=== PATIENT | female | born 1945 | race Two or more races ===

== ENCOUNTER 2020-08-20 08:28 | Outpatient (REF) | payer MEDICARE, SELFPAY ==
[2020-08-20 09:55] LABS: Estimated Average Glucose 103 mg/dL; Hemoglobin A1c % 5.2 %
[2020-08-20 10:12] LABS: Alanine Aminotransferase 15 U/L (0-31); Alkaline Phosphatase 69 U/L (39-117); Anion Gap 12 (12-20); Aspartate Amino Transferase 34 U/L (5-31); Bilirubin Total 0.3 mg/dL (0.0-1.0); Blood Urea Nitrogen 12 mg/dL (9-16); Calcium 8.7 mg/dL (8.4-10.2); Carbon Dioxide 29 mmol/L (22-29); Chloride 104 mmol/L (96-108); Cholesterol 103 mg/dL; Estimated Glomerular Filt Rate > 60; Glucose Fasting 85 mg/dL (60-99); HDL Cholesterol 42 mg/dL; LDL Cholesterol Calculated 51 mg/dl; Potassium 3.8 mmol/l (3.3-5.1); Sodium 141 mmol/L (135-145); Total Protein 6.8 g/dL (6.5-8.0); Triglycerides 52 mg/dL
== END 2020-08-20 08:29 | disposition home or self-care (01) ==
LOC: HO.LAB 08:28
PROVIDERS: PCP Internal Medicine; Visit Provider Internal Medicine
DX: E78.00 Pure hypercholesterolemia, unspecified (principal)
CPT/HCPCS: 80053; 80061; 83036

== ENCOUNTER 2020-09-02 14:51 | Outpatient (REF) | payer MEDICARE, SELFPAY | END 2020-09-02 14:52 | disposition home or self-care (01) | LOC: HO.LAB 14:51 | PROVIDERS: Visit Provider Internal Medicine | DX: Z20.828 Contact with and (suspected) exposure to other viral communicable diseases (principal) | CPT/HCPCS: C9803; U0003 ==

== ENCOUNTER 2020-10-17 13:39 | Outpatient (REF) | payer MEDICARE, SELFPAY | END 2020-10-17 13:40 | disposition home or self-care (01) | LOC: HO.LAB 13:39 | PROVIDERS: Visit Provider Internal Medicine | DX: Z20.828 Contact with and (suspected) exposure to other viral communicable diseases (principal) | CPT/HCPCS: C9803; U0003 ==

== ENCOUNTER 2021-01-24 15:26 | Outpatient (REF) | payer MEDICARE, SELFPAY | END 2021-01-24 15:27 | disposition home or self-care (01) | LOC: HO.HOSX 15:26 | PROVIDERS: Visit Provider Orthopaedic Surgery | DX: Z13.89 Encounter for screening for other disorder (principal) ==

== ENCOUNTER 2021-01-30 09:35 | Outpatient (REF) | payer MEDICARE, SELFPAY ==
[2021-01-30 10:21] LABS: MANUAL DIFF FLAG NO
[2021-01-30 10:31] LABS: Basophils Percent Auto 0.5 % (0-2); Eosinophils Absolute Auto 0.1 X10*3/uL (0.0-0.4); Eosinophils Percent Auto 1.6 % (0-4); Hematocrit 37.8 % (37-47); Hemoglobin 12.4 g/dl (12.0-16.0); Imm Gran Abs Auto 0.01 X10*3/uL (0.00-0.03); Imm Gran Pct Auto 0.2 % (0.0-0.4); Lymphocytes Absolute Auto 1.4 X10*3/uL (1.2-4.9); Lymphocytes Percent Auto 32.3 % (20-40); Mean Corpuscular HGB Conc 32.8 g/dl (31.0-35.0); Mean Corpuscular Hemoglobin 30.5 pg (27.0-33.0); Mean Corpuscular Volume 93.1 fL (80-98); Mean Platelet Volume 10.4 fL (9.4-12.3); Monocytes Absolute Auto 0.3 X10*3/uL (0.1-1.2); Monocytes Percent Auto 6.1 % (2-11); Neutrophils Absolute Auto 2.5 X10*3/uL (2.0-8.3); Neutrophils Percent Auto 59.3 % (45-73); Platelet Count 291 X10*3/uL (160-400); Red Blood Count 4.06 X10*6/uL (4.20-5.50); Red Cell Distribution Width 13.1 % (11.0-16.0); White Blood Count 4.3 X10*3/uL (4.8-10.8)
[2021-01-30 10:46] LABS: Alanine Aminotransferase 18 U/L (0-31); Albumin Level 3.9 g/dL (3.5-5.0); Alkaline Phosphatase 66 U/L (39-117); Aspartate Amino Transferase 27 U/L (5-31); Bilirubin Total 0.5 mg/dL (0.0-1.0); Blood Urea Nitrogen 12 mg/dL (9-16); Calcium 9.1 mg/dL (8.4-10.2); Cholesterol 123 mg/dL; Estimated Glomerular Filt Rate > 60; Glucose Random 95 mg/dL (60-115); HDL Cholesterol 45 mg/dL; LDL Cholesterol Calculated 62 mg/dl; Total Protein 6.8 g/dL (6.5-8.0); Triglycerides 81 mg/dL
[2021-01-30 10:56] LABS: Anion Gap 11 (12-20); Carbon Dioxide 30 mmol/L (22-29); Chloride 105 mmol/L (96-108); Potassium 3.8 mmol/L (3.3-5.1); Sodium 142 mmol/L (135-145)
[2021-01-30 11:10] LABS: Free T4 (Free Thyroxine) 0.84 ng/dL (0.71-1.85); Thyroid Stimulating Hormone 0.88 uIU/mL (0.32-4.0); Vitamin D 25-OH Total 13.9 ng/mL (>30)
[2021-01-30 11:22] LABS: Folate 18.3 ng/mL (> or = 4.0); Vitamin B12 1196 pg/mL (200-900)
== END 2021-01-30 09:36 | disposition home or self-care (01) ==
LOC: HO.LAB 09:35
PROVIDERS: PCP Internal Medicine; Visit Provider Internal Medicine
DX: E78.00 Pure hypercholesterolemia, unspecified (principal)
CPT/HCPCS: 36415; 80053; 80061; 82306; 82607; 82746; 84439; 84443; 85025

== ENCOUNTER 2021-06-20 14:30 | Outpatient (REF) | payer MEDICARE, SELFPAY ==
--- NOTE | ~2021-06-20 | MM_ITS ---
EXAMINATION: MM SCREENING DIGITAL BREAST TOMOSYNTHESIS, BILATERAL CLINICAL INFORMATION: Screening. Asymptomatic. The lifetime risk of breast cancer based on the Tyrer-Cuzick Model is 3%. COMPARISON: Mammography: 11/24/2019, 11/06/2018, 10/25/2017 TECHNIQUE: Digital breast tomosynthesis is performed in both the craniocaudal and mediolateral oblique views along with computer-aided detection (CAD). Synthesized 2D images are generated from the tomosynthesis. FINDINGS: There are scattered areas of fibroglandular density (ACR BI-RADS breast composition Category b). There are no significant masses, abnormal calcifications, or other abnormalities. Parenchymal pattern is similar to prior studies. No developing density. No significant changes. MM/MM tomosynthesis screening BI IMPRESSION: No mammographic evidence of malignancy. ASSESSMENT: BI-RADS 1: Negative RECOMMENDATION: Routine annual mammography screening. This patient's information was entered into a reminder system with a target due date for their next mammogram.
== END 2021-06-20 14:31 | disposition home or self-care (01) ==
LOC: HO.MAMMO 14:30
PROVIDERS: Visit Provider Internal Medicine
DX: Z12.31 Encounter for screening mammogram for malignant neoplasm of breast (principal)
CPT/HCPCS: 77063; 77067

== ENCOUNTER 2021-06-26 16:00 | Outpatient (REF) | payer MEDICARE, SELFPAY ==
[2021-06-26 17:05] LABS: Hematocrit 37.8 % (37-47); Hemoglobin 12.4 g/dl (12.0-16.0); Mean Corpuscular HGB Conc 32.8 g/dl (31.0-35.0); Mean Corpuscular Hemoglobin 30.4 pg (27.0-33.0); Mean Corpuscular Volume 92.6 fL (80-98); Mean Platelet Volume 10.3 fL (9.4-12.3); Platelet Count 300 X10*3/uL (160-400); Red Blood Count 4.08 X10*6/uL (4.20-5.50); Red Cell Distribution Width 12.9 % (11.0-16.0)
[2021-06-26 17:30] LABS: Alanine Aminotransferase 14 U/L (0-31); Albumin Level 4.2 g/dL (3.5-5.0); Alkaline Phosphatase 74 U/L (39-117); Anion Gap 12 (12-20); Aspartate Amino Transferase 24 U/L (5-31); Bilirubin Direct 0.2 mg/dL (0.0-0.5); Bilirubin Total 0.5 mg/dL (0.0-1.0); Blood Urea Nitrogen 12 mg/dL (9-16); Calcium 10.1 mg/dL (8.4-10.2); Carbon Dioxide 32 mmol/L (22-29); Chloride 104 mmol/L (96-108); Estimated Glomerular Filt Rate > 60; Glucose Random 88 mg/dL (60-115); Potassium 3.9 mmol/L (3.3-5.1); Sodium 144 mmol/L (135-145); Total Protein 7.4 g/dL (6.5-8.0)
[2021-06-26 17:53] LABS: Thyroid Stimulating Hormone 1.54 uIU/mL (0.32-4.0)
== END 2021-06-26 16:01 | disposition home or self-care (01) ==
LOC: HO.LAB 16:00
PROVIDERS: PCP Internal Medicine; Visit Provider Internal Medicine
DX: I42.9 Cardiomyopathy, unspecified (principal)
CPT/HCPCS: 36415; 80048; 80076; 84443; 85027

== ENCOUNTER 2021-07-10 07:58 | Day surgery (SDC) | payer MEDICARE, SELFPAY ==
[2021-07-04 15:26] VITALS: BMI 33.4
--- NOTE | 2021-07-06 07:37 | MHC.SHP ---
Pre-Procedural Eval Section A Date of Service: 07/06/21 The patient is an INPATIENT: No Changes since office visit: No Cold of Flu in the past 2 weeks, No New Medical Problems, No Changes in Medication and No Patient answered all questions The History & Physical has been completed within 30 days and I have reviewed it.: Yes Section B Chief Complaint: cataract right eye Allergies: Allergies Allergy/AdvReac Type Severity Reaction Status Date / Time Penicillins Allergy Severe DIFFICULTY Verified 06/26/21 15:20 BREATHING atorvastatin [From Lipitor] Allergy Unknown Unknown Verified 06/26/21 15:20 FRUITS Allergy Intermediate ITCHY Uncoded 07/14/20 15:38 THROAT, HOARSE VOICE SOMETIMES SOB Plan Diagnosis/Plan: Unchanged I have reviewed the history and physical and performed a pertinent physical examination on my patient. No changes have occurred unless specified.
--- NOTE | 2021-07-07 08:34 | P.CONAN_ITS ---
Documented by User: Nuria Gaviria NP 07/07/21 08:35 HPI - Anesthesia Eval Consult details Narrative: 76yo F for Right Cataract Extraction IOL Insertion PCP cleared No previous cataract on record [facility] Active Problems Active Problems: All Active Problems (Updated 07/04/21 @ 15:21 by Balbina Burr, MELANY) Knee pain, right (Acute) Anserine bursitis (Acute) Peripheral vascular disease (Acute) Osteoarthritis of knee (Acute) Vitamin D deficiency (Acute) Breast cancer screening by mammogram (Acute) Preoperative clearance (Acute) Cataract (Acute) Hypertension (Acute) Hypercholesterolemia (Acute) GERD (gastroesophageal reflux disease) (Acute) Anxiety (Acute) Cardiomyopathy (Acute) Obesity (BMI 30-39.9) (Acute) Asthma (Acute) Coronary artery disease (Acute) Past Medical History Medical History Anxiety Asthma Bile salt-induced diarrhea Cardiomyopathy Coronary artery disease COVID-19 vaccine series completed GERD (gastroesophageal reflux disease) Hypercholesterolemia Hypertension Ischemic colitis Mitral regurgitation Obesity (BMI 30-39.9) Vaginal vault prolapse Family History Family History Father Cancer Mother Cancer Surgical History Surgical History History of cholecystectomy History of neck surgery History of thumb surgery History of tubal ligation Social History Social History Housing: Condominium Alcohol intake: never Patient Tobacco Use Status: Never used Tobacco Second Hand Smoke Exposure: No Use of substances other than those prescribed or required for medical reasons: No Are you DNR?: No Advance Directives: No Advance Directives Information Provided: Yes (daughter states her mother does not have a HCP) Advance Directives on File: No Recently lost weight without trying: No Eating poorly because of decreased appetite: No Nutrition Risks: No Nutritional Risk service: No Current occupational status: disabled Meds Allergies Allergy/AdvReac Type Severity Reaction Status Date / Time Penicillins Allergy Severe DIFFICULTY Verified 06/26/21 15:20 BREATHING atorvastatin [From Lipitor] Allergy Unknown Unknown Verified 06/26/21 15:20 FRUITS Allergy Intermediate ITCHY Uncoded 07/14/20 15:38 THROAT, HOARSE VOICE SOMETIMES SOB Exam Exam Date and Time: July 07, 2021 0834 Height,Weight and Vital Signs: Height 5 ft 1 in Weight 80.286 kg Assessment and Plan Assessment Anesthesia Assessment: Chart Reviewed Documented by User: Audra Henning MD 07/10/21 11:17 [facility] Active Problems Active Problems: All Active Problems (Updated 07/04/21 @ 15:21 by Balbina Burr RN) Knee pain, right (Acute) Anserine bursitis (Acute) Peripheral vascular disease (Acute) Osteoarthritis of knee (Acute) Vitamin D deficiency (Acute) Breast cancer screening by mammogram (Acute) Preoperative clearance (Acute) Cataract (Acute) Hypertension (Acute). Uncontrolled Systolic 224mmHg today. Dr Osman aware. Hypercholesterolemia (Acute) GERD (gastroesophageal reflux disease) (Acute) Anxiety (Acute) Cardiomyopathy (Acute) Obesity (BMI 30-39.9) (Acute) Asthma (Acute) Coronary artery disease (Acute) Past Medical History Medical History Anxiety Asthma Bile salt-induced diarrhea Cardiomyopathy Coronary artery disease COVID-19 vaccine series completed GERD (gastroesophageal reflux disease) Hypercholesterolemia Hypertension Ischemic colitis Mitral regurgitation Obesity (BMI 30-39.9) Vaginal vault prolapse Family History Family History Father Cancer Mother Cancer Family history of problems with anesthesia: No Surgical History Surgical History History of cholecystectomy History of neck surgery History of thumb surgery History of tubal ligation History of Problems with Anesthesia: Yes (PONV) Social History Social History Housing: Condominium Alcohol intake: never Patient Tobacco Use Status: Never used Tobacco Second Hand Smoke Exposure: No Use of substances other than those prescribed or required for medical reasons: No Are you DNR?: No Advance Directives: No Advance Directives Information Provided: Yes (daughter states her mother does not have a HCP) Advance Directives on File: No Recently lost weight without trying: No Eating poorly because of decreased appetite: No Nutrition Risks: No Nutritional Risk service: No Current occupational status: disabled Meds Allergies Allergy/AdvReac Type Severity Reaction Status Date / Time Penicillins Allergy Severe DIFFICULTY Verified 06/26/21 15:20 BREATHING atorvastatin [From Lipitor] Allergy Unknown Unknown Verified 06/26/21 15:20 FRUITS Allergy Intermediate ITCHY Uncoded 07/14/20 15:38 THROAT, HOARSE VOICE SOMETIMES SOB Exam Height,Weight and Vital Signs: Height 5 ft 1 in Weight 80.286 kg Vital Signs Temp Pulse Resp BP Pulse Ox 07/10/21 09:35 96.5 F L 68 18 224/77 H 98 Airway Mallampati Class: II TM Dist: >3cm Neck ROM: Full Loose/Missing/Broken Teeth: Yes (Some broken) Heart: RRR Lungs: CTAB Assessment and Plan Assessment Anesthesia Assessment: Anesthesia Plan Discussed Final Anesthetic Review Family History of Problems with Anesthesia: No History of Problems with Anesthesia: Yes (PONV) NPO: Yes ASA Class: III Final Preanesthetic Review: No Changes in Pt Med Stat, Meds/Allgs Chart Reviewed, Consent Obtained/Reviewed and Anes Risks/Benef Reviewed Patient Risk: Intermediate Procedure Risk: Low Assessment/Block/Sedation in SS: Assess/Block/Sedation-SS Anesthetic Plan Anesthetic Plan: MAC: and Other (IV anti-emetic) Disposition: Standard PACU
[2021-07-10 09:35] VITALS: BP 224/77; PULSE 68; RESP 18; TEMP 35.8; O2SAT 98
[2021-07-10] MEDS: Tetracaine HCl/PF 0.5% Oph Sol 4 ML DROPS 1 DROP EYE-RIGHT (09:46)
[2021-07-10] MEDS: Tropicamide 1 % Ophth Sol 3 ML BTL 1 DROP EYE-RIGHT ×3 (09:47→09:55)
[2021-07-10] MEDS: Phenylephrine HCL 2.5% Oph SoL 2 ML BOTTLE 1 DROP EYE-RIGHT ×2 (09:48→09:53)
[2021-07-10] MEDS: Lactated Ringers 500 ML 50 ML IV (10:07)
--- NOTE | 2021-07-10 10:47 | HO.PNOPHT ---
Ophthalmology Procedure Procedure Date of Service: 07/10/21 Ophthalmology Viscoelastic: Ian Randolpht Dual Pack Pro Ophthalmology Lenses: TECSHEILA [id number] (22) Procedure Notes: PREOPERATIVE DIAGNOSIS: Decreased visual acuity right eye secondary to cataract POSTOPERATIVE DIAGNOSIS: Same PROCEDURE: Right cataract extraction with intraocular lens insertion SURGEON: Thomas Osman M.D. ANESTHESIA: Topical/MAC ESTIMATED BLOOD LOSS: None COMPLICATIONS: None After obtaining informed consent, the patient was brought to the operating room suite and placed in the supine position. After adequate sedation per anesthesia, topical drops of Tetracaine were given to the right eye. The eye was then prepped and draped in the usual sterile fashion. The operating room microscope was then positioned over the operative eye and a lid speculum placed. A paracentesis was created. Viscoelastic was then instilled into the anterior chamber. A three plane incision was then created temporally, utilizing a 2.85 mm keratome. Capsulotomy forceps were then utilized to create a circular tear capsulotomy. Hydrodissection and hydrodelineation were carried out until adequate mobilization of the nucleus occurred. Phacoemulsification was then utilized to remove the dense central nucleus followed by removal of the cortical material utilizing the automated aspiration irrigation unit. Viscoelastic was instilled into the posterior capsular bag followed by placement of a posterior chamber intraocular lens without difficulty. The residual Viscoelastic was then removed utilizing the automated IA machine. The wound was checked and found to be watertight. The patient tolerated the procedure well and the lid speculum was removed. Intracameral injection of Vigamox 0.1 mL followed by a subtenon injection of Kenalog-40 0.2 mL were administered. The patient will be seen in the a.m.
[2021-07-10 11:09] VITALS: BP 168/66; PULSE 49; RESP 16; TEMP 36.1; O2SAT 96
== END 2021-07-10 11:26 ==
LOC: HO.SSS 07:58
PROVIDERS: PCP Internal Medicine; Visit Provider Ophthalmology
PROC: (CPT 66985; principal; 2021-07-10 10:50)
DX: H25.11 Age-related nuclear cataract, right eye (principal); H52.4 Presbyopia; H40.013 Open angle with borderline findings, low risk, bilateral; Z83.511 Family history of glaucoma; H52.209 Unspecified astigmatism, unspecified eye; I10 Essential (primary) hypertension; J45.909 Unspecified asthma, uncomplicated; Z79.899 Other long term (current) drug therapy; Z79.82 Long term (current) use of aspirin; Z88.0 Allergy status to penicillin
CPT/HCPCS: 66984; J2250; J3010; J3300; V2632

== ENCOUNTER 2021-07-24 08:03 | Day surgery (SDC) | payer MEDICARE, SELFPAY ==
[2021-07-04 15:30] VITALS: BMI 33.4
--- NOTE | 2021-07-19 12:59 | MHC.SHP ---
Pre-Procedural Eval Section A Date of Service: 07/19/21 The patient is an INPATIENT: No Changes since office visit: No Cold of Flu in the past 2 weeks, No New Medical Problems, No Changes in Medication and No Patient answered all questions The History & Physical has been completed within 30 days and I have reviewed it.: Yes Section B Chief Complaint: cataract left eye Allergies: Allergies Allergy/AdvReac Type Severity Reaction Status Date / Time Penicillins Allergy Severe DIFFICULTY Verified 06/26/21 15:20 BREATHING atorvastatin [From Lipitor] Allergy Unknown Unknown Verified 06/26/21 15:20 FRUITS Allergy Intermediate ITCHY Uncoded 07/14/20 15:38 THROAT, HOARSE VOICE SOMETIMES SOB Plan Diagnosis/Plan: Unchanged I have reviewed the history and physical and performed a pertinent physical examination on my patient. No changes have occurred unless specified.
--- NOTE | 2021-07-21 08:46 | P.CONAN_ITS ---
Documented by User: Nuria Gaviria NP 07/21/21 08:48 HPI - Anesthesia Eval Consult details Narrative: 76yo F for Left Cataract Extraction IOL Insertion PCP cleared R eye 07/10/21 with MAC: Fent 50, Midaz 2, Labetolol 10 PMFSH Active Problems Active Problems: All Active Problems (Updated 07/04/21 @ 15:21 by Balbina Burr RN) Knee pain, right (Acute) Anserine bursitis (Acute) Peripheral vascular disease (Acute) Osteoarthritis of knee (Acute) Vitamin D deficiency (Acute) Breast cancer screening by mammogram (Acute) Preoperative clearance (Acute) Cataract (Acute) Hypertension (Acute) Hypercholesterolemia (Acute) GERD (gastroesophageal reflux disease) (Acute) Anxiety (Acute) Cardiomyopathy (Acute) Obesity (BMI 30-39.9) (Acute) Asthma (Acute) Coronary artery disease (Acute) Past Medical History Medical History Anxiety Asthma Bile salt-induced diarrhea Cardiomyopathy Coronary artery disease COVID-19 vaccine series completed GERD (gastroesophageal reflux disease) Hypercholesterolemia Hypertension Ischemic colitis Mitral regurgitation Obesity (BMI 30-39.9) Vaginal vault prolapse Family History Family History Father Cancer Mother Cancer Family history of problems with anesthesia: No Surgical History Surgical History History of cholecystectomy History of neck surgery History of thumb surgery History of tubal ligation History of Problems with Anesthesia: Yes (PONV) Social History Social History Housing: Condominium Alcohol intake: never Patient Tobacco Use Status: Never used Tobacco Second Hand Smoke Exposure: No Use of substances other than those prescribed or required for medical reasons: No Have you been hit, kicked, punched, or otherwise hurt by someone within the past year? If so, by whom?: No Are you DNR?: No Advance Directives: No Advance Directives Information Provided: Yes (daughter states her mother does n ot have a HCP) Advance Directives on File: No Recently lost weight without trying: No Eating poorly because of decreased appetite: No Nutrition Risks: No Nutritional Risk service: No Current occupational status: disabled Meds Allergies Allergy/AdvReac Type Severity Reaction Status Date / Time Penicillins Allergy Severe DIFFICULTY Verified 06/26/21 15:20 BREATHING atorvastatin [From Lipitor] Allergy Unknown Unknown Verified 06/26/21 15:20 FRUITS Allergy Intermediate ITCHY Uncoded 07/14/20 15:38 THROAT, HOARSE VOICE SOMETIMES SOB Exam Exam Date and Time: July 21, 2021 0846 Height,Weight and Vital Signs: Height 5 ft 1 in Weight 80.286 kg Assessment and Plan Assessment Anesthesia Assessment: Chart Reviewed Final Anesthetic Review Family History of Problems with Anesthesia: No History of Problems with Anesthesia: Yes (PONV) Documented by User: Freddie Lockwood MD 07/24/21 08:38 PMFSH Past Medical History Medical History Anxiety Asthma Bile salt-induced diarrhea Cardiomyopathy Coronary artery disease COVID-19 vaccine series completed GERD (gastroesophageal reflux disease) Hypercholesterolemia Hypertension Ischemic colitis Mitral regurgitation Obesity (BMI 30-39.9) Vaginal vault prolapse Family History Family History Father Cancer Mother Cancer Surgical History Surgical History History of cholecystectomy History of neck surgery History of thumb surgery History of tubal ligation Social History Social History Housing: Condominium Alcohol intake: never Patient Tobacco Use Status: Never used Tobacco Second Hand Smoke Exposure: No Use of substances other than those prescribed or required for medical reasons: No Have you been hit, kicked, punched, or otherwise hurt by someone within the past year? If so, by whom?: No Are you DNR?: No Advance Directives: No Advance Directives Information Provided: Yes (daughter states her mother does not have a HCP) Advance Directives on File: No Recently lost weight without trying: No Eating poorly because of decreased appetite: No Nutrition Risks: No Nutritional Risk service: No Current occupational status: disabled Meds Allergies Allergy/AdvReac Type Severity Reaction Status Date / Time Penicillins Allergy Severe DIFFICULTY Verified 06/26/21 15:20 BREATHING atorvastatin [From Lipitor] Allergy Unknown Unknown Verified 06/26/21 15:20 FRUITS Allergy Intermediate ITCHY Uncoded 07/14/20 15:38 THROAT, HOARSE VOICE SOMETIMES SOB Exam Airway Mallampati Class: II TM Dist: >3cm Neck ROM: Full Partial: Upper and Lower Loose/Missing/Broken Teeth: Yes (only 2 teeth) Heart: [id number] Lungs: CTA b/l Assessment and Plan Assessment Anesthesia Assessment: Anesthesia Plan Discussed Final Anesthetic Review NPO: Yes ASA Class: III Final Preanesthetic Review: No Changes in Pt Med Stat, Meds/Allgs Chart Reviewed, Consent Obtained/Reviewed and Anes Risks/Benef Reviewed Patient Risk: Intermediate Procedure Risk: Low Assessment/Block/Sedation in SS: Assess/Block/Sedation-SS Anesthetic Plan Anesthetic Plan: MAC: and Agree w/ Assess. and Plan Disposition: Standard PACU
[2021-07-24 08:27] VITALS: BP 136/52; PULSE 48; RESP 16; TEMP 36.7; O2SAT 100
[2021-07-24] MEDS: Tetracaine HCl/PF 0.5% Oph Sol 4 ML DROPS 1 DROP EYE-LEFT (08:36)
[2021-07-24] MEDS: Lactated Ringers 500 ML 50 ML IV (08:37)
[2021-07-24] MEDS: Tropicamide 1 % Ophth Sol 3 ML BTL 1 DROP EYE-LEFT ×3 (08:38→08:49)
[2021-07-24] MEDS: Phenylephrine HCL 2.5% Oph SoL 2 ML BOTTLE 1 DROP EYE-LEFT ×3 (08:41→08:54)
--- NOTE | 2021-07-24 09:52 | HO.PNOPHT ---
Ophthalmology Procedure Procedure Date of Service: 07/24/21 Ophthalmology Viscoelastic: Healon Duet Dual Pack Pro Ophthalmology Lenses: TECSHEILA [id number] (22) Procedure Notes: PREOPERATIVE DIAGNOSIS: Decreased visual acuity left eye secondary to cataract POSTOPERATIVE DIAGNOSIS: Same PROCEDURE: Left cataract extraction with intraocular lens insertion SURGEON: Thomas Osman M.D. ANESTHESIA: Topical/MAC ESTIMATED BLOOD LOSS: None COMPLICATIONS: None After obtaining informed consent, the patient was brought to the operation room suite and placed in the supine position. After adequate sedation per anesthesia, topical drops of Tetracaine were given to the left eye. The eye was then prepped and draped in the usual sterile fashion. The operating room microscope was then positioned over the operative eye and a lid speculum placed. A paracentesis was created. Viscoelastic was then instilled into the anterior chamber. A three plane incision was then created temporally, utilizing a 2.85 mm keratome. Capsulotomy forceps were then utilized to create a circular tear capsulotomy. Hydrodissection and hydrodelineation were carried out until adequate mobilization of the nucleus occurred. Phacoemulsification was then utilized to remove the dense central nucleus followed by removal of the cortical material utilizing the automated aspiration irrigation unit. Viscoat elastic was instilled into the posterior capsular bag followed by placement of a posterior chamber intraocular lens without difficulty. The residual Viscoat elastic was then removed utilizing the automated IA machine. The wound was check and found to be watertight. The patient tolerated the procedure well and the lid speculum was removed. Intracameral injection of Vigamox 0.1 mL followed by a subtenon injection of Kenalog-40 0.2 mL were administered. The patient will be seen in the a.m.
[2021-07-24 10:17] VITALS: BP 152/62; PULSE 66; RESP 17; TEMP 36.1; O2SAT 97
[2021-07-24] MEDS: ondansetron HCL 4 MG/2 ML VIAL IVPUSH (10:25)
== END 2021-07-24 10:38 | disposition home or self-care (01) ==
PROVIDERS: PCP Internal Medicine; Visit Provider Ophthalmology
PROC: (CPT 66985; principal; 2021-07-24 10:00)
DX: H25.12 Age-related nuclear cataract, left eye (principal); I10 Essential (primary) hypertension; J45.909 Unspecified asthma, uncomplicated; Z88.0 Allergy status to penicillin
CPT/HCPCS: 66984; J2250; J2405; J3010; J3300; V2632

== ENCOUNTER → 2021-12-07 14:54 | Outpatient (BNVA) | payer MEDICARE, SELFPAY | PROVIDERS: PCP Internal Medicine; Visit Provider Surgery Vascular Surgery | DX: I83.11 Varicose veins of right lower extremity with inflammation (principal) | CPT/HCPCS: 99202 ==

== ENCOUNTER 2022-01-15 09:02 | Outpatient (REF) | payer MEDICARE, SELFPAY ==
[2022-01-15 09:56] LABS: MANUAL DIFF FLAG NO
[2022-01-15 10:25] LABS: Basophils Percent Auto 0.5 % (0-2); Eosinophils Absolute Auto 0.1 X10*3/uL (0.0-0.4); Eosinophils Percent Auto 0.9 % (0-4); Hematocrit 37.5 % (37.0-47.0); Hemoglobin 12.1 g/dl (12.0-16.0); Imm Gran Abs Auto 0.03 X10*3/uL (0.00-0.03); Imm Gran Pct Auto 0.5 % (0.0-0.4); Lymphocytes Absolute Auto 1.5 X10*3/uL (1.2-4.9); Lymphocytes Percent Auto 27.7 % (20-40); Mean Corpuscular HGB Conc 32.3 g/dl (31.0-35.0); Mean Corpuscular Hemoglobin 30.3 pg (27.0-33.0); Mean Corpuscular Volume 93.8 fL (80.0-98.0); Mean Platelet Volume 10.4 fL (9.4-12.3); Monocytes Absolute Auto 0.3 X10*3/uL (0.1-1.2); Monocytes Percent Auto 4.9 % (2-11); Neutrophils Absolute Auto 3.6 x10*3/uL (2.0-8.3); Neutrophils Percent Auto 65.5 % (45-73); Platelet Count 256 X10*3/uL (160-400); Red Cell Distribution Width 13.3 % (11.0-16.0); White Blood Count 5.6 X10*3/uL (4.8-10.8)
[2022-01-15 10:36] LABS: Estimated Average Glucose 114 mg/dL; Hemoglobin A1c % 5.6 %
[2022-01-15 10:57] LABS: Alanine Aminotransferase 17 U/L (0-31); Albumin Level 3.9 g/dL (3.5-5.0); Alkaline Phosphatase 63 U/L (39-117); Anion Gap 11 (12-20); Aspartate Amino Transferase 28 U/L (5-31); Bilirubin Total 0.7 mg/dL (0.0-1.0); Blood Urea Nitrogen 8 mg/dL (9-16); Calcium 9.2 mg/dL (8.4-10.2); Carbon Dioxide 30 mmol/L (22-29); Chloride 104 mmol/L (96-108); Cholesterol 133 mg/dL; Estimated Glomerular Filt Rate > 60; Glucose Random 97 mg/dL (60-115); HDL Cholesterol 48 mg/dL; LDL Cholesterol Calculated 69 mg/dl; Potassium 3.5 mmol/L (3.3-5.1); Sodium 141 mmol/L (135-145); Triglycerides 80 mg/dL
[2022-01-15 10:59] LABS: B Type Natriuretic Peptide 863 pg/mL (<100)
[2022-01-15 11:23] LABS: Free T4 (Free Thyroxine) 0.94 ng/dL (0.71-1.85); Thyroid Stimulating Hormone 0.85 uIU/mL (0.32-4.0); Vitamin D 25-OH Total 15.3 ng/mL (>30)
[2022-01-15 11:38] LABS: Folate 12.2 ng/mL (> or = 4.0); Vitamin B12 734 pg/mL (200-900)
== END 2022-01-15 09:03 | disposition home or self-care (01) ==
LOC: HO.LAB 09:02
PROVIDERS: PCP Internal Medicine; Visit Provider Internal Medicine
DX: I10 Essential (primary) hypertension (principal); E78.00 Pure hypercholesterolemia, unspecified; I25.10 Atherosclerotic heart disease of native coronary artery without angina pectoris
CPT/HCPCS: 36415; 80053; 80061; 82306; 82607; 82746; 83036; 83880; 84439; 84443; 85025

== ENCOUNTER 2022-09-24 15:44 | Outpatient (REF) | payer OTHER, SELFPAY ==
[2022-09-29 12:10] LABS: Renin 1.92 ng/mL/h (0.25-5.82)
[2022-10-03 14:33] LABS: Catecholamine Frac, Total 888 pg/mL
== END 2022-09-24 15:45 | disposition home or self-care (01) ==
LOC: HO.LAB 15:44
PROVIDERS: PCP Internal Medicine; Visit Provider Internal Medicine Hypertension Specialist
DX: I10 Essential (primary) hypertension (principal)
CPT/HCPCS: 36415; 82088; 82384; 84244

== ENCOUNTER 2022-09-27 09:36 | Outpatient (REF) | payer OTHER, SELFPAY ==
--- NOTE | ~2022-09-27 | MM_ITS ---
EXAMINATION: MM SCREENING DIGITAL BREAST TOMOSYNTHESIS, BILATERAL CLINICAL INFORMATION: Screening. Asymptomatic. The lifetime risk of breast cancer based on the Tyrer-Cuzick Model is 1.8%. COMPARISON: Mammography: June 20, 2021 and studies dating back to April 22, 2014 TECHNIQUE: Digital breast tomosynthesis is performed in both the craniocaudal and mediolateral oblique views along with computer-aided detection (CAD). Synthesized 2D images are generated from the tomosynthesis. FINDINGS: There are scattered areas of fibroglandular density (ACR BI-RADS breast composition Category b). There are no significant masses, abnormal calcifications, or other abnormalities. MM/MM tomosynthesis screening BI IMPRESSION: No significant changes from prior exam. ASSESSMENT: BI-RADS 1: Negative RECOMMENDATION: Routine annual mammography screening. This patient's information was entered into a reminder system with a target due date for their next mammogram.
--- NOTE | ~2022-09-27 | MM_ITS ---
EXAMINATION: BONE DENSITOMETRY CLINICAL INDICATION: Age-related osteoporosis without current pathological fracture. COMPARISON: Previous BD dated 12/04/2016 and baseline BD dated 06/10/2008. TECHNIQUE: Using a [employer] DXA System (software version: 13.1) manufactured by [employer], dual-energy x-ray absorptiometry was performed of the lumbar spine and left hip. The images are of good technical quality. Summary results are attached. FINDINGS: AP SPINE L1-L2 (excluding L3 and L4): The data of L1-L4 has been changed to exclude the L3 and L4 vertebral bodies, because degenerative changes at these levels may cause overestimation of lumbar spine density. Current: BMD 1.364 g/cm2, Z-score 2.7, T-score 1.7, normal, 1.9% increase from previous, 4.9% increase from baseline (<5% change is not significant). Prior: BMD 1.338 g/cm2. Baseline: BMD 1.300 g/cm2. LEFT FEMUR, NECK: Current: BMD 0.927 g/cm2, Z-score 0.7, T-score -0.8, normal. Prior: BMD 1.021 g/cm2. Baseline: BMD 1.058 g/cm2. LEFT FEMUR, TOTAL: Current: BMD 1.139 g/cm2, Z-score 2.3, T-score 1.0, normal, 0.8% decrease from previous, 4.3% decrease from baseline (<5% change is not significant). Prior: BMD 1.148 g/cm2. Baseline: BMD 1.190 g/cm2. IDENTIFIED RISK FACTORS: Menopause, recurrent falls, history of fracture (adult). HISTORY OF FRACTURE: Wrist. MEDICATIONS: Vitamin D. MM/XR DEXA axial skeleton IMPRESSION: 1. DIAGNOSIS: Normal bone density based on the lowest T-score value of -0.8 in the femoral neck applying World Health Organization criteria. 2. 10-YEAR FRACTURE RISK PREDICTION, FRAX: According to the guidelines, FRAX calculation should only be performed on patients in the osteopenia bone density category. Therefore, FRAX was not performed on this patient. 3. Treatment Recommendations: NOF guidelines recommend consideration for treatment in postmenopausal women and men age 50 and older presenting with the following: -A hip or vertebral (clinical or morphometric) fracture. -T-score less than or equal to -2.5 at the femoral neck or spine after appropriate evaluation to exclude secondary causes. -Low bone mass at the hip or spine and a 10-year fracture probability by FRAX of greater than or equal to 3% for hip fracture or greater than or equal to 20% for major osteoporotic fracture based on the [place] adapted WHO algorithm. 4. Other Recommendations: All treatment decisions require clinical judgment and consideration of individual patient factors, including patient preferences, comorbidities, previous drug use, risk factors not captured in the FRAX model (e.g. frailty, falls, vitamin D deficiency, increased bone turnover, interval significant decline in bone density) and possible under or overestimation of fracture risk by FRAX. FUTURE SCAN RECOMMENDATION: People with diagnosed cases of osteoporosis or at high risk for fracture should have regular bone mineral density tests. For patients eligible for Medicare, routine testing is allowed once every 2 years. The testing frequency can be increased to one year for patients who have rapidly progressing disease, those who are receiving or discontinuing medical therapy to restore bone mass, or have additional risk factors.
== END 2022-09-27 09:37 | disposition home or self-care (01) ==
LOC: HO.MAMMO 09:36
PROVIDERS: PCP Internal Medicine; Visit Provider Internal Medicine
DX: Z12.31 Encounter for screening mammogram for malignant neoplasm of breast (principal); M81.0 Age-related osteoporosis without current pathological fracture
CPT/HCPCS: 77063; 77067; 77080

== ENCOUNTER → 2022-10-11 09:27 | Outpatient (REF) | payer OTHER, SELFPAY ==
--- NOTE | 2022-10-11 09:29 | CA_ITS ---
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 The calculated ejection fraction is 67% by biplane method. - There is mild aortic valve regurgitation. Findings Procedure Information Contrast agent, definity, is being given per protocol without apparent complications. Left Ventricle Normal left ventricular cavity size. There is normal left ventricular wall thickness. The left ventricular systolic function is normal. The calculated ejection fraction is 67% by biplane method. There is no evidence of regional wall motion abnormalities. Diastolic function is normal for age. Right Ventricle Normal right ventricular cavity size and systolic function. Atria Both atria are normal in size. Aortic Valve There is a normal trileaflet aortic valve. There is no aortic valve stenosis. There is mild aortic valve regurgitation. Mitral Valve The mitral valve appears normal. There is trace mitral valve regurgitation. There is no mitral valve stenosis. Pulmonic Valve The pulmonic valve is likely normal. Tricuspid Valve Normal tricuspid valve structure. There is trace tricuspid valve regurgitation. Tricuspid regurgitation envelope is inadequate for calculation of right ventricular systolic pressure. Great Vessels The asc aorta is normal in size. Venous The inferior vena cava is normal in size and collapses greater than 50% with inspiration. Pericardium/Pleural There is no evidence of pericardial effusion. Prior Study Comparison Changes noted compared to prior study dated: 05/29/2016. Wall motion abnormalities not seen. Measurements 2D Linear Measurements IVSd: 1.04 0.6-0.9/0.6-1.0 cm LVIDd: 4.26 3.9-5.3/4.2-5.9 cm LVIDd Index: 2.32 2.4-3.2/2.2-3.1 cm/m2 LVIDs: 2.87 2.0-3.6 cm LVPWd: 0.97 0.7-1.1 cm LA Diam: 3.60 2.7-3.8/3.0-4.0 cm LAIDs Index: 1.96 1.5-2.3 cm/m2 LV Mass: 175.83 67-162/88-224 g LV Mass Index: 95.56 43-95/49-115 g/m2 LVOT Diam: 1.90 3.0+(-)1.3 cm 2D Systolic Function EF 4C: 69.30 >55% EF 2C: 61.10 >55% EF BiP: 67.40 >55% Mitral Valve MV Pk E: 0.95 MV PK A: 0.88 MV Decel Time: 257.00 E/A: 1.10 E'Lateral: 10.20 E'Medial: 4.79 E/E' Med: 19.90 E/E' Lat: 9.30 PHT: 75.00 MVA PHT: 2.93 Decel Stafford: 3.70 Aortic Valve AoV Pk Russell: 1.83 AoV Mn Russell: 1.15 AoV VTI: 0.45 AoV Pk Grad: 13.00 Aov Mn Grad: 6.00 MUSA Cont.VTI: 2.15 AI Pk Russell: 4.52 AI Stafford: 2.17 LVOT LVOT Pk Russell: 1.26 LVOT Mn Russell: 0.85 LVOT VTI: 0.34 LVOT Pk Grad: 6.00 LVOT Mn Grad: 3.00 LVOT Diam: 1.90 LVOT Area: 2.84 Diastolic Function MV Pk E: 0.95 MV Pk A: 0.88 E/A: 1.10 E'Medial: 4.79 E/E' Med: 19.90 E' Laterial: 10.20 E/E' Lat: 9.30 Right Ventricle TAPSE (mm): 23.00 TVS' Russell: 11.20 Tricuspid Valve RA Press: 3.00 Great Vessels Aorta Sinus of Valsalva: 3.03 2.0-3.[address] Ridge: 2.38 1.7-3.4 cm Ao Asc: 3.30 2.1-3.4 cm Updated in Other Vendor System with Status of Final Wai Boone MD electronically signed on 10/13/2022 12:32:33 PM with status of Final
== END ==
LOC: HO.CARD 09:27
PROVIDERS: Visit Provider Internal Medicine
DX: I51.81 Takotsubo syndrome (principal)
CPT/HCPCS: 93306; Q9957

== ENCOUNTER 2022-12-31 10:04 | Outpatient (REF) | payer OTHER, SELFPAY ==
--- NOTE | ~2022-12-31 | US_ITS ---
EXAMINATION: US RETROPERITONEAL LIMITED (RENAL ONLY) RETROPERITONEAL DOPPLER CLINICAL INFORMATION: Essential hypertension. COMPARISON: None. TECHNIQUE: Routine grayscale imaging of kidneys was performed. In addition retroperitoneal Doppler was performed with attention to kidneys and aorta. FINDINGS: RIGHT KIDNEY: 9.9 x 4.6 x 6.0 cm (SAG x AP x TRV). The kidney is normal in size, contour, and echogenicity. Renal cortical thickness is normal. No calculi or focal parenchymal lesions. No hydronephrosis. LEFT KIDNEY: 10.6 x 5.4 x 4.7 cm (SAG x AP x TRV). The kidney is normal in size, contour, and echogenicity. Renal cortical thickness is normal. No calculi or focal parenchymal lesions. No hydronephrosis. DOPPLER IMAGING: Right Kidney: The proximal renal artery velocity measures 254 cm/s, midsegment measures 193 cm/s, distal segment measures 211 cm/s. Renal aortic ratio measures 2.99. Average resistive index 0.86. Left Kidney: The proximal renal artery velocity measures 163 cm/s, midsegment measures 1 58 cm/s and distal segment measures 109 cm/s. Renal aortic ratio measures 1.9. Average resistive index measures 0.82. The mid abdominal aorta peak systolic velocity measures 84.8 cm/s. US/US renal doppler IMPRESSION: Normal renal ultrasound. Normal peak systolic velocities and renal aortic ratio bilaterally. Resistive index is mildly elevated bilaterally likely from secondary and tertiary branch atherosclerosis.
--- NOTE | ~2022-12-31 | US_ITS ---
EXAMINATION: US RETROPERITONEAL LIMITED (RENAL ONLY) RETROPERITONEAL DOPPLER CLINICAL INFORMATION: Essential hypertension. COMPARISON: None. TECHNIQUE: Routine grayscale imaging of kidneys was performed. In addition retroperitoneal Doppler was performed with attention to kidneys and aorta. FINDINGS: RIGHT KIDNEY: 9.9 x 4.6 x 6.0 cm (SAG x AP x TRV). The kidney is normal in size, contour, and echogenicity. Renal cortical thickness is normal. No calculi or focal parenchymal lesions. No hydronephrosis. LEFT KIDNEY: 10.6 x 5.4 x 4.7 cm (SAG x AP x TRV). The kidney is normal in size, contour, and echogenicity. Renal cortical thickness is normal. No calculi or focal parenchymal lesions. No hydronephrosis. DOPPLER IMAGING: Right Kidney: The proximal renal artery velocity measures 254 cm/s, midsegment measures 193 cm/s, distal segment measures 211 cm/s. Renal aortic ratio measures 2.99. Average resistive index 0.86. Left Kidney: The proximal renal artery velocity measures 163 cm/s, midsegment measures 1 58 cm/s and distal segment measures 109 cm/s. Renal aortic ratio measures 1.9. Average resistive index measures 0.82. The mid abdominal aorta peak systolic velocity measures 84.8 cm/s. US/US renal BI IMPRESSION: Normal renal ultrasound. Normal peak systolic velocities and renal aortic ratio bilaterally. Resistive index is mildly elevated bilaterally likely from secondary and tertiary branch atherosclerosis.
== END 2022-12-31 10:05 | disposition home or self-care (01) ==
LOC: HO.HMGCX 10:04
PROVIDERS: PCP Internal Medicine; Visit Provider Internal Medicine Hypertension Specialist
DX: I10 Essential (primary) hypertension (principal)
CPT/HCPCS: 76775; 93975

== ENCOUNTER 2023-02-27 21:28 | Emergency (ER) | payer OTHER, SELFPAY ==
--- NOTE | 2023-02-27 21:28 | ECG_ITS ---
Test Reason : CHEST PAIN Blood Pressure : / mmHG Vent. Rate : 063 BPM Atrial Rate : 063 BPM P-R Int : 144 ms QRS Dur : 090 ms QT Int : 454 ms P-R-T Axes : 000 -37 081 degrees QTc Int : 464 ms Normal sinus rhythm Left axis deviation Left ventricular hypertrophy with repolarization abnormality ( R in aVL , You product ) Abnormal ECG When compared with ECG of 29-DEC-2019 18:38, Borderline criteria for Lateral infarct are no longer Present Referred By: Generic ED Physician Electronically Signed By:MONIKA FAUST MD
[2023-02-27 21:36] VITALS: BP 180/78; PULSE 50; O2SAT 97
[2023-02-27 21:48] VITALS: BP 210/81; PULSE 57; RESP 22; TEMP 36.9; O2SAT 98; BMI 35.7
[2023-02-27 21:52] VITALS: BP 210/81; PULSE 54; PULSE 57; RESP 20; TEMP 36.9; O2SAT 98
[2023-02-27 22:04] LABS: MANUAL DIFF FLAG NO
[2023-02-27 22:05] LABS: Basophils Percent Auto 0.6 % (0-2); Eosinophils Absolute Auto 0.1 X10*3/uL (0.0-0.4); Eosinophils Percent Auto 0.7 % (0-4); Hematocrit 37.6 % (37.0-47.0); Hemoglobin 12.8 g/dl (12.0-16.0); Imm Gran Abs Auto 0.02 X10*3/uL (0.00-0.03); Imm Gran Pct Auto 0.3 % (0.0-0.4); Lymphocytes Absolute Auto 2.5 X10*3/uL (1.2-4.9); Mean Corpuscular Hemoglobin 30.6 pg (27.0-33.0); Mean Platelet Volume 9.7 fL (9.4-12.3); Monocytes Absolute Auto 0.5 X10*3/uL (0.1-1.2); Monocytes Percent Auto 6.7 % (2-11); Neutrophils Absolute Auto 3.9 x10*3/uL (2.0-8.3); Neutrophils Percent Auto 55.7 % (45-73); Platelet Count 315 X10*3/uL (160-400); Red Blood Count 4.18 X10*6/uL (4.20-5.50)
--- NOTE | 2023-02-27 22:21 | PC.NURSE ---
Pt presenting to ER with ches pain beginning t 2029. Pt also reported [place] in [place] supermarket around 11 AM this morning. Pt was dizzy and passed out, friend stated this is not the first time this has happened. EMS noted high BP, administered 324 of aspirin and 1 of nitro with improvements in BP. BP came back up on arrival at ER. Pt also complaining of some pain in her leg and shoulder from the fall. Pt is A&Ox4, GCS 15, with cool, dry skin. Pt is romansh speaking only. Denies SOB, NVD, or radiation of the chast pain.
[2023-02-27 22:24] LABS: Anion Gap 15 (12-20); Blood Urea Nitrogen 18 mg/dL (9-16); Calcium 9.8 mg/dL (8.4-10.2); Carbon Dioxide 30 mmol/L (22-29); Chloride 101 mmol/L (96-108); Creatinine Clr Calc Pharmacy 57.7; Estimated Glomerular Filt Rate > 60; Glucose Random 148 mg/dL (60-115); Potassium 2.8 mmol/L (3.3-5.1); Sodium 143 mmol/L (135-145)
[2023-02-27 22:31] LABS: Troponin-I High Sensitivity 10.2 ng/L (<3.5-17.0)
[2023-02-28] VITALS: BP 197/111; PULSE 48; RESP 15; O2SAT 98
[2023-02-28] MEDS: Potassium Chloride Packet 20 MEQ PACKET 40 MEQ PO (00:36)
[2023-02-28] MEDS: Potassium Chloride/H20 10 MEQ/100 ML PIGGYBACK 100 MEQ IV (00:36)
[2023-02-28 00:44] LABS: Magnesium 1.7 mg/dL (1.6-2.6)
--- NOTE | 2023-02-28 00:58 | PC.NURSE ---
Pt complaining of IV site burning. It was explainined that potassium can burn but pain became unbearable. IV was stopped and MD was made aware. MD suggested to slow IV down and/or dilute with saline.
--- NOTE | 2023-02-28 01:04 | PC.NURSE ---
Noted some abdominal distension and firmness in the upper right quadrant. aware.
[2023-02-28 01:09] LABS: Troponin-I High Sensitivity 10.7 ng/L (<3.5-17.0)
--- NOTE | 2023-02-28 01:21 | ED_ITS ---
HPI - Chest Pain General Chief Complaint: Chest Pain Stated Complaint: CP with hypertension Time Seen by Provider: 02/27/23 21:47 Source: patient and family Mode of arrival: EMS Limitations: no limitations History of Present Illness HPI narrative: Patient 77 years old with history of coronary artery disease with ca rdiomyopathy, hypertension asthma GERD hypercholesterolemia and general anxiety came here for mid chest pain started 2 hours prior to arrival pressure feeling was given nitroglycerin by EMS and improved in pain. Denies any shortness of breath no cough apparently patient earlier today had a dizzy spell and fell which has happened many times in the past no fever no chills no cough Related Data Home Medications Medication Instructions Recorded Confirmed lisinopril 40 mg tablet 40 mg PO DAILY 01/21/23 01/21/23 Previous Rx's Medication Instructions Recorded alprazolam 0.25 mg tablet 0.125 mg PO TID PRN anxiety #20 09/12/20 tabs meloxicam 7.5 mg tablet 7.5 mg PO DAILY #30 tabs 02/05/21 aspirin 81 mg tablet,delayed 81 mg PO DAILY #90 tabs 07/17/21 release (Adult Low Dose Aspirin) compr.stocking,thigh,reg,large #2 ea 11/22/21 omeprazole 20 mg capsule,delayed 20 mg PO DAILY #90 caps 07/10/22 release cholecalciferol (vitamin D3) 50 50 mcg PO DAILY 90 days #90 caps 09/03/22 mcg (2,000 unit) capsule rosuvastatin 40 mg tablet 40 mg PO DAILY #90 tabs 09/03/22 amlodipine 10 mg tablet 10 mg PO DAILY #90 tabs 09/11/22 bisoprolol fumarate 10 mg tablet 20 mg PO DAILY 90 days #180 tabs 09/11/22 spironolactone 25 1 tab PO DAILY #30 tabs 12/07/22 mg-hydrochlorothiazide 25 mg tablet (Aldactazide) AIR PURIFIER #1 ea 01/21/23 potassium chloride 10 mEq 10 meq PO DAILY #20 tabs 02/28/23 tablet,extended release(part/cryst) Allergies Allergy/AdvReac Type Severity Reaction Status Date / Time Penicillins Allergy Severe DIFFICULTY Verified 01/21/23 09:25 BREATHING atorvastatin [From Lipitor] Allergy Unknown Unknown Verified 01/21/23 09:25 FRUITS Allergy Intermediate ITCHY Uncoded 01/21/23 09:25 THROAT, HOARSE VOICE SOMETIMES SOB Review of Systems Review of Systems: Yes all other systems are reviewed and are negative [facility] Past Medical History Medical History Age-related osteoporosis without current pathological fracture Anxiety Asthma Bile salt-induced diarrhea Cardiomyopathy Coronary artery disease COVID-19 vaccine series completed GERD (gastroesophageal reflux disease) Hypercholesterolemia Hypertension Ischemic colitis Mitral regurgitation Obesity (BMI 30-39.9) Uncontrolled hypertension Vaginal vault prolapse Surgical History History of cholecystectomy History of neck surgery History of thumb surgery History of tubal ligation Family History Family History Father Cancer Mother Cancer Social History [facility] Alcohol intake: never Patient Tobacco Use Status: Never used Tobacco Smoked in Last 30 Days: No e-Cigarette/Vaping Use: Never Used Second Hand Smoke Exposure: No Use of substances other than those prescribed or required for medical reasons: No Advance Directives: No Advance Directives Information Provided: No service: No Current occupational status: disabled Cognitive needs: No Hearing needs: No Vision needs: Yes Physical Exam Vital Signs: Vital Signs: Last Vital Signs Temp 98.5 F 02/27/23 21:52 Pulse 48 L 02/28/23 00:00 Resp 15 02/28/23 00:00 BP 197/111 H 02/28/23 00:00 Pulse Ox 98 02/28/23 00:00 O2 Del Method Room Air 02/28/23 00:00 BMI result Body Mass Index 35.7 Appearance: Alert. Oriented X3. No acute distress. Eyes: No pallor ENT: Pharynx normal. Oral Mucosa moist Neck: Normal inspection. Neck supple. CVS: Normal heart rate and rhythm. Pulses normal. Respiratory: No respiratory distress. Equal air entry bilateral, no wheezing/rales/rhonchi Abdomen: Soft and nontender. Bowel sounds are present, no mass palpable, no CVA tenderness Skin: Skin warm and dry. Normal skin color. Normal skin turgor. Extremities: No lower extremity edema. No calf tenderness Neuro: Oriented X 3. No motor deficit. No sensory deficit.No cerebellar signs , cranial nerves II-XII intact Medications Administered Generic Name Dose Route Start Last Admin Trade Name Freq PRN Reason Stop Dose Admin Potassium Chloride 10 meq in 100 mls @ 100 mls/hr 02/28/23 00:30 02/28/23 01:47 Potassium Chloride/H20 IV 02/28/23 02:29 Not Given Q1H EMMIE Discontinued Medications Generic Name Dose Route Start Last Admin Trade Name Freq PRN Reason Stop Dose Admin Potassium Chloride 40 meq 02/28/23 00:20 02/28/23 00:36 Potassium Chloride Packet 20 Meq Packet PO 02/28/23 00:21 40 meq ONCE ONE Administration Medical Decision Making Medical Decision Making [facility] Narrative: Patient with chest pain with no acute ischemic changes 2 sets of cardiac enzymes negative. Incidentally noticed to have low potassium 2.8 patient is on diuretics moved contributing to hyperkalemia patient's baseline potassium is 3.5 will give p.o. potassium and IV potassium and recheck potassium level, no chest pain after arrival in the ER Differential Diagnosis Differential Diagnoses: The differential diagnosis associated with the pre sentation includes ACS/anxiety/non-STEMI/STEMI Lab Data [facility] Lab Attestation statement: I reviewed the patient's lab results. 02/27/23 21:59 02/27/23 21:59 Labs: Lab Results 02/27/23 02/27/23 02/27/23 Range/Units 21:59 21:59 21:59 WBC 7.0 (4.8-10.8) X10*3/uL RBC 4.18 L (4.20-5.50) X10*6/uL Hgb 12.8 (12.0-16.0) g/dl Hct 37.6 (37.0-47.0) % MCV 90.0 (80.0-98.0) fL MCH 30.6 (27.0-33.0) pg MCHC 34.0 (31.0-35.0) g/dl RDW 13.0 (11.0-16.0) % Plt Count 315 (160-400) X10*3/uL MPV 9.7 (9.4-12.3) fL Immature Gran % (Auto) 0.3 (0.0-0.4) % Neut % (Auto) 55.7 (45-73) % Lymph % (Auto) 36.0 (20-40) % Price % (Auto) 6.7 (2-11) % Eos % (Auto) 0.7 (0-4) % Baso % (Auto) 0.6 (0-2) % Lymph # (Auto) 2.5 (1.2-4.9) X10*3/uL Price # (Auto) 0.5 (0.1-1.2) X10*3/uL Eos # (Auto) 0.1 (0.0-0.4) X10*3/uL Baso # (Auto) 0.0 (0.0-0.2) X10*3/uL Abs Immat Gran (auto) 0.02 (0.00-0.03) X10*3/uL Absolute Neuts (auto) 3.9 (2.0-8.3) x10*3/uL Absolute Nucleated RBC 0.000 (0.0-0.012) X10*3/uL Nucleated RBC % (auto) 0.0 (0.0-0.2) /100WBC Sodium 143 (135-145) mmol/L Potassium 2.8 L (3.3-5.1) mmol/L Chloride 101 (96-108) mmol/L Carbon Dioxide 30 H (22-29) mmol/L Anion Gap 15 (12-20) BUN 18 H (9-16) mg/dL Creatinine 0.87 (0.5-1.4) mg/dL Estim Creat Clear Calc 57.7 Estimated GFR > 60 Random Glucose 148 H (60-115) mg/dL Calcium 9.8 D (8.4-10.2) mg/dL Magnesium 1.7 (1.6-2.6) mg/dL Troponin I High Sens 10.2 (<3.5-17.0) ng/L 02/28/23 Range/Units 00:40 WBC (4.8-10.8) X10*3/uL RBC (4.20-5.50) X10*6/uL Hgb (12.0-16.0) g/dl Hct (37.0-47.0) % MCV (80.0-98.0) fL MCH (27.0-33.0) pg MCHC (31.0-35.0) g/dl RDW (11.0-16.0) % Plt Count (160-400) X10*3/uL MPV (9.4-12.3) fL Immature Gran % (Auto) (0.0-0.4) % Neut % (Auto) (45-73) % Lymph % (Auto) (20-40) % Price % (Auto) (2-11) % Eos % (Auto) (0-4) % Baso % (Auto) (0-2) % Lymph # (Auto) (1.2-4.9) X10*3/uL Price # (Auto) (0.1-1.2) X10*3/uL Eos # (Auto) (0.0-0.4) X10*3/uL Baso # (Auto) (0.0-0.2) X10*3/uL Abs Immat Gran (auto) (0.00-0.03) X10*3/uL Absolute Neuts (auto) (2.0-8.3) x10*3/uL Absolute Nucleated RBC (0.0-0.012) X10*3/uL Nucleated RBC % (auto) (0.0-0.2) /100WBC Sodium (135-145) mmol/L Potassium (3.3-5.1) mmol/L Chloride (96-108) mmol/L Carbon Dioxide (22-29) mmol/L Anion Gap (12-20) BUN (9-16) mg/dL Creatinine (0.5-1.4) mg/dL Estim Creat Clear Calc Estimated GFR Random Glucose (60-115) mg/dL Calcium (8.4-10.2) mg/dL Magnesium (1.6-2.6) mg/dL Troponin I High Sens 10.7 (<3.5-17.0) ng/L Independent Interpretation I performed an independent interpretation of an: EKG Interpretation: normal sinus rhythm heart rate 63, left axis deviation LVH no acute ST changes no acute ischemia Discharge Plan Discharge Clinical Impression: Chest pain, Acute hypokalemia Patient Disposition: Still a Patient Instructions: Chest Pain (ED), Hypokalemia (ED) Additional Instructions: Continue medications and follow with PCP for further evaluation Potassium tablet daily for low potassium Report to ER if worsening of the chest pain Prescriptions: New potassium chloride 10 mEq tablet,ER particles/crystals 10 meq PO DAILY Qty: 20 0RF No Action alprazolam 0.25 mg tablet 0.125 mg PO TID PRN (Reason: anxiety) Qty: 20 0RF meloxicam 7.5 mg tablet 7.5 mg PO DAILY Qty: 30 0RF aspirin [Adult Low Dose Aspirin] 81 mg tablet,delayed release (DR/EC) 81 mg PO DAILY Qty: 90 3RF omeprazole 20 mg capsule,delayed release(DR/EC) 20 mg PO DAILY Qty: 90 2RF amlodipine 10 mg tablet 10 mg PO DAILY Qty: 90 2RF bisoprolol fumarate 10 mg tablet 20 mg PO DAILY 90 Days Qty: 180 2RF (DME) compr.stocking,thigh,reg,large Misc See Rx Instructions .Route Qty: 2 0RF Rx Instructions: As directed 20-30 mm HG cholecalciferol (vitamin D3) 50 mcg (2,000 unit) capsule 50 mcg PO DAILY 90 Days Qty: 90 3RF rosuvastatin 40 mg tablet 40 mg PO DAILY Qty: 90 2RF spironolacton-hydrochlorothiaz [Aldactazide] 25-25 mg tablet 1 tab PO DAILY Qty: 30 0RF Rx Instructions: Nephrology lisinopril 40 mg tablet 40 mg PO DAILY (DME) AIR PURIFIER See Rx Instructions .Route .MEDSUPPLY Qty: 1 0RF Rx Instructions: As directed
--- NOTE | 2023-02-28 02:33 | PC.NURSE ---
MECHANICAL DESIGNER called and stated she will pick pt up upon discharge. [phone] Ada - MECHANICAL DESIGNER
[2023-02-28 03:02] LABS: Anion Gap 12 (12-20); Blood Urea Nitrogen 15 mg/dL (9-16); Calcium 9.5 mg/dL (8.4-10.2); Carbon Dioxide 29 mmol/L (22-29); Chloride 105 mmol/L (96-108); Creatinine Clr Calc Pharmacy 65.2; Estimated Glomerular Filt Rate > 60; Glucose Random 107 mg/dL (60-115); Potassium 3.9 mmol/L (3.3-5.1); Sodium 142 mmol/L (135-145)
== END 2023-02-28 03:22 | disposition home or self-care (01) ==
PROVIDERS: Emergency Provider Internal Medicine
DX: R07.9 Chest pain, unspecified (principal); E87.6 Hypokalemia; R42 Dizziness and giddiness; I10 Essential (primary) hypertension; E78.00 Pure hypercholesterolemia, unspecified; Z79.82 Long term (current) use of aspirin; Z79.899 Other long term (current) drug therapy; Z79.02 Long term (current) use of antithrombotics/antiplatelets
CPT/HCPCS: 36415; 80048; 83735; 84484; 85025; 93005; 96365; 99285

== ENCOUNTER 2023-03-18 09:55 | Outpatient (REF) | payer OTHER, SELFPAY ==
[2023-03-18 10:14] LABS: MANUAL DIFF FLAG NO
[2023-03-18 10:42] LABS: Basophils Percent Auto 0.5 % (0-2); Eosinophils Absolute Auto 0.1 X10*3/uL (0.0-0.4); Eosinophils Percent Auto 1.2 % (0-4); Hematocrit 37.7 % (37.0-47.0); Hemoglobin 12.4 g/dl (12.0-16.0); Imm Gran Abs Auto 0.02 X10*3/uL (0.00-0.03); Imm Gran Pct Auto 0.4 % (0.0-0.4); Lymphocytes Absolute Auto 1.7 X10*3/uL (1.2-4.9); Lymphocytes Percent Auto 29.6 % (20-40); Mean Corpuscular HGB Conc 32.9 g/dl (31.0-35.0); Mean Corpuscular Hemoglobin 30.3 pg (27.0-33.0); Mean Corpuscular Volume 92.2 fL (80.0-98.0); Mean Platelet Volume 9.7 fL (9.4-12.3); Monocytes Absolute Auto 0.4 X10*3/uL (0.1-1.2); Monocytes Percent Auto 6.6 % (2-11); Neutrophils Absolute Auto 3.5 x10*3/uL (2.0-8.3); Neutrophils Percent Auto 61.7 % (45-73); Platelet Count 287 X10*3/uL (160-400); Red Blood Count 4.09 X10*6/uL (4.20-5.50); Red Cell Distribution Width 12.7 % (11.0-16.0); White Blood Count 5.6 X10*3/uL (4.8-10.8)
[2023-03-18 11:05] LABS: B Type Natriuretic Peptide 342 pg/mL (<100)
[2023-03-18 11:45] LABS: Alanine Aminotransferase 12 U/L (0-31); Albumin Level 3.8 g/dL (3.5-5.0); Alkaline Phosphatase 81 U/L (39-117); Anion Gap 10 (12-20); Aspartate Amino Transferase 26 U/L (5-31); Bilirubin Total 0.4 mg/dL (0.0-1.0); Blood Urea Nitrogen 10 mg/dL (9-16); Calcium 9.5 mg/dL (8.4-10.2); Carbon Dioxide 31 mmol/L (22-29); Chloride 105 mmol/L (96-108); Cholesterol 162 mg/dL; Estimated Glomerular Filt Rate > 60; Glucose Random 93 mg/dL (60-115); HDL Cholesterol 42 mg/dL; LDL Cholesterol Calculated 99 mg/dl; Potassium 4.4 mmol/L (3.3-5.1); Sodium 142 mmol/L (135-145); Total Protein 6.8 g/dL (6.5-8.0); Triglycerides 106 mg/dL
[2023-03-18 12:15] LABS: Folate 9.6 ng/mL (> or = 4.0); Free T4 (Free Thyroxine) 0.91 ng/dL (0.71-1.85); Thyroid Stimulating Hormone 1.08 uIU/mL (0.32-4.0); Vitamin B12 782 pg/mL (200-900); Vitamin D 25-OH Total 14.4 ng/mL (>30)
== END 2023-03-18 09:56 | disposition home or self-care (01) ==
LOC: HO.LAB 09:55
PROVIDERS: PCP Internal Medicine; Visit Provider Internal Medicine
DX: I51.81 Takotsubo syndrome (principal); E78.00 Pure hypercholesterolemia, unspecified; E55.9 Vitamin D deficiency, unspecified
CPT/HCPCS: 36415; 80053; 80061; 82306; 82607; 82746; 83880; 84439; 84443; 85025

== ENCOUNTER 2023-09-24 14:48 | Outpatient (AMB) | payer OTHER, SELFPAY ==
[2023-09-24 14:51] VITALS: BP 190/90; PULSE 77; O2SAT 98; BMI 35.7
--- NOTE | 2023-09-24 14:51 | A.OFFPC_ITS ---
Vital Signs 09/24/23 14:51 09/24/23 15:19 Height 5 ft 1 in Weight 189 lb 0.2 oz BMI 35.7 BP 190/90 H 182/82 H Blood Pressure Location Lt brachial Lt brachial Position Sitting Sitting Pulse 77 Pulse Source Pulse Oximeter Pulse Oximetry (%) 98 Oxygen Delivery Method Room Air Intake Visit Reasons: PE Intake Note: Patient is here today for a physical. Retail General Manager Required: No Accompanied by: Daughter Allergies Penicillins Allergy (Severe, Verified 09/24/23 15:01) DIFFICULTY BREATHING atorvastatin [From Lipitor] Allergy (Unknown, Verified 09/24/23 15:01) Unknown FRUITS Allergy (Intermediate, Uncoded 09/24/23 15:01) ITCHY THROAT, HOARSE VOICE SOMETIMES SOB Medication List - Last Reconciled 09/24/23 by LEANDRO Sanchez [AIR PURIFIER As directed] albuterol sulfate 90 mcg/actuation (Ventolin HFA) 2 puffs inhalation Q6H PRN alprazolam 0.125 mg (1/2 x 0.25 mg) PO TID PRN aspirin (Adult Low Dose Aspirin) 81 mg PO DAILY bisoprolol fumarate 20 mg (2 x 10 mg) PO DAILY 90 days cholecalciferol (vitamin D3) 50 mcg PO DAILY 90 days compr.stocking,thigh,reg,large As directed 20-30 mm HG lisinopril 40 mg PO DAILY omeprazole 20 mg PO DAILY potassium chloride ER 10 mEq PO DAILY rosuvastatin 40 mg PO DAILY sertraline 25 mg PO DAILY spironolacton-hydrochlorothiaz 25-25 mg (Aldactazide) 1 tab PO DAILY Tobacco use date assessed: 09/24/23 Fall risk assessment: No Falls in past year Last assessed Fall Risk: 09/24/23 Dental Screening Dental Screen Date: 09/24/23 Did you have a dental visit in the last 12 months?: No Did you have a dental problem in the last 6 months where you did not have access to dental care?: No HPI PE HPI Details Patient is a 78-year-old female who presents today for physical exam. Patient of Dr. Eden, last visit 02/2023. Medical history significant for CAD, asthma, obesity, cardiomyopathy, GERD, hypercholesterolemia, anxiety, resistant hypertension-was seen by Nephrology in the past-needs new referral, hypokalemia. Patient reports that at the last office visit she was started on nifedipine for blood pressure although she stopped taking medication due to side effect of burning tongue. She only has been taking bisoprolol. She also stopped taking lisinopril and spironolactone-hydrochlorothiazide as she was told to stop these medications when on nifedipine per patient. She reports systolic blood pressures ranging between 160 and 135. Patient has an upcoming mammogram next month. Bone density screen normal 09/2022. Patient reports normal colonoscopy in 2016 at [facility]. Patient reports eye exam today. She reports left shoulder pain for the past couple months after moving furniture, denies falling, took Tylenol with some improvement. No shortness of breath or chest pain. Patient is a [place]-speaking and her CONSUMER AFFAIRS MANAGER Ada was helping with interpretation. [facility] Medical History Hypokalemia Age-related osteoporosis without current pathological fracture Uncontrolled hypertension COVID-19 vaccine series completed Mitral regurgitation Hypertension Hypercholesterolemia Ischemic colitis Bile salt-induced diarrhea GERD (gastroesophageal reflux disease) Vaginal vault prolapse Anxiety Cardiomyopathy Obesity (BMI 30-39.9) Asthma Coronary artery disease Surgical History History of neck surgery History of thumb surgery History of tubal ligation History of cholecystectomy Family History Father Cancer Mother Cancer Social History Housing: Condominium Alcohol intake: never Patient Tobacco Use Status: Never used Tobacco e-Cigarette/Vaping Use: Never Used Second Hand Smoke Exposure: No service: No Current occupational status: disabled Cognitive needs: No Hearing needs: No Vision needs: Yes Questionnaire Thrive Questionnaire Date Thrive assessed: 12/07/22 AUDIT C Alcohol Use Questionnaire (AUDIT-C) 1. How often do you have a drink containing alcohol?: Never 2. How many drinks containing alcohol do you have on a typical day when you are drinking?: 1 or 2 (0) 3. How often do you have six or more drinks on one occasion?: Never Total Score: 0 Score Reviewed/Action Taken: No JERALD-7 AMB Questionnaire JERALD-7 Date JERALD - 7 assessed: 09/24/23 Feeling nervous, anxious, or on edge: 0 = Not at all Not being able to stop or control worryin = Not at all Worrying too much about different things: 0 = Not at all Trouble relaxin = Not at all Being so restless that it is hard to sit still: 0 = Not at all Becoming easily annoyed or irritable: 0 = Not at all Feeling afraid as if something awful might happen: 0 = Not at all Total JERALD-7 score (0-4 normal; 5-9 mild; 10-14 moderate; 15-21 severe): 0 Source: Developed by Drs. Caleb Xiao, Donna Torres, Antony Tovar and colleagues, with an educational pao from [employer]. JERALD-7 Assessment Billing JERALD-7 Assessment Tool: JERALD-7 Assessment [id number] Review of Systems Const Denies body aches, Denies chills, Denies fever(s) and Denies headache(s) Eyes Denies change in vision ENT Denies dizziness, Denies otalgia, Denies headache(s), Denies nasal discharge, Denies sinus pain and Denies sore throat Card Denies chest pain, Denies edema, Denies lightheadedness and Denies dyspnea Resp Denies cough, Denies dyspnea and Denies wheezing GI Denies constipation, Denies diarrhea, Denies nausea and Denies vomiting Denies dysuria Musc Denies myalgias and Reports arthralgias Skin/Breast Denies rash Neuro Denies dizziness and Denies headache(s) Aller/Immun Denies wheezing Physical exam (Primary Care) Vital Signs: Last Vital Signs Pulse 77 09/24/23 14:51 BP 182/82 H 09/24/23 15:19 Pulse Ox 98 09/24/23 14:51 Oxygen Delivery Method Room Air 09/24/23 14:51 BMI result Body Mass Index 35.7 Tobacco/Smoking Status: Tobacco use Status Tobacco use date assessed 09/24/23 09/24/23 14:52 Patient Tobacco Use Status Never used Tobacco 09/24/23 14:52 e-Cigarette/Vaping Use Never Used 09/24/23 14:52 Thrive Assessment: Date of Thrive Assessment Date Thrive assessed 12/07/22 09/24/23 14:52 Const General: cooperative and no acute distress Orientation/consciousness: patient oriented x3 HENMT Head: Yes normocephalic and Yes atraumatic Ears: TM's normal bilaterally Face and sinus: Yes sinuses nontender Mouth: oropharynx normal and moist mucous membranes Throat: Yes posterior oropharynx normal Eyes General: appearance normal, both eyes and all related structures Neck Neck: Yes normal visual inspection, Yes full ROM and Yes no lymphadenopathy Thyroid: Thyroid normal Resp Effort & Inspection: normal respiratory effort and able to speak in complete sentences Auscultation: clear to auscultation bilaterally, no crackles, no rales, no rhonchi and no wheezes Cardio Rate: regular rate Rhythm: regular rhythm Heart sounds: S1 normal heart sound present, S2 normal heart sound present and no murmurs GI Palpation (GI): Soft to palpation, not firm, nontender, no guarding, not rigid and no hepatosplenomegaly Auscultation: normal bowel sounds General: No CVA tenderness Back/Spine/Pelvis Back: No CVA tenderness Skin General skin exam: no rashes or lesions noted Neuro General: patient oriented x3 Gait exam (Neuro): Normal gait present Extrem General: Yes full ROM and No edema Left upper extremity: shoulder/upper arm Details: inspection abnormal, tenderness (Anterior shoulder) and abnormal ROM (Mild pain with range of motion); no swelling, no ecchymosis, no crepitus and no unsual warmth Office Procedures Flu Questionnaire Does the patient have a severe egg allergy?: No Does the patient have severe life threatening allergies?: No Does the patient have a fever or illness today?: No Has the patient ever had Guillain-[place] Syndrome?: No Has the patient ever had any past reaction to a flu shot?: No Immunizations flu vacc [id number] 6mos up(PF) 60 mcg(15 mcgx4)/0.5 mL IM syringe Performing Provider: LEANDRO Sanchez [place] [facility] [place] [place] [facility] Administered by: RACHEL Lozano on 09/24/23 15:29 Dose Route Admin Location Dispensed Lot Number Expiration Date NDC Supervisor [employer] Oper[employer] 0.5 mL IM Left Deltoid 0.5 mL [id number] 04/26/24 [id number] [employer] VIS Given Date VIS Provided VIS Publication Date 09/24/23 Single Vaccine 21 Eligibility Eligibility Date Funding Source Not VFC Eligible 09/24/23 Private Assessment and Plan Assessment & Plan (1) Left shoulder pain: Code(s): M25.512 - Pain in left shoulder Plan: Suspect musculoskeletal in origin Patient is to continue [id number] Tylenol 650 mg every 6 hours as needed Provided with lidocaine patch Patient would like to hold off on PT referral at this time (2) Resistant hypertension: Code(s): I10 - Essential (primary) hypertension Plan: Goal BP equal or less than 140/90 Blood pressure is high in the office, blood pressure is elevated at home as well Will refer back to Nephrology Patient stopped taking nifedipine due to side effect - see HPI for details Patient is to continue bisoprolol, will restart lisinopril and spironolactone- hydrochlorothiazide Continue to monitor blood pressures daily at home Notify office if blood pressure is still high at home in about 1-2 weeks Signs and symptoms reviewed when to notify provider or go to the emergency department Low-sodium diet (3) Generalized anxiety disorder: Code(s): F41.1 - Generalized anxiety disorder Plan: Stable with sertraline and Xanax p.r.n. (4) Hypercholesterolemia: Code(s): E78.00 - Pure hypercholesterolemia, unspecified Plan: Continue rosuvastatin Low-cholesterol diet (5) Obesity (BMI 30-39.9): Code(s): E66.9 - Obesity, unspecified Plan: Healthy food choices and exercise as tolerated (6) Asthma: Code(s): J45.909 - Unspecified asthma, uncomplicated Qualifiers: Asthma severity: mild Asthma persistence: intermittent Asthma complication type: uncomplicated Qualified Code(s): J45.20 - Mild intermittent asthma, uncomplicated Plan: Stable Continue albuterol inhaler p.r.n. (7) Adult general medical exam: Code(s): Z00.00 - Encounter for general adult medical examination without abnormal findings Plan Follow-up in 3 months or sooner as needed Orders: Orders Influenza [id number] Immunization Today Z23 - Encounter for immunization Comprehensive [place]. Panel Fast Today I10 - Essential (primary) hypertension Lipid Panel Today E78.00 - Pure hypercholesterolemia, unspecified Referrals Nephrology Referral I10 - Essential (primary) hypertension Medications: New lisinopril 40 mg PO DAILY 90 tabs 0RF I10 - Essential (primary) hypertension lidocaine 4% (Aspercreme (lidocaine)) 1 patch topical DAILY PRN 30 ea 0RF pain M25.512 - Pain in left shoulder Changed From spironolacton-hydrochlorothiaz 25-25 mg (Aldactazide) Nephrology 1 tab PO DAILY 30 tabs 0RF E78.00 - Pure hypercholesterolemia, unspecified To spironolacton-hydrochlorothiaz 25-25 mg Nephrology 1 tab PO DAILY 90 tabs 0RF E78.00 - Pure hypercholesterolemia, unspecified Coding Level of Care Code Est Pt Prev Care >65y(24328) Diagnoses Left shoulder pain M25.512 Resistant hypertension I10 Generalized anxiety disorder F41.1 Hypercholesterolemia E78.00 Obesity (BMI 30-39.9) E66.9 Mild intermittent asthma without complication J45.20 Asthma severity: mild Asthma persistence: intermittent Asthma complication type: uncomplicated Adult general medical exam Z00.00 Additional Codes JERALD-7 Assessment Billing - JERALD-7 Assessment Tool: JERALD-7 Assessment [id number] ([id number])
[2023-09-24 15:19] VITALS: BP 182/82
== END 2023-09-24 15:34 | disposition home or self-care (01) ==
PROVIDERS: PCP Internal Medicine; Visit Provider Nurse Practitioner Family
DX: Z00.00 Encounter for general adult medical examination without abnormal findings (principal); M25.512 Pain in left shoulder; I10 Essential (primary) hypertension; Z23 Encounter for immunization; F41.1 Generalized anxiety disorder; E78.00 Pure hypercholesterolemia, unspecified; E66.9 Obesity, unspecified; J45.20 Mild intermittent asthma, uncomplicated
CPT/HCPCS: 90471; 90686; 99397

== ENCOUNTER 2023-10-01 14:34 | Outpatient (REF) | payer OTHER, SELFPAY ==
[2023-10-01 15:53] LABS: Alanine Aminotransferase 11 U/L (0-31); Alkaline Phosphatase 94 U/L (39-117); Anion Gap 15 (12-20); Aspartate Amino Transferase 23 U/L (5-31); Bilirubin Total 0.3 mg/dL (0.0-1.0); Blood Urea Nitrogen 8 mg/dL (9-16); Calcium 9.6 mg/dL (8.4-10.2); Carbon Dioxide 26 mmol/L (22-29); Chloride 105 mmol/L (96-108); Cholesterol 191 mg/dL (<200); Estimated Glomerular Filt Rate > 60; Glucose Fasting 94 mg/dL (60-99); HDL Cholesterol 42 mg/dL (>40); LDL Cholesterol Calculated 123 mg/dL (<100); Potassium 3.5 mmol/L (3.3-5.1); Sodium 142 mmol/L (135-145); Total Protein 7.5 g/dL (6.5-8.0); Triglycerides 134 mg/dL (<150)
[2023-10-01 15:54] LABS: Creatinine Urine 199.52 mg/dL; Total Protein Urine Random 30 mg/dL (<12)
[2023-10-08 14:19] LABS: Renin 0.16 ng/mL/h (0.25-5.82)
== END 2023-10-01 14:35 | disposition home or self-care (01) ==
LOC: HO.LAB 14:34
PROVIDERS: PCP Internal Medicine; Visit Provider Internal Medicine Hypertension Specialist
DX: E87.6 Hypokalemia (principal); E78.00 Pure hypercholesterolemia, unspecified; I10 Essential (primary) hypertension
CPT/HCPCS: 36415; 80053; 80061; 82088; 82570; 84156; 84244; 99202

== ENCOUNTER 2023-10-01 14:34 | Outpatient (AMB) | payer OTHER, SELFPAY ==
[2023-10-01 14:35] VITALS: BP 150/92; PULSE 76; O2SAT 98; BMI 36.3
--- NOTE | 2023-10-01 14:35 | HO.NEPHOV ---
HPI HPI Comments History of Present Illness Details 78-year-old woman with a history of resistant hypertension with hypokalemia. Previously she was seen a year ago. Subsequently lost to follow-up. Currently she is accompanied by her APPAREL SALES LEADER. Her blood pressure has been elevated and she has had episodes of hypokalemia. Currently she is on lisinopril along with potassium supplementation and Aldactazide. Today she denies any new complaints no nausea vomiting no polyuria polydipsia no edema. [facility] Medical History Hypokalemia Age-related osteoporosis without current pathological fracture Uncontrolled hypertension COVID-19 vaccine series completed Mitral regurgitation Hypertension Hypercholesterolemia Ischemic colitis Bile salt-induced diarrhea GERD (gastroesophageal reflux disease) Vaginal vault prolapse Anxiety Cardiomyopathy Obesity (BMI 30-39.9) Asthma Coronary artery disease Surgical History History of neck surgery History of thumb surgery History of tubal ligation History of cholecystectomy Family History Father Cancer Mother Cancer Social History Housing: Condominium Alcohol intake: never Patient Tobacco Use Status: Never used Tobacco e-Cigarette/Vaping Use: Never Used Second Hand Smoke Exposure: No service: No Current occupational status: disabled Cognitive needs: No Hearing needs: No Vision needs: Yes Vital Signs 10/01/23 14:35 Height 5 ft 1 in Weight 192 lb 4 oz BMI 36.3 BP 150/92 H Blood Pressure Location Lt brachial Position Sitting Pulse 76 Pulse Source Pulse Oximeter Pulse Oximetry (%) 98 Oxygen Delivery Method Room Air Physical Exam Vital Signs: Last Vital Signs Pulse 76 10/01/23 14:35 BP 150/92 H 10/01/23 14:35 Pulse Ox 98 10/01/23 14:35 Oxygen Delivery Method Room Air 10/01/23 14:35 BMI result Body Mass Index 36.3 Const General: comfortable; No acute distress Orientation/consciousness: patient oriented x3 Eyes General: appearance normal, both eyes and all related structures Visual Noriega: normal visual noriega by confrontation Neck Neck: Yes supple and Yes no JVD Resp Effort & Inspection: normal respiratory effort and respiratory effort not decreased Auscultation: rhonchi Cardio Palpation: no palpable S3 and no palpable S4 Heart sounds: no rubs GI Inspection: Yes normal to inspection Palpation (GI): Soft to palpation Percussion: Yes normal to percussion Auscultation: normal bowel sounds General: Yes no CVA tenderness Back/Spine/Pelvis Back: no CVA tenderness Skin General skin exam: no petechiae and no purpura Neuro General: patient oriented x3 and no focal motor deficits Extrem General: No clubbing and No edema Assessment & Plan Assessment & Plan (1) Resistant hypertension: Code(s): I10 - Essential (primary) hypertension (2) Hypokalemia: Code(s): E87.6 - Hypokalemia Plan Elderly woman with resistant hypertension and hypokalemia. In the past she did have mild alkalosis. With the combination of alkalosis and hypokalemia , hyperaldosteronism needs to be ruled out. Unable to rule out a component of white coat effect. (Initial blood pressure was 150/80 however when I checked it blood pressure was 200/90 mmHg.) Workup as outlined below Obtain 24 hours ABPM Check serum aldosterone and plasma renin activity. Low salt diet Keep current meds May need to add a CCB if ABPM reveals sub optimal BP control Orders: Orders Blood Urea Nitrogen Today E87.6 - Hypokalemia, I10 - Essential (primary) hypertension Calcium Today E87.6 - Hypokalemia, I10 - Essential (primary) hypertension Creatinine Urine Today E87.6 - Hypokalemia, I10 - Essential (primary) hypertension Electrolytes Today E87.6 - Hypokalemia, I10 - Essential (primary) hypertension Creatinine Today E87.6 - Hypokalemia, I10 - Essential (primary) hypertension Total Protein Urine Random Today E87.6 - Hypokalemia, I10 - Essential (primary) hypertension Aldosterone Today E87.6 - Hypokalemia, I10 - Essential (primary) hypertension Renin Today E87.6 - Hypokalemia, I10 - Essential (primary) hypertension Coding Level of Care Code New Pt Level 4 (65812) Diagnoses Resistant hypertension I10 Hypokalemia E87.6 Results Reviewed Nephrology Results: Hgb 12.4 g/dl (12.0-16.0) 03/18/23 WBC 5.6 X10*3/uL (4.8-10.8) 03/18/23 Plt Count 287 X10*3/uL (160-400) 03/18/23 Sodium 142 mmol/L (135-145) 03/18/23 Potassium 4.4 mmol/L (3.3-5.1) 03/18/23 Chloride 105 mmol/L (96-108) 03/18/23 Carbon Dioxide 31 mmol/L (22-29) H 03/18/23 BUN 10 mg/dL (9-16) 03/18/23 Creatinine 0.79 mg/dL (0.5-1.4) 03/18/23 Calcium 9.5 mg/dL (8.4-10.2) 03/18/23 Renal US 12/31/22
== END 2023-10-01 14:53 | disposition home or self-care (01) ==
PROVIDERS: PCP Internal Medicine; Visit Provider Internal Medicine Hypertension Specialist
DX: I10 Essential (primary) hypertension (principal); E87.6 Hypokalemia
CPT/HCPCS: 99204

== ENCOUNTER 2023-10-03 09:44 | Outpatient (REF) | payer OTHER, SELFPAY ==
--- NOTE | ~2023-10-03 | MM_ITS ---
EXAMINATION: MM SCREENING DIGITAL BREAST TOMOSYNTHESIS, BILATERAL CLINICAL INFORMATION: Screening. Asymptomatic. COMPARISON: Mammography: 09/27/2022, 06/20/2021, 11/24/2019, 11/06/2018, 10/25/2017 TECHNIQUE: Digital breast tomosynthesis is performed in both the craniocaudal and mediolateral oblique views along with computer-aided detection (CAD). Synthesized 2D images are generated from the tomosynthesis. Additional right CC was provided with nipple in profile. FINDINGS: There are scattered areas of fibroglandular density (ACR BI-RADS breast composition Category b). There are a few scattered benign type calcifications in both breasts. There are no suspicious masses, suspicious grouped calcifications, or areas of architectural distortion in either breast. The parenchymal pattern is stable from prior exams. MM/MM tomosynthesis screening BI IMPRESSION: No mammographic evidence of malignancy. ASSESSMENT: BI-RADS BI-RADS 2 - Benign Findings RECOMMENDATION: Routine annual mammography screening. 1 year F/U This examination should not preclude the clinical evaluation of a suspicious palpable abnormality. This patient's information was entered into a reminder system with a target due date for their next mammogram.
== END 2023-10-03 09:45 | disposition home or self-care (01) ==
LOC: HO.MAMMO 09:44
PROVIDERS: Visit Provider Internal Medicine
DX: Z12.31 Encounter for screening mammogram for malignant neoplasm of breast (principal)
CPT/HCPCS: 77063; 77067

== ENCOUNTER → 2023-10-03 09:45 | Outpatient (BNV) | payer OTHER, SELFPAY | PROVIDERS: Visit Provider Radiology Diagnostic Radiology | DX: Z12.31 Encounter for screening mammogram for malignant neoplasm of breast (principal) | CPT/HCPCS: 77063; 77067 ==

== ENCOUNTER 2023-10-29 12:20 | Outpatient (AMB) | payer OTHER, SELFPAY ==
[2023-10-29 12:20] VITALS: BP 182/90; PULSE 61; O2SAT 92; BMI 35.0
--- NOTE | 2023-10-29 12:20 | HO.NEPHOV ---
HPI HPI Comments History of Present Illness Details 78-year-old woman with a history of resistant hypertension with hypokalemia. Previously she was seen a year ago. Subsequently lost to follow-up. Currently she is accompanied by her LINING CLEANER. Her blood pressure has been elevated and she has had episodes of hypokalemia. Currently she is on lisinopril along with potassium supplementation and Aldactazide. Today she denies any new complaints no nausea vomiting no polyuria polydipsia no edema. [facility] Medical History Hypokalemia Age-related osteoporosis without current pathological fracture Uncontrolled hypertension COVID-19 vaccine series completed Mitral regurgitation Hypertension Hypercholesterolemia Ischemic colitis Bile salt-induced diarrhea GERD (gastroesophageal reflux disease) Vaginal vault prolapse Anxiety Cardiomyopathy Obesity (BMI 30-39.9) Asthma Coronary artery disease Surgical History History of neck surgery History of thumb surgery History of tubal ligation History of cholecystectomy Family History Father Cancer Mother Cancer Social History Housing: Condominium Alcohol intake: never Patient Tobacco Use Status: Never used Tobacco e-Cigarette/Vaping Use: Never Used Second Hand Smoke Exposure: No service: No Current occupational status: disabled Cognitive needs: No Hearing needs: No Vision needs: Yes Vital Signs 10/29/23 12:20 Height 5 ft 1 in Weight 185 lb BMI 35.0 BP 182/90 H Blood Pressure Location Lt brachial Position Sitting Pulse 61 Pulse Source Pulse Oximeter Pulse Oximetry (%) 92 Oxygen Delivery Method Room Air Physical Exam Vital Signs: Last Vital Signs Pulse 61 10/29/23 12:20 BP 182/90 H 10/29/23 12:20 Pulse Ox 92 10/29/23 12:20 Oxygen Delivery Method Room Air 10/29/23 12:20 BMI result Body Mass Index 35.0 Const General: comfortable Nutritional Appearance: well nourished Orientation/consciousness: patient oriented x3 HEENT Head: No normal to inspection Mouth: moist mucous membranes Neck Neck: Yes supple and Yes no JVD Resp Auscultation: clear to auscultation bilaterally, no rales and rub present Cardio Jugular venous distension: no JVD Palpation: no palpable S3 and no palpable S4 Heart sounds: no rubs GI Palpation (GI): Soft to palpation and nontender Percussion: No Fluid wave present General: Yes no CVA tenderness Back/Spine/Pelvis Back: no CVA tenderness Skin General skin exam: no rashes or lesions noted Neuro General: patient oriented x3 Extrem General: Yes no pedal edema and No clubbing Assessment & Plan Assessment & Plan (1) Resistant hypertension: Code(s): I10 - Essential (primary) hypertension (2) Hypokalemia: Code(s): E87.6 - Hypokalemia Plan Elderly woman with resistant hypertension and hypokalemia. No significant alkalosis With the combination of alkalosis and hypokalemia , hyperaldosteronism is a possibility. However aldosterone level is low at 2 and PA/PRA ratio is 12.5 Unable to rule out a component of white coat effect. (Initial blood pressure was 150/80 however when I checked it blood pressure was 200/90 mmHg.) Obtain 24 hours ABPM Low salt diet Keep current meds Made changes as follows. Discontinue lisinopril and Aldactazide. Start Lotrel 5/20 one a day. Start spironolactone 25 mg b.i.d.. Recheck serum electrolytes in 3 weeks Orders: Orders Electrolytes 3 Weeks E87.6 - Hypokalemia, I10 - Essential (primary) hypertension Calcium 3 Weeks E87.6 - Hypokalemia, I10 - Essential (primary) hypertension Blood Urea Nitrogen 3 Weeks E87.6 - Hypokalemia, I10 - Essential (primary) hypertension Creatinine 3 Weeks E87.6 - Hypokalemia, I10 - Essential (primary) hypertension Medications: New spironolactone 25 mg PO BID 60 tabs 2RF amlodipine-benazepril 5-20 mg (Lotrel) 1 cap PO DAILY 30 caps 1RF Discontinued spironolacton-hydrochlorothiaz 25-25 mg Nephrology Discontinued Reason: Doctor's Order 1 tab PO DAILY 90 tabs 0RF E78.00 - Pure hypercholesterolemia, unspecified lisinopril Discontinued Reason: Doctor's Order 40 mg PO DAILY 90 tabs 0RF I10 - Essential (primary) hypertension Coding Level of Care Code Est Pt Level 4 (35980) Diagnoses Resistant hypertension I10 Hypokalemia E87.6 Results Reviewed Results Reviewed: 10/01/2023. Serum aldosterone to Plasma renin 0.16 Nephrology Results: Hgb 12.4 g/dl (12.0-16.0) 03/18/23 WBC 5.6 X10*3/uL (4.8-10.8) 03/18/23 Plt Count 287 X10*3/uL (160-400) 03/18/23 Sodium 142 mmol/L (135-145) 10/01/23 Potassium 3.5 mmol/L (3.3-5.1) 10/01/23 Chloride 105 mmol/L (96-108) 10/01/23 Carbon Dioxide 26 mmol/L (22-29) 10/01/23 BUN 8 mg/dL (9-16) L 10/01/23 Creatinine 0.75 mg/dL (0.5-1.4) 10/01/23 Calcium 9.6 mg/dL (8.4-10.2) 10/01/23 Urine Creatinine 199.52 mg/dL 10/01/23 Renal US 12/31/22
== END 2023-10-29 12:41 | disposition home or self-care (01) ==
PROVIDERS: PCP Internal Medicine; Visit Provider Internal Medicine Hypertension Specialist
DX: I10 Essential (primary) hypertension (principal); E87.6 Hypokalemia
CPT/HCPCS: 99214

== ENCOUNTER → 2023-10-29 12:20 | Outpatient (BNVA) | payer OTHER, SELFPAY | PROVIDERS: PCP Internal Medicine; Visit Provider Internal Medicine Hypertension Specialist | DX: I10 Essential (primary) hypertension (principal); E87.6 Hypokalemia | CPT/HCPCS: 99212 ==

== ENCOUNTER 2023-12-23 08:59 | Outpatient (REF) | payer OTHER, SELFPAY ==
[2023-12-23 10:47] LABS: Anion Gap 11 (12-20); Blood Urea Nitrogen 13 mg/dL (9-16); Calcium 9.2 mg/dL (8.4-10.2); Carbon Dioxide 29 mmol/L (22-29); Chloride 106 mmol/L (96-108); Estimated Glomerular Filt Rate > 60; Potassium 3.3 mmol/L (3.3-5.1); Sodium 143 mmol/L (135-145)
== END 2023-12-23 09:00 | disposition home or self-care (01) ==
LOC: HO.LAB 08:59
PROVIDERS: PCP Internal Medicine; Visit Provider Internal Medicine Hypertension Specialist
DX: E87.6 Hypokalemia (principal); I10 Essential (primary) hypertension
CPT/HCPCS: 36415; 80051; 82310; 82565; 84520

== ENCOUNTER 2023-12-30 11:33 | Outpatient (AMB) | payer OTHER, SELFPAY ==
[2023-12-30 11:42] VITALS: BP 164/74; PULSE 83; O2SAT 98; BMI 35.0
--- NOTE | 2023-12-30 11:42 | HO.NEPHOV_ITS ---
HPI HPI Comments History of Present Illness Details 78-year-old woman with a history of resi stant hypertension with hypokalemia. Previously she was seen a year ago. Subsequently lost to follow- up. Currently she is accompanied by her GOLF BALL MOLDER. Her blood pressure has been elevated and she has had episodes of hypokalemia. Currently she is on lisinopril along with potassium supplementation and Aldactazide. Today she denies any new complaints no nausea vomiting no polyuria polydipsia no edema. [facility] Medical History Hypokalemia Age-related osteoporosis without current pathological fracture Uncontrolled hypertension COVID-19 vaccine series completed Mitral regurgitation Hypertension Hypercholesterolemia Ischemic colitis Bile salt-induced diarrhea GERD (gastroesophageal reflux disease) Vaginal vault prolapse Anxiety Cardiomyopathy Obesity (BMI 30-39.9) Asthma Coronary artery disease Surgical History History of neck surgery History of thumb surgery History of tubal ligation History of cholecystectomy Family History Father Cancer Mother Cancer Social History Housing: Condominium Alcohol intake: never Patient Tobacco Use Status: Never used Tobacco e-Cigarette/Vaping Use: Never Used Second Hand Smoke Exposure: No service: No Current occupational status: disabled Cognitive needs: No Hearing needs: No Vision needs: Yes Vital Signs 12/30/23 11:42 Height 5 ft 1 in Weight 185 lb BMI 35.0 BP 164/74 H Blood Pressure Location Rt brachial Position Sitting Pulse 83 Pulse Source Pulse Oximeter Pulse Oximetry (%) 98 Oxygen Delivery Method Room Air Physical Exam Vital Signs: Last Vital Signs Pulse 83 12/30/23 11:42 BP 164/74 H 12/30/23 11:42 Pulse Ox 98 12/30/23 11:42 Oxygen Delivery Method Room Air 12/30/23 11:42 BMI result Body Mass Index 35.0 Assessment & Plan Assessment & Plan (1) Hypokalemia: Code(s): E87.6 - Hypokalemia (2) Resistant hypertension: Code(s): I10 - Essential (primary) hypertension Plan Elderly woman with resistant hypertension and hypokalemia. No significant alkalosis With the combination of alkalosis and hypokalemia , hyperaldosteronism is a possibility. However aldosterone level is low at 2 and PA/PRA ratio is 12.5 Unable to rule out a component of white coat effect. (Initial blood pressure was 150/80 however when I checked it blood pressure was 200/90 mmHg.) Obtain 24 hours ABPM Low salt diet Keep current meds Made changes as follows. Keep Lotrel 03/16 one a day. INCREASE spironolactone 50 mg b.i.d.. Recheck serum electrolytes in 2-3 weeks Orders: Orders Basic Metabolic Panel 2 Weeks E87.6 - Hypokalemia, I10 - Essential (primary) hypertension Medications: Changed From spironolactone 25 mg PO BID 60 tabs 2RF To spironolactone 50 mg PO BID 30 tabs 2RF Coding Level of Care Code Est Pt Level 4 (34894) Diagnoses Hypokalemia E87.6 Resistant hypertension I10 Results Reviewed Nephrology Results: Hgb 12.4 g/dl (12.0-16.0) 03/18/23 WBC 5.6 X10*3/uL (4.8-10.8) 03/18/23 Plt Count 287 X10*3/uL (160-400) 03/18/23 Sodium 143 mmol/L (135-145) 12/23/23 Potassium 3.3 mmol/L (3.3-5.1) 12/23/23 Chloride 106 mmol/L (96-108) 12/23/23 Carbon Dioxide 29 mmol/L (22-29) 12/23/23 BUN 13 mg/dL (9-16) 12/23/23 Creatinine 0.70 mg/dL (0.5-1.4) 12/23/23 Calcium 9.2 mg/dL (8.4-10.2) 12/23/23 Urine Creatinine 199.52 mg/dL 10/01/23
== END 2023-12-30 12:01 | disposition home or self-care (01) ==
PROVIDERS: PCP Internal Medicine; Visit Provider Internal Medicine Hypertension Specialist
DX: E87.6 Hypokalemia (principal); I10 Essential (primary) hypertension
CPT/HCPCS: 99214

== ENCOUNTER → 2023-12-30 11:33 | Outpatient (BNVA) | payer OTHER, SELFPAY | PROVIDERS: PCP Internal Medicine; Visit Provider Internal Medicine Hypertension Specialist | DX: E87.6 Hypokalemia (principal); I10 Essential (primary) hypertension | CPT/HCPCS: 99212 ==

== ENCOUNTER 2023-12-31 14:08 | Outpatient (AMB) | payer OTHER, SELFPAY ==
[2023-12-31 14:10] VITALS: BP 178/84; PULSE 89; O2SAT 99; BMI 35.1
--- NOTE | 2023-12-31 14:10 | MHC.PC.OV ---
Vital Signs 12/31/23 14:10 Height 5 ft 1 in Weight 186 lb 0.4 oz BMI 35.1 BP 178/84 H Blood Pressure Location Lt brachial Position Sitting Pulse 89 Pulse Source Pulse Oximeter Pulse Oximetry (%) 99 Oxygen Delivery Method Room Air Intake Visit Reasons: 3 month f/u Intake Note: Patient is here to follow up on 3 months Vp Of Marketing Required: Yes Vp Of Marketing Language: Portuguese Allergies Penicillins Allergy (Severe, Verified 12/31/23 14:38) DIFFICULTY BREATHING atorvastatin [From Lipitor] Allergy (Unknown, Verified 12/31/23 14:38) Unknown FRUITS Allergy (Intermediate, Uncoded 12/31/23 14:38) ITCHY THROAT, HOARSE VOICE SOMETIMES SOB Medication List - Last Reconciled 12/31/23 by Radha Eden MD [AIR PURIFIER As directed] albuterol sulfate 90 mcg/actuation (Ventolin HFA) 2 puffs inhalation Q6H PRN alprazolam 0.125 mg (1/2 x 0.25 mg) PO TID PRN amlodipine-benazepril 5-20 mg 1 cap PO DAILY aspirin (Adult Low Dose Aspirin) 81 mg PO DAILY bisoprolol fumarate 20 mg (2 x 10 mg) PO DAILY 90 days cholecalciferol (vitamin D3) 50 mcg PO DAILY 90 days compr.stocking,thigh,reg,large As directed 20-30 mm HG lidocaine 4% (Aspercreme (lidocaine)) 1 patch topical DAILY PRN omeprazole 20 mg PO DAILY potassium chloride ER 10 mEq PO DAILY rosuvastatin 40 mg PO DAILY sertraline 25 mg PO DAILY spironolactone 50 mg PO BID Tobacco use date assessed: 12/31/23 Fall risk assessment: No Falls in past year Last assessed Fall Risk: 12/31/23 Dental Screening Dental Screen Date: 12/31/23 HPI 3 month f/u HPI Details 78-year-old obese female with resistant hypertension generalized anxiety disorder hypercholesterolemia cardiomyopathy GERD coronary artery disease asthma coming in for follow-up. Last seen in February 2023 patient's colonoscopy is December 2017 mammograms up-to-date bone density is up-to-date. With resistant hypertension and hypokalemia patient has been sent to Nephrology currently on lisinopril with potassium supplementation and Aldactazide patient was advised to get ambulatory blood pressure monitor. Patient placed on Lotrel 03/16 and increase spironolactone to 50 mg twice a day Kunal [id number] PAtient is not aware of her med- she does have in her list bisoprolol. PAtient states problem with med but forgot to bring that med. wants to check on the tongue and ears- [facility] Medical History (Updated 12/31/23 @ 15:19 by Radha Eden MD) Peripheral vascular disease Hypokalemia Age-related osteoporosis without current pathological fracture Uncontrolled hypertension COVID-19 vaccine series completed Mitral regurgitation Hypertension Hypercholesterolemia Ischemic colitis Bile salt-induced diarrhea GERD (gastroesophageal reflux disease) Vaginal vault prolapse Anxiety Cardiomyopathy Obesity (BMI 30-39.9) Asthma Coronary artery disease Surgical History History of neck surgery History of thumb surgery History of tubal ligation History of cholecystectomy Family History Father Cancer Mother Cancer Social History Housing: Condominium Alcohol intake: never Patient Tobacco Use Status: Never used Tobacco e-Cigarette/Vaping Use: Never Used Second Hand Smoke Exposure: No service: No Current occupational status: disabled Cognitive needs: No Hearing needs: No Vision needs: Yes Questionnaire Thrive Questionnaire Date Thrive assessed: 12/31/23 AUDIT C Alcohol Use Questionnaire (AUDIT-C) 1. How often do you have a drink containing alcohol?: Never 2. How many drinks containing alcohol do you have on a typical day when you are drinking?: 1 or 2 (0) 3. How often do you have six or more drinks on one occasion?: Never Total Score: 0 Score Reviewed/Action Taken: No JERALD-7 AMB Questionnaire JERALD-7 Date JERALD - 7 assessed: 12/31/23 Source: Developed by Drs. Caleb Xiao, Donna Torres, Antony Tovar and colleagues, with an educational pao from [employer]. Physical exam (Primary Care) Vital Signs: Last Vital Signs Pulse 89 12/31/23 14:10 BP 178/84 H 12/31/23 14:10 Pulse Ox 99 12/31/23 14:10 Oxygen Delivery Method Room Air 12/31/23 14:10 BMI result Body Mass Index 35.1 Tobacco/Smoking Status: Tobacco use Status Tobacco use date assessed 12/31/23 12/31/23 14:11 Patient Tobacco Use Status Never used Tobacco 12/31/23 14:11 e-Cigarette/Vaping Use Never Used 12/31/23 14:11 Thrive Assessment: Date of Thrive Assessment Date Thrive assessed 12/31/23 12/31/23 14:11 Const General: alert; No acute distress Eyes Conjunctivae: conjunctivae normal Resp Auscultation: clear to auscultation bilaterally Cardio Rate: regular rate Rhythm: regular rhythm GI Inspection: Yes normal to inspection Extrem General: Yes normal to inspection and No edema Assessment and Plan Assessment & Plan (1) Resistant hypertension: Code(s): I10 - Essential (primary) hypertension Plan: Patient has been referred to Nephrology and placed on Lotrel 03/16 with Aldactone. Planned on ambulatory blood pressure monitor (2) Peripheral vascular disease: Code(s): I73.9 - Peripheral vascular disease, unspecified Plan: When sitting down elevate the legs, exercise, and support stockings (3) Coronary artery disease: Comment: NSTMI October 2011 stress cardiomyopathy son May 2014 Dr. Joyce, April 2016 echo May 2019 EF 50-55% moderate aortic regurg, 2021The left ventricular systolic function is normal. The calculated ejection fraction is 67% by biplane method. - There is mild aortic valve regurgitation. Code(s): I25.10 - Atherosclerotic heart disease of [place] coronary artery without angina pectoris Qualifiers: Associated angina: without angina Coronary Disease-Associated Artery/Lesion type: [place] artery [place] vs. transplanted heart: [place] heart Qualified Code(s): I25.10 - Atherosclerotic heart disease of [place] coronary artery without angina pectoris Plan: Control the cholesterol, weight, blood pressure continue with aspirin 81 mg once a day. concern on increase on cholesterol - advised to repeat blood work (4) Asthma: Code(s): J45.909 - Unspecified asthma, uncomplicated Qualifiers: Asthma complication type: uncomplicated Asthma persistence: intermittent Asthma severity: mild Qualified Code(s): J45.20 - Mild intermittent asthma, uncomplicated Plan: Continue with the inhaler as needed (5) Obesity (BMI 30-39.9): Code(s): E66.9 - Obesity, unspecified Plan: Diet and exercise (6) GERD (gastroesophageal reflux disease): Code(s): K21.9 - Gastro-esophageal reflux disease without esophagitis Qualifiers: Esophagitis presence: without esophagitis Qualified Code(s): K21.9 - Gastro-esophageal reflux disease without esophagitis Plan: Avoid the foods that causes that usually spicy foods, tomato products, juices, coffee, soda and foods that your sensitive to. After eating do not lie down, allow 3-4 hours before in lie down. And keep the head of bed above 30 degrees to avoid the acid from going up. (7) Hypercholesterolemia: Code(s): E78.00 - Pure hypercholesterolemia, unspecified Plan: Avoid fried foods, chicken skin, eggs, butter margarine, pastries and meat. Be it pork or beef they have a lot of cholesterol LDL goal of less than 70 and triglyceride of less than 150. Rosuvastatin 40 mg once a day September 2023 blood work 123 (8) Generalized anxiety disorder: Comment: declined referral (12/2023) Code(s): F41.1 - Generalized anxiety disorder Plan: Continue with present medication (9) Hearing loss: Code(s): H91.90 - Unspecified hearing loss, unspecified ear Orders: Orders Vitamin D 25-OH Total 3 Months I25.10 - Atherosclerotic heart disease of [place] coronary artery without angina pectoris Complete Blood Count Auto Diff 3 Months I25.10 - Atherosclerotic heart disease of [place] coronary artery without angina pectoris Comprehensive Met. Panel 3 Months I25.10 - Atherosclerotic heart disease of [place] coronary artery without angina pectoris Free T4 (Free Thyroxine) 3 Months I25.10 - Atherosclerotic heart disease of [place] coronary artery without angina pectoris Lipid Panel 3 Months E78.00 - Pure hypercholesterolemia, unspecified, I25.10 - Atherosclerotic heart disease of [place] coronary artery without angina pectoris Thyroid Stimulating Hormone 3 Months I25.10 - Atherosclerotic heart disease of [place] coronary artery without angina pectoris Vitamin B12 and Folate 3 Months I25.10 - Atherosclerotic heart disease of [place] coronary artery without angina pectoris Referrals Speech and Hearing Referral H91.90 - Unspecified hearing loss, unspecified ear Coding Level of Care Code Est Pt Level 4 (78846) Diagnoses Resistant hypertension I10 Peripheral vascular disease I73.9 Coronary artery disease involving [place] coronary artery of [place] heart without angina pectoris I25.10 Associated angina: without angina Coronary Disease-Associated Artery/Lesion type: [place] artery [place] vs. transplanted heart: [place] heart Mild intermittent asthma without complication J45.20 Asthma complication type: uncomplicated Asthma persistence: intermittent Asthma severity: mild Obesity (BMI 30-39.9) E66.9 Gastroesophageal reflux disease without esophagitis K21.9 Esophagitis presence: without esophagitis Hypercholesterolemia E78.00 Generalized anxiety disorder F41.1 Hearing loss H91.90
== END 2023-12-31 15:27 | disposition home or self-care (01) ==
PROVIDERS: PCP Internal Medicine; Visit Provider Internal Medicine
DX: I10 Essential (primary) hypertension (principal); I73.9 Peripheral vascular disease, unspecified; I25.10 Atherosclerotic heart disease of native coronary artery without angina pectoris; J45.20 Mild intermittent asthma, uncomplicated; E66.9 Obesity, unspecified; K21.9 Gastro-esophageal reflux disease without esophagitis; E78.00 Pure hypercholesterolemia, unspecified; F41.1 Generalized anxiety disorder; H91.90 Unspecified hearing loss, unspecified ear
CPT/HCPCS: 99214

== ENCOUNTER → 2024-01-01 10:57 | Outpatient (BNVA) | payer OTHER, SELFPAY | PROVIDERS: PCP Internal Medicine; Visit Provider Internal Medicine Hypertension Specialist ==

== ENCOUNTER → 2024-01-02 11:06 | Outpatient (BNVA) | payer OTHER, SELFPAY | PROVIDERS: PCP Internal Medicine; Visit Provider Internal Medicine Hypertension Specialist ==

== ENCOUNTER 2024-01-07 09:50 | Outpatient (REF) | payer OTHER, SELFPAY ==
[2024-01-07 10:56] LABS: Anion Gap 13 (12-20); Blood Urea Nitrogen 15 mg/dL (9-16); Calcium 9.6 mg/dL (8.4-10.2); Carbon Dioxide 30 mmol/L (22-29); Chloride 104 mmol/L (96-108); Estimated Glomerular Filt Rate > 60; Glucose Random 114 mg/dL (60-115); Potassium 3.6 mmol/L (3.3-5.1); Sodium 143 mmol/L (135-145)
== END 2024-01-07 09:51 | disposition home or self-care (01) ==
LOC: HO.LAB 09:50
PROVIDERS: PCP Internal Medicine; Visit Provider Internal Medicine Hypertension Specialist
DX: E87.6 Hypokalemia (principal); I10 Essential (primary) hypertension
CPT/HCPCS: 36415; 80048

== ENCOUNTER 2024-01-20 11:18 | Outpatient (AMB) | payer OTHER, SELFPAY ==
[2024-01-20 11:21] VITALS: BP 162/82; PULSE 77; O2SAT 98; BMI 35.0
--- NOTE | 2024-01-20 11:21 | HO.NEPHOV ---
HPI HPI Comments History of Present Illness Details 78-year-old woman with a history of resistant hypertension with hypokalemia. Previously she was seen a year ago. Subsequently lost to follow-up. Currently she is accompanied by her BRIM WELT SEWING MACHINE OPERATOR. Her blood pressure has been elevated and she has had episodes of hypokalemia. Currently she is on lisinopril along with potassium supplementation and Aldactazide. Today she denies any new complaints no nausea vomiting no polyuria polydipsia no edema. COUNT INCLUDES [facility] Medical History (Updated 12/31/23 @ 15:19 by Radha Eden MD) Peripheral vascular disease Hypokalemia Age-related osteoporosis without current pathological fracture Uncontrolled hypertension COVID-19 vaccine series completed Mitral regurgitation Hypertension Hypercholesterolemia Ischemic colitis Bile salt-induced diarrhea GERD (gastroesophageal reflux disease) Vaginal vault prolapse Anxiety Cardiomyopathy Obesity (BMI 30-39.9) Asthma Coronary artery disease Surgical History History of neck surgery History of thumb surgery History of tubal ligation History of cholecystectomy Family History Father Cancer Mother Cancer Social History Housing: Condominium Alcohol intake: never Patient Tobacco Use Status: Never used Tobacco e-Cigarette/Vaping Use: Never Used Second Hand Smoke Exposure: No service: No Current occupational status: disabled Cognitive needs: No Hearing needs: No Vision needs: Yes Vital Signs 01/20/24 11:21 Height 5 ft 1 in Weight 185 lb BMI 35.0 BP 162/82 H Blood Pressure Location Lt brachial Position Sitting Pulse 77 Pulse Source Pulse Oximeter Pulse Oximetry (%) 98 Oxygen Delivery Method Room Air Physical Exam Vital Signs: Last Vital Signs Pulse 77 01/20/24 11:21 BP 162/82 H 01/20/24 11:21 Pulse Ox 98 01/20/24 11:21 Oxygen Delivery Method Room Air 01/20/24 11:21 BMI result Body Mass Index 35.0 Assessment & Plan Assessment & Plan (1) Hypokalemia: Code(s): E87.6 - Hypokalemia (2) Resistant hypertension: Code(s): I10 - Essential (primary) hypertension Plan Elderly woman with resistant hypertension and hypokalemia. No significant alkalosis With the combination of alkalosis and hypokalemia , hyperaldosteronism is a possibility. However aldosterone level is low at 2 and PA/PRA ratio is 12.5 Unable to rule out a component of white coat effect. (Initial blood pressure was 150/80 however when I checked it blood pressure was 200/90 mmHg.) 24 hours ABPM shows reasonably controlled HTN with 24 hr average SBP of 133 WITH superimposed white coat effect. - SBP 165 in office Low salt diet Keep current meds Keep Lotrel 20 one a day. spironolactone 50 mg b.i.d.. Orders: Orders Basic Metabolic Panel 4 Months E87.6 - Hypokalemia Medications: Refilled cholecalciferol (vitamin D3) 50 mcg PO DAILY 90 caps 3RF 90 days I10 - Essential (primary) hypertension Coding Level of Care Code Est Pt Level 3 (80568) Diagnoses Hypokalemia E87.6 Resistant hypertension I10 Results Reviewed Nephrology Results: Sodium 143 mmol/L (135-145) 01/07/24 Potassium 3.6 mmol/L (3.3-5.1) 01/07/24 Chloride 104 mmol/L (96-108) 01/07/24 Carbon Dioxide 30 mmol/L (22-29) H 01/07/24 BUN 15 mg/dL (9-16) 01/07/24 Creatinine 0.78 mg/dL (0.5-1.4) 01/07/24 Calcium 9.6 mg/dL (8.4-10.2) 01/07/24
== END 2024-01-20 11:37 | disposition home or self-care (01) ==
PROVIDERS: PCP Internal Medicine; Visit Provider Internal Medicine Hypertension Specialist
DX: E87.6 Hypokalemia (principal); I10 Essential (primary) hypertension
CPT/HCPCS: 99213

== ENCOUNTER → 2024-01-20 11:18 | Outpatient (BNVA) | payer OTHER, SELFPAY | PROVIDERS: PCP Internal Medicine; Visit Provider Internal Medicine Hypertension Specialist | DX: I10 Essential (primary) hypertension (principal); E87.6 Hypokalemia | CPT/HCPCS: 99212 ==

== ENCOUNTER 2024-04-08 12:43 | Outpatient (AMB) | payer OTHER, SELFPAY ==
[2024-04-08 13:09] VITALS: BP 152/80; PULSE 78; O2SAT 97; BMI 35.0
--- NOTE | 2024-04-08 13:09 | A.OFFPC_ITS ---
Vital Signs 04/08/24 13:09 Height 5 ft 1 in Weight 185 lb BMI 35.0 BP 152/80 H Blood Pressure Location Lt brachial Position Sitting Pulse 78 Pulse Source Pulse Oximeter Pulse Oximetry (%) 97 Oxygen Delivery Method Room Air Intake Visit Reasons: Hypertension Allergies Penicillins Allergy (Severe, Verified 04/08/24 13:10) DIFFICULTY BREATHING atorvastatin [From Lipitor] Allergy (Unknown, Verified 04/08/24 13:10) Unknown FRUITS Allergy (Intermediate, Uncoded 04/08/24 13:10) ITCHY THROAT, HOARSE VOICE SOMETIMES SOB Tobacco use date assessed: 12/31/23 Fall risk assessment: No Falls in past year Last assessed Fall Risk: 04/08/24 Dental Screening Dental Screen Date: 12/31/23 HPI Hypertension HPI Details 79-year-old obese female with hypertensi on coronary artery disease asthma GERD hypercholesterolemia generalized anxiety disorder peripheral vascular disease last seen in 01/15/2024. Patient's last colonoscopy December 2017 mammogram is up-to-date. Patient follows up with Nephrology had an ambulatory blood pressure monitor average of 167/116, nighttime average 138/100= Antonino Mccall [id number] interprete [facility] Medical History (Updated 12/31/23 @ 15:19 by Radha Eden MD) Peripheral vascular disease Hypokalemia Age-related osteoporosis without current pathological fracture Uncontrolled hypertension COVID-19 vaccine series completed Mitral regurgitation Hypertension Hypercholesterolemia Ischemic colitis Bile salt-induced diarrhea GERD (gastroesophageal reflux disease) Vaginal vault prolapse Anxiety Cardiomyopathy Obesity (BMI 30-39.9) Asthma Coronary artery disease Surgical History History of neck surgery History of thumb surgery History of tubal ligation History of cholecystectomy Family History Father Cancer Mother Cancer Social History Housing: Condominium Alcohol intake: never Patient Tobacco Use Status: Never used Tobacco e-Cigarette/Vaping Use: Never Used Second Hand Smoke Exposure: No service: No Current occupational status: disabled Cognitive needs: No Hearing needs: No Vision needs: Yes Questionnaire PHQ-9 Over the last 2 weeks, how often have you been bothered by any of the following problems? 1. Little interest or pleasure in doing things: not at all 2. Feeling down, depressed, or hopeless: not at all 3. Trouble falling or staying asleep, or sleeping too much: not at all 4. Feeling tired or having little energy: not at all 5. Poor appetite or overeating: not at all 6. Feeling bad about yourself - or that you are a failure or have let yourself or your family down: not at all 7. Trouble concentrating on things, such as reading the newspaper or watching television: not at all 8. Moving or speaking so slowly that other people could have noticed. Or the opposite - being so fidgety or restless that you have been moving around a lot more than usual: not at all 9. Thoughts that you would be better off or of hurting yourself in some way: not at all Total score: 0 Depression Screening Interpretation: Negative Depression Screening Done: Yes Source: Developed by Drs. Caleb Xiao, Donna Torres, Antony Tovar and colleagues, with an educational pao from [employer]. Thrive Questionnaire Date Thrive assessed: 12/31/23 AUDIT C Alcohol Use Questionnaire (AUDIT-C) 1. How often do you have a drink containing alcohol?: Never 2. How many drinks containing alcohol do you have on a typical day when you are drinking?: 1 or 2 (0) 3. How often do you have six or more drinks on one occasion?: Never Total Score: 0 Score Reviewed/Action Taken: No JERALD-7 AMB Questionnaire JERALD-7 Date JERALD - 7 assessed: 12/31/23 Source: Developed by Drs. Caleb Xiao, Donna Torres, Antony Tovar and colleagues, with an educational pao from [employer]. Physical exam (Primary Care) Vital Signs: Last Vital Signs Pulse 78 04/08/24 13:09 BP 152/80 H 04/08/24 13:09 Pulse Ox 97 04/08/24 13:09 Oxygen Delivery Method Room Air 04/08/24 13:09 BMI result Body Mass Index 35.0 Tobacco/Smoking Status: Tobacco use Status Tobacco use date assessed 12/31/23 04/08/24 13:16 Patient Tobacco Use Status Never used Tobacco 04/08/24 13:16 e-Cigarette/Vaping Use Never Used 04/08/24 13:16 PHQ-9: PHQ-9 Score PHQ-9: Total score 0 04/08/24 13:22 Depression Screening Interpretation: Negative Thrive Assessment: Date of Thrive Assessment Date Thrive assessed 12/31/23 04/08/24 13:16 Assessment and Plan Assessment & Plan (1) Resistant hypertension: Code(s): I10 - Essential (primary) hypertension Plan: Patient follows up with Nephrology and has had ambulatory blood pressure monitor presently on Lotrel and spironolactone 50 mg twice a day (2) Generalized anxiety disorder: Comment: declined referral (12/2023) Code(s): F41.1 - Generalized anxiety disorder Plan: Continue with present medication (3) Obesity (BMI 30-39.9): Code(s): E66.9 - Obesity, unspecified Plan: Diet and exercise (4) Coronary artery disease: Comment: NSTMI October 2011 stress cardiomyopathy son May 2014 Dr. Joyce, April 2016 echo May 2019 EF 50-55% moderate aortic regurg, 2021The left ventricular systolic function is normal. The calculated ejection fraction is 67% by biplane method. - There is mild aortic valve regurgitation. Code(s): I25.10 - Atherosclerotic heart disease of [place] coronary artery without angina pectoris Qualifiers: Coronary Disease-Associated Artery/Lesion type: [place] artery [place] vs. transplanted heart: [place] heart Associated angina: without angina Qualified Code(s): I25.10 - Atherosclerotic heart disease of [place] coronary artery without angina pectoris Plan: Control the cholesterol, weight, blood pressure, continue with rosuvastatin 40 mg once a day and continue with aspirin (5) Hypercholesterolemia: Code(s): E78.00 - Pure hypercholesterolemia, unspecified Plan: Avoid fried foods, chicken skin, eggs, butter margarine, pastries and meat. Be it pork or beef they have a lot of cholesterol LDL goal of less than 100 and triglyceride of less than 150. On rosuvastatin 40 mg once a day Medications: Refilled aspirin (Adult Low Dose Aspirin) 81 mg PO DAILY 90 tabs 3RF Coding Level of Care Code Est Pt Level 4 (53469) Complex EM visit Add On G2211 Diagnoses Resistant hypertension I10 Generalized anxiety disorder F41.1 Obesity (BMI 30-39.9) E66.9 Coronary artery disease involving [place] coronary artery of [place] heart without angina pectoris I25.10 Coronary Disease-Associated Artery/Lesion type: [place] artery [place] vs. transplanted heart: [place] heart Associated angina: without angina Hypercholesterolemia E78.00
== END 2024-04-08 14:19 | disposition home or self-care (01) ==
PROVIDERS: PCP Internal Medicine; Visit Provider Internal Medicine
DX: I10 Essential (primary) hypertension (principal); F41.1 Generalized anxiety disorder; Z68.35 Body mass index [BMI] 35.0-35.9, adult; E66.9 Obesity, unspecified; I25.10 Atherosclerotic heart disease of native coronary artery without angina pectoris; E78.00 Pure hypercholesterolemia, unspecified
CPT/HCPCS: 99214; G2211

== ENCOUNTER 2024-05-18 08:27 | Outpatient (REF) | payer OTHER, SELFPAY ==
[2024-05-18 08:43] LABS: MANUAL DIFF FLAG NO
[2024-05-18 09:19] LABS: Basophils Percent Auto 0.6 % (0-2); Eosinophils Percent Auto 0.8 % (0-4); Hematocrit 37.9 % (37.0-47.0); Hemoglobin 12.5 g/dl (12.0-16.0); Imm Gran Abs Auto 0.01 X10*3/uL (0.00-0.03); Imm Gran Pct Auto 0.2 % (0.0-0.4); Lymphocytes Absolute Auto 1.6 X10*3/uL (1.2-4.9); Lymphocytes Percent Auto 33.3 % (20-40); Mean Corpuscular Hemoglobin 31.4 pg (27.0-33.0); Mean Corpuscular Volume 95.2 fL (80.0-98.0); Mean Platelet Volume 10.5 fL (9.4-12.3); Monocytes Absolute Auto 0.3 X10*3/uL (0.1-1.2); Monocytes Percent Auto 6.1 % (2-11); Neutrophils Absolute Auto 2.9 x10*3/uL (2.0-8.3); Platelet Count 274 X10*3/uL (160-400); Red Blood Count 3.98 X10*6/uL (4.20-5.50); Red Cell Distribution Width 13.1 % (11.0-16.0); White Blood Count 4.9 X10*3/uL (4.8-10.8)
[2024-05-18 10:06] LABS: Alanine Aminotransferase 11 U/L (0-31); Albumin Level 4.2 g/dL (3.5-5.0); Alkaline Phosphatase 71 U/L (39-117); Anion Gap 13 (12-20); Aspartate Amino Transferase 23 U/L (5-31); Bilirubin Total 0.5 mg/dL (0.0-1.0); Blood Urea Nitrogen 12 mg/dL (9-16); Calcium 9.7 mg/dL (8.4-10.2); Carbon Dioxide 28 mmol/L (22-29); Chloride 105 mmol/L (96-108); Cholesterol 166 mg/dL (<200); Estimated Glomerular Filt Rate > 60; Glucose Random 96 mg/dL (60-115); HDL Cholesterol 41 mg/dL (>40); LDL Cholesterol Calculated 104 mg/dL (<100); Potassium 3.9 mmol/L (3.3-5.1); Sodium 142 mmol/L (135-145); Thyroid Stimulating Hormone 1.26 uIU/mL (0.32-4.0); Total Protein 7.3 g/dL (6.5-8.0); Triglycerides 106 mg/dL (<150)
[2024-05-18 10:16] LABS: Free T4 (Free Thyroxine) 0.85 ng/dL (0.71-1.85); Vitamin D 25-OH Total 19.9 ng/mL (>30)
[2024-05-18 13:10] LABS: Vitamin B12 626 pg/mL (200-900)
[2024-05-18 13:27] LABS: Folate 7.9 ng/mL (> or = 4.0)
== END 2024-05-18 08:28 | disposition home or self-care (01) ==
LOC: HO.LAB 08:27
PROVIDERS: Internal Medicine Hypertension Specialist; PCP Internal Medicine; Visit Provider Internal Medicine
DX: I25.10 Atherosclerotic heart disease of native coronary artery without angina pectoris (principal); E78.00 Pure hypercholesterolemia, unspecified
CPT/HCPCS: 36415; 80053; 80061; 82306; 82607; 82746; 84439; 84443; 85025

== ENCOUNTER 2024-05-19 11:02 | Outpatient (AMB) | payer OTHER, SELFPAY ==
--- NOTE | 2024-05-19 11:10 | HO.NEPHOV_ITS ---
Vital Signs 05/19/24 11:11 Height 5 ft 1 in Weight 188 lb BMI 35.5 BP 166/68 H Blood Pressure Location Lt brachial Position Sitting Pulse 49 L Pulse Source Pulse Oximeter Pulse Oximetry (%) 97 Oxygen Delivery Method Room Air Intake Visit Reasons: Hypokalemia/ April/ Conf Intake Note: LIQUEFACTION AND REGASIFICATION HELPER will translate for patient, Patient refusal form scanned into chart. Oil And Gas Exploration Technician Required: No Accompanied by: LIQUEFACTION AND REGASIFICATION HELPER Allergies Penicillins Allergy (Severe, Verified 05/19/24 11:13) DIFFICULTY BREATHING atorvastatin [From Lipitor] Allergy (Unknown, Verified 05/19/24 11:13) Unknown FRUITS Allergy (Intermediate, Uncoded 04/08/24 13:10) ITCHY THROAT, HOARSE VOICE SOMETIMES SOB HPI Comments Details: 78-year-old woman with a history of resistant hypertension with hypokalemia. Previously she was seen a year ago. Subsequently lost to follow-up. Currently she is accompanied by her LIQUEFACTION AND REGASIFICATION HELPER. Her blood pressure has been elevated and she has had episodes of hypokalemia. Currently she is on lisinopril along with potassium supplementation and Aldactazide. Today she denies any new complaints no nausea vomiting no polyuria polydipsia no edema. 05/19/2024. Home blood pressure readings are excellent. Accompanied by caregiver. No specific complaints today. She walks about 20-30 minutes every day [facility] Medical History (Updated 12/31/23 @ 15:19 by Radha Eden MD) Peripheral vascular disease Hypokalemia Age-related osteoporosis without current pathological fracture Uncontrolled hypertension COVID-19 vaccine series completed Mitral regurgitation Hypertension Hypercholesterolemia Ischemic colitis Bile salt-induced diarrhea GERD (gastroesophageal reflux disease) Vaginal vault prolapse Anxiety Cardiomyopathy Obesity (BMI 30-39.9) Asthma Coronary artery disease Surgical History History of neck surgery History of thumb surgery History of tubal ligation History of cholecystectomy Family History Father Cancer Mother Cancer Social History Housing: Condominium Alcohol intake: never Patient Tobacco Use Status: Never used Tobacco e-Cigarette/Vaping Use: Never Used Second Hand Smoke Exposure: No service: No Current occupational status: disabled Cognitive needs: No Hearing needs: No Vision needs: Yes Physical Exam Vital Signs: Last Vital Signs Pulse 49 L 05/19/24 11:11 BP 166/68 H 05/19/24 11:11 Pulse Ox 97 05/19/24 11:11 Oxygen Delivery Method Room Air 05/19/24 11:11 BMI result Body Mass Index 35.5 Const General: comfortable; No acute distress Orientation/consciousness: patient oriented x3 Eyes General: appearance normal, both eyes and all related structures Visual Noriega: normal visual noriega by confrontation Neck Neck: Yes supple and Yes no JVD Resp Effort & Inspection: normal respiratory effort and respiratory effort not decreased Auscultation: rhonchi Cardio Palpation: no palpable S3 and no palpable S4 Heart sounds: no rubs GI Inspection: Yes normal to inspection Palpation (GI): Soft to palpation Percussion: Yes normal to percussion Auscultation: normal bowel sounds General: Yes no CVA tenderness Back/Spine/Pelvis Back: no CVA tenderness Skin General skin exam: no petechiae and no purpura Neuro General: patient oriented x3 and no focal motor deficits Extrem General: No clubbing and No edema Results Reviewed Nephrology Results: Hgb 12.5 g/dl (12.0-16.0) 05/18/24 WBC 4.9 X10*3/uL (4.8-10.8) 05/18/24 Plt Count 274 X10*3/uL (160-400) 05/18/24 Sodium 142 mmol/L (135-145) 05/18/24 Potassium 3.9 mmol/L (3.3-5.1) 05/18/24 Chloride 105 mmol/L (96-108) 05/18/24 Carbon Dioxide 28 mmol/L (22-29) 05/18/24 BUN 12 mg/dL (9-16) 05/18/24 Creatinine 0.80 mg/dL (0.5-1.4) 05/18/24 Calcium 9.7 mg/dL (8.4-10.2) 05/18/24 Assessment & Plan Assessment & Plan (1) Hypokalemia: Code(s): E87.6 - Hypokalemia Category: Medical (2) Resistant hypertension: Code(s): I10 - Essential (primary) hypertension Category: Medical Plan Elderly woman with resistant hypertension and hypokalemia. No significant alkalosis With the combination of alkalosis and hypokalemia , hyperaldosteronism is a possibility. However aldosterone level is low at 2 and PA/PRA ratio is 12.5 Unable to rule out a component of white coat effect. (Initial blood pressure was 150/80 however when I checked it blood pressure was 200/90 mmHg.) 24 hours ABPM shows reasonably controlled HTN with 24 hr average SBP of 133 WITH superimposed white coat effect. - SBP 165 in office Low salt diet Keep current meds Keep Lotrel 20 one a day. spironolactone 50 mg b.i.d.. Orders: Orders Basic Metabolic Panel 4 Months E87.6 - Hypokalemia, I10 - Essential (primary) hypertension Coding Level of Care Code Est Pt Level 4 (15978) Diagnoses Hypokalemia E87.6 Resistant hypertension I10
[2024-05-19 11:11] VITALS: BP 166/68; PULSE 49; O2SAT 97; BMI 35.5
== END 2024-05-19 11:35 | disposition home or self-care (01) ==
PROVIDERS: PCP Internal Medicine; Visit Provider Internal Medicine Hypertension Specialist
DX: E87.6 Hypokalemia (principal); I10 Essential (primary) hypertension
CPT/HCPCS: 99214

== ENCOUNTER → 2024-05-19 11:02 | Outpatient (BNVA) | payer OTHER, SELFPAY | PROVIDERS: PCP Internal Medicine; Visit Provider Internal Medicine Hypertension Specialist | DX: E87.6 Hypokalemia (principal); I10 Essential (primary) hypertension | CPT/HCPCS: 99212 ==

== ENCOUNTER 2024-07-06 15:23 | Outpatient (AMB) | payer OTHER, SELFPAY ==
--- NOTE | 2024-07-06 16:03 | MHC.OFFWIV ---
Intake Vital Signs 07/06/24 16:04 07/06/24 16:26 Height 5 ft 1 in Weight 187 lb BMI 35.3 BP 240/90 H 240/100 H Blood Pressure Location Lt brachial Lt brachial Position Sitting Sitting Pulse 76 Pulse Source Pulse Oximeter Pulse Oximetry (%) 98 Oxygen Delivery Method Room Air Intake Visit Reasons: EP dizzy, stomach, BP elevated Intake Note: patient here for dizziness and stomach pain. Patient Tobacco Use Status: Never used Tobacco Allergies Penicillins Allergy (Severe, Verified 07/06/24 16:06) DIFFICULTY BREATHING atorvastatin [From Lipitor] Allergy (Unknown, Verified 07/06/24 16:06) Unknown FRUITS Allergy (Intermediate, Uncoded 07/06/24 16:06) ITCHY THROAT, HOARSE VOICE SOMETIMES SOB Do you need a note to return to daycare/school/sports/work: No HPI HPI Comments History of Present Illness Details Patient is a 79-year-old female with a history of PVD, CAD, cardiomyopathy, resistant hypertension, asthma and anxiety who presents with 1 day of hypertension. She is here with her HAM SAWYER who is interpreting for her. Patient states that she checks her blood pressure at home with a machine. They state that she is not very good about taking her blood pressure medications and when she does not feel good, she checks her blood pressure. They state that she woke up this morning not feeling well and then finally got up to take her blood pressure and it was extremely elevated. She also was dizzy, lightheaded, nauseous and had abdominal pain in her lower abdomen that radiated to her low back. At 15:00, she took 40 mg of amlodipine and 25 mg of spironolactone, her normal daily medications. She was not feeling any better so she asked her HAM SAWYER to bring her to the walk-in. She denies any upper back pain, left arm pain, neck pain, jaw pain or chest pain or shortness of breath. [facility] Medical History (Updated 07/06/24 @ 16:40 by Jeanette Romero PA-C) Peripheral vascular disease Hypokalemia Age-related osteoporosis without current pathological fracture Uncontrolled hypertension COVID-19 vaccine series completed Mitral regurgitation Hypertension Hypercholesterolemia Ischemic colitis Bile salt-induced diarrhea GERD (gastroesophageal reflux disease) Vaginal vault prolapse Anxiety Cardiomyopathy Obesity (BMI 30-39.9) Asthma Coronary artery disease Surgical History History of neck surgery History of thumb surgery History of tubal ligation History of cholecystectomy Family History Father Cancer Mother Cancer Social History Housing: Condominium Alcohol intake: never Patient Tobacco Use Status: Never used Tobacco e-Cigarette/Vaping Use: Never Used Second Hand Smoke Exposure: No service: No Current occupational status: disabled Cognitive needs: No Hearing needs: No Vision needs: Yes Review of Systems Const All systems reviewed & are unremarkable except as noted in HPI and below Physical Exam Vital Signs: Last Vital Signs Pulse 76 07/06/24 16:04 BP 240/90 H 07/06/24 16:04 Pulse Ox 98 07/06/24 16:04 Oxygen Delivery Method Room Air 07/06/24 16:04 BMI result Body Mass Index 35.3 Const General: cooperative, healthy appearing, comfortable, no acute distress and well developed Orientation/consciousness: patient oriented x3 Limitations: no limitations HEENT Head: Yes normal to inspection Ears: hearing grossly normal bilaterally General nose exam: Normal external nose present Face and sinus: Yes normal facial exam Eyes General: appearance normal, both eyes and all related structures Neck Neck: Yes normal visual inspection and Yes full ROM Resp Effort & Inspection: normal respiratory effort and able to speak in complete sentences Auscultation: clear to auscultation bilaterally Cardio Rate: bradycardic Rhythm: regular rhythm Heart sounds: normal S1 and S2 Skin General skin exam: no rashes or lesions noted Neuro General: patient oriented x3 Extrem General: Yes normal to inspection Office Procedures EKG Details: Sinus bradycardia at 52 beats per minute, no ST or T-wave changes [id number], Complete Assessment & Plan Assessment & Plan (1) Hypertensive emergency: Code(s): I16.1 - Hypertensive emergency Plan: Repeat BP 240/100. Called ALS crew to transport patient to [facility] emergency department. Called [facility] emergency department with expect. Plan see above Coding Level of Care Code Est Pt Level 5 (94624) Diagnoses Hypertensive emergency I16.1 CPT Codes EKG - CPT: 81933-[id number], Complete ([id number])
[2024-07-06 16:04] VITALS: BP 240/90; PULSE 76; O2SAT 98; BMI 35.3
[2024-07-06 16:26] VITALS: BP 240/100
== END 2024-07-06 16:50 | disposition home or self-care (01) ==
PROVIDERS: PCP Internal Medicine; Visit Provider Physician Assistant
DX: I16.1 Hypertensive emergency (principal)
CPT/HCPCS: 93000; 99215

== ENCOUNTER 2024-07-06 16:55 | Emergency (ER) | payer OTHER, SELFPAY ==
[2024-07-06] VITALS (10 sets, daily range): BP systolic 155–237; BP diastolic 68–121; PULSE 51–70; RESP 16–20; TEMP 36.3–37.1; O2SAT 97–99; BMI 37.8
--- NOTE | 2024-07-06 17:02 | ED_ITS ---
HPI - General Adult General Chief complaint: General Medical Stated complaint: HTN, SINUS CADENCE PER EMS Time Seen by Provider: 07/06/24 17:02 Source: patient and EMS Mode of arrival: EMS Limitations: language barrier ([place]idadian-speaking certified court interpreter utilized) History of Present Illness HPI narrative: Patient is a 79-year-old female presenting to the emergency department coming from primary care doctor's office. She reports that she awoke this morning not feeling well, she was experiencing lower abdominal pain described as ?air? that radiated to her lower back diffusely. She passed gas and had 2 bowel movements which ultimately resolved her abdominal pain. She does state that when she awoke she was feeling dizzy described as unsteady when she got out of bed and nauseous. She had breakfast and overall this improved, but she does admit to having slight dizziness/unsteady sensation when she walks but reports it is very mild. She checked her blood pressure and it was extremely elevated which prompted her concern. She took her home medications including amlodipine- benazepril 5-20 mg and spironolactone 50 mg. Her PRODUCT SUPPORT ENGINEER who is at bedside states that she does not always take her medications, by her inventory audit clerk account she only takes it when she realizes that her blood pressure is high but she does not check it on a routine basis, patient states that she takes her medication often but not always, does not provide any clear rationale as to why she opts to not take it on certain days. Currently she denies headache, neck pain, jaw pain, chest pain, shortness of breath, upper back pain. Related Data Home Medications ?Medication ?Instructions ?Recorded ?Confirmed Hand held step stool 06/16/24 Previous Rx's ?Medication ?Instructions ?Recorded alprazolam 0.25 mg tablet 0.125 mg (1/2 x 0.25 mg) PO TID 09/12/20 PRN anxiety #20 tabs compr.stocking,thigh,reg,large #2 ea 11/22/21 AIR PURIFIER #1 ea 01/21/23 lidocaine 4 % topical patch 1 patch topical DAILY PRN pain #30 09/24/23 (Aspercreme (lidocaine)) ea albuterol sulfate 90 mcg/actuation 2 puff inhalation Q6H PRN 10/14/23 aerosol inhaler (Ventolin HFA) shortness of breath or wheezing #8.5 grams rosuvastatin 40 mg tablet 40 mg PO DAILY #90 tabs 10/14/23 spironolactone 50 mg tablet 50 mg PO BID #180 tabs 01/08/24 cholecalciferol (vitamin D3) 50 50 mcg PO DAILY 90 days #90 caps 01/20/24 mcg (2,000 unit) capsule aspirin 81 mg tablet,delayed 81 mg PO DAILY #90 tabs 04/08/24 release (Adult Low Dose Aspirin) amlodipine 5 mg-benazepril 20 mg 1 cap PO DAILY #90 caps 05/05/24 capsule bisoprolol fumarate 10 mg tablet 20 mg (2 x 10 mg) PO DAILY 90 days 05/05/24 #180 tabs step stool with handle #1 ea 06/16/24 omeprazole 20 mg capsule,delayed 20 mg PO DAILY #90 caps 06/26/24 release potassium chloride 10 mEq 10 meq PO DAILY #90 tabs 06/30/24 tablet,extended release(part/cryst) (Klor-Con M) sertraline 25 mg tablet 25 mg PO DAILY #90 tabs 06/30/24 Allergies Allergy/AdvReac Type Severity Reaction Status Date / Time Penicillins Allergy Severe DIFFICULTY Verified 07/06/24 17:20 BREATHING atorvastatin [From Lipitor] Allergy Unknown Unknown Verified 07/06/24 17:20 FRUITS Allergy Intermediate ITCHY Uncoded 07/06/24 16:06 THROAT, HOARSE VOICE SOMETIMES SOB Review of Systems 2 Review of Systems: Yes all other systems are reviewed and are negative PMFSH Past Medical History Attestation statement: The following information was validated with the patient. Source: old records reviewed Medical History Peripheral vascular disease Hypokalemia Age-related osteoporosis without current pathological fracture Uncontrolled hypertension COVID-19 vaccine series completed Mitral regurgitation Hypertension Hypercholesterolemia Ischemic colitis Bile salt-induced diarrhea GERD (gastroesophageal reflux disease) Vaginal vault prolapse Anxiety Cardiomyopathy Obesity (BMI 30-39.9) Asthma Coronary artery disease Surgical History History of neck surgery History of thumb surgery History of tubal ligation History of cholecystectomy Family History Family History Father Cancer Mother Cancer Social History Social History Housing: Condominium Alcohol intake: never Patient Tobacco Use Status: Never used Tobacco Smoked in Last 30 Days: No e-Cigarette/Vaping Use: Never Used Second Hand Smoke Exposure: No Use of substances other than those prescribed or required for medical reasons: No Advance Directives: No Advance Directives Information Provided: Yes Do you have a plan to hurt others: No Plan service: No Current occupational status: disabled Cognitive needs: No Hearing needs: No Vision needs: Yes Physical Exam ED Vital Signs: Vital Signs - 24 hr 07/06/24 23:05 Temperature 98.0 F Pulse Rate 59 Respiratory Rate 18 Blood Pressure 166/68 H Pulse Oximetry 98 Oxygen Delivery Method Room Air BMI result Body Mass Index 37.8 Appearance: Alert.?Oriented to person, place and time. No acute distress.?Normal affect. Eyes: Pupils equal, round and reactive to light.? ENT: Pharynx normal.?? Neck: Normal inspection.? Neck supple.?? CVS: Heart sounds normal. Sinus bradycardia? Pulses normal.?? Respiratory: No respiratory distress.? Lung sounds clear to auscultation bilaterally?? Abdomen: Soft and non-tender. Normoactive bowel sounds. No pulsatile mass.?? Skin: Skin warm and dry.? Normal skin color.? ? Extremities: No lower extremity edema.? No calf ttp? Neuro: Moves all extremities spontaneously. Sensation intact bilaterally. CN II- XII intact. No focal neuro deficits. Ambulates with normal steady gait. Course Reevaluation(s) Reevaluation #1: Hypertensive urgency responded to single dose of hydralazine IV and continued to downtrend thereafter. Did not require 2nd dosing. Troponin slightly elevated above normal range but delta troponin flat, unlikely ACS. Suspect this is secondary to chronic uncontrolled hypertension. Discussed with patient importance of taking BP medication daily as prescribed and keeping a log of her readings and follow up with her primary care doctor. Reviewed worrisome signs and symptoms that would warrant re-evaluation emergency department. Medications Administered Discontinued Medications Generic Name Dose Route Start Last Admin Trade Name Freq PRN Reason Stop Dose Admin Hydralazine HCl 10 mg 07/06/24 17:21 07/06/24 18:59 Hydralazine Hcl 20 Mg/Ml Vial IVPUSH 07/06/24 17:22 10 mg ONCE ONE Administration Protocol Hydralazine HCl 10 mg 07/06/24 20:43 07/06/24 22:35 Hydralazine Hcl 20 Mg/Ml Vial IVPUSH 07/06/24 20:44 Not Given ONCE ONE Protocol Medical Decision Making Medical Decision Making [facility] Narrative: Patient is a 79-year-old female with past medical history of CAD, NSTEMI, mitral regurgitation, cardiomyopathy, PVD, hypercholesterolemia, hypertension, obesity, anxiety presenting to emergency department for evaluation of uncontrolled hypertension from walk-in clinic as per HPI. She took her home medications at 14:00 including amlodipine-benazepril 5-20 mg and spironolactone 50 mg, however she remains hypertensive 226/82 bradycardic at 51 (which has been seen in the past as well). Will trial management with hydralazine IV, avoiding beta- blockers so as not to result in further bradycardia. Will obtain CBC to evaluate for leukocytosis/ anemia, CMP and lipase to evaluate for abnormal electrolytes /abnormal renal function/ abnormal hepatic/biliary function, EKG and troponin to evaluate for ischemia/ACS. Chest x-ray to evaluate for consolidation/ infiltrate/ mass/ pulmonary congestion and Urinalysis. Differential Diagnosis Differential Diagnoses: The differential diagnosis associated with the presentation includes Hypertensive urgency, hypertensive emergency. Abdominal examination is benign, blood pressure is equal to bilateral arms, no associated chest pain, do not suspect aortic dissection. Additionally with benign abdominal examination have lower suspicion for colonic obstruction as she has had sufficient normal bowel movements since without hematochezia or melena or diarrhea. No associated symptoms, lower suspicion for cystitis, pyelonephritis, hydronephrosis. Admission/Observation Consideration of admission/observation: Escalation of care including admission/observation considered (See narrative above and course narrative for further detail) Lab Data [facility] Lab Attestation statement: I reviewed the patient's lab results. Urinalysis without evidence of infection, microscopic hematuria or proteinuria. CBC without leukocytosis anemia or thrombocytopenia. No significant electrolyte derangement. No BRYAN. 07/06/24 19:13 07/06/24 19:13 Labs: Lab Results 07/06/24 07/06/24 07/06/24 Range/Units 18:22 19:13 21:52 WBC 6.3 (4.8-10.8) X10*3/uL RBC 4.48 (4.20-5.50) X10*6/uL Hgb 13.7 (12.0-16.0) g/dl Hct 40.6 (37.0-47.0) % MCV 90.6 (80.0-98.0) fL MCH 30.6 (27.0-33.0) pg MCHC 33.7 (31.0-35.0) g/dl RDW 13.0 (11.0-16.0) % Plt Count 278 (160-400) X10*3/uL MPV 10.6 (9.4-12.3) fL Immature Gran % (Auto) 0.2 (0.0-0.4) % Neut % (Auto) 63.0 (45-73) % Lymph % (Auto) 30.6 (20-40) % [place] % (Auto) 5.6 (2-11) % Eos % (Auto) 0.3 (0-4) % Baso % (Auto) 0.3 (0-2) % Lymph # (Auto) 1.9 (1.2-4.9) X10*3/uL [place] # (Auto) 0.4 (0.1-1.2) X10*3/uL Eos # (Auto) 0.0 (0.0-0.4) X10*3/uL Baso # (Auto) 0.0 (0.0-0.2) X10*3/uL Abs Immat Gran (auto) 0.01 (0.00-0.03) X10*3/uL Absolute Neuts (auto) 4.0 (2.0-8.3) x10*3/uL Absolute Nucleated RBC 0.000 (0.0-0.012) X10*3/uL Nucleated RBC % (auto) 0.0 (0.0-0.2) /100WBC Sodium 146 H (135-145) mmol/L Potassium 3.8 (3.3-5.1) mmol/L Chloride 108 (96-108) mmol/L Carbon Dioxide 27 (22-29) mmol/L Anion Gap 15 (12-20) BUN 7 L (9-16) mg/dL Creatinine 0.72 (0.5-1.4) mg/dL Estim Creat Clear Calc 67.1 Estimated GFR > 60 Random Glucose 105 (60-115) mg/dL Calcium 9.7 (8.4-10.2) mg/dL Total Bilirubin 0.6 (0.0-1.0) mg/dL AST 23 (5-31) U/L ALT 11 (0-31) U/L Alkaline Phosphatase 92 (39-117) U/L Troponin I High Sens 18.0 H D 17.1 H (<3.5-17.0) ng/L B-Natriuretic Peptide 500 H (<100) pg/mL Total Protein 7.9 (6.5-8.0) g/dL Albumin 4.3 (3.5-5.0) g/dL Lipase 32 (8-78) U/L Urine Color Yellow Urine Appearance Clear Urine pH 7.5 (5.0-9.0) Ur Specific Isabel <= 1.005 (1.005-1.025) Urine Protein Negative (Neg-Trace) mg/dL Urine Glucose (UA) Negative (Negative) mg/dL Urine Ketones Negative (Negative) mg/dL Urine Blood Negative (Negative) Urine Nitrite Negative (Negative) Ur Leukocyte Esterase Trace H (Negative) Urine RBC 0-2 (0-2) /HPF Urine WBC 0-5 (0-5) /HPF Ur Squamous Epith Cells 0-2 (0-2) /HPF Urine Bacteria None Seen (None Seen) Hyaline Casts 0-2 (0-2) /LPF Influenza Type A (PCR) NEGATIVE (Negative) Influenza Type B (PCR) NEGATIVE (Negative) RSV RNA Qual (PCR) NEGATIVE (Negative) SARS-CoV-2 RNA (RT-PCR) NEGATIVE (Negative) Independent Interpretation I performed an independent interpretation of an: EKG Interpretation: Rate: 51 Rhythm:? Sinus bradycardia, LVH pattern Normal P waves.? Normal HILARIA.?? Normal QRS complex.?? ST T wave :??No ST elevation, no ST depression qTC: 447 prior studies:? February of 2023 The study has been interpreted contemporaneously by me. Independent Historian Clinical information obtained from an independent historian. History obtained from or confirmed by: EMS External Record Review External record reviewed: Outpatient record Critical Care Time Critical Care Time Critical Care Time: Yes Total Critical Care Time: 38 Attestation: I personally attest to this critical care time spent taking care of the patient exclusive of all other billable procedures was approximately 38 minutes including initial evaluation of patient, ordering tests, IV hydralazine and re- evaluation, EKG interpretation, medical consultation, documentation, re- evaluation. Discharge Plan Discharge Clinical Impression: Hypertensive urgency Patient Disposition: Home, Self-Care Instructions: Hypertensive Crisis (ED) Additional Instructions: As discussed it is very important that you take your blood pressure medication every day as prescribed by her primary care doctor. Please contact their office to arrange for a follow-up visit this week. Consider keeping a log of your blood pressure readings at home for further evaluation. You may return to emergency department any new or worsening symptoms or concerns. Prescriptions: No Action alprazolam 0.25 mg tablet 0.125 mg PO TID PRN (Reason: anxiety) Qty: 20 0RF rosuvastatin 40 mg tablet 40 mg PO DAILY Qty: 90 2RF albuterol sulfate [Ventolin HFA] 90 mcg/actuation HFA aerosol inhaler 2 puff inhalation Q6H PRN (Reason: shortness of breath or wheezing) Qty: 8.5 3RF spironolactone 50 mg tablet 50 mg PO BID Qty: 180 1RF bisoprolol fumarate 10 mg tablet 20 mg PO DAILY 90 Days Qty: 180 2RF amlodipine-benazepril 5-20 mg capsule 1 cap PO DAILY Qty: 90 1RF (DME) Hand held step stool 0 .ROUTE .MEDSUPPLY (DME) step stool with handle See Rx Instructions .Route .MEDSUPPLY Qty: 1 0RF Rx Instructions: As directed omeprazole 20 mg capsule,delayed release(DR/EC) 20 mg PO DAILY Qty: 90 2RF potassium chloride [Klor-Con M10] 10 mEq tablet,ER particles/crystals 10 meq PO DAILY Qty: 90 2RF sertraline 25 mg tablet 25 mg PO DAILY Qty: 90 2RF lidocaine [Aspercreme (lidocaine)] 4 % adhesive patch,medicated 1 patch topical DAILY PRN (Reason: pain) Qty: 30 0RF aspirin [Adult Low Dose Aspirin] 81 mg tablet,delayed release (DR/EC) 81 mg PO DAILY Qty: 90 3RF (DME) compr.stocking,thigh,reg,large Misc See Rx Instructions .Route Qty: 2 0RF Rx Instructions: As directed 20-30 mm HG (DME) AIR PURIFIER See Rx Instructions .Route .MEDSUPPLY Qty: 1 0RF Rx Instructions: As directed cholecalciferol (vitamin D3) 50 mcg (2,000 unit) capsule 50 mcg PO DAILY 90 Days Qty: 90 3RF Referrals: Meek,Radha Calles MD [Primary Care Provider] - Interventions: ED Discharge Assessment Last Done: 07/06/24 23:05 Discharge Date/Time: 07/06/24 23:15 Print Language: Trinidadian
--- NOTE | 2024-07-06 17:18 | ECG_ITS ---
Test Reason : BRADYCARDIA Blood Pressure : / mmHG Vent. Rate : 051 BPM Atrial Rate : 051 BPM P-R Int : 134 ms QRS Dur : 084 ms QT Int : 486 ms P-R-T Axes : 062 -39 034 degrees QTc Int : 447 ms Sinus bradycardia Left axis deviation Left ventricular hypertrophy with repolarization abnormality ( R in aVL , You product ) Abnormal ECG When compared with ECG of 27-FEB-2023 21:37, No significant change was found Referred By: Fatemeh Tompkins Electronically Signed By:BERE BULLOCK
[2024-07-06 18:35] LABS: Appearance Urine Clear; Color Urine Yellow; Glucose Urine UA Negative (Negative); Leukocyte Esterase Urine Trace (Negative); Nitrite Urine Negative (Negative); PH 7.5 (5.0-9.0); Specific Gravity - Urine <= 1.005 (1.005-1.025); UMIC TRIGGER UACC YES; Urine Blood Negative (Negative); Urine Ketones Negative (Negative); Urine Protein Negative (Neg-Trace)
[2024-07-06 18:46] LABS: Bacteria Urine None Seen (None Seen); Hyaline Casts Urine 0-2 /LPF (0-2); RBC Urine 0-2 /HPF (0-2); Squamous Epithelial Cell Urine 0-2 /HPF (0-2); WBC Urine 0-5 /HPF (0-5)
--- NOTE | 2024-07-06 18:56 | PC.NURSE ---
Alicia RANDHAWA, would like to be called for d/c planning or pt to be admitted
[2024-07-06] MEDS: hydrALAZINE HCl 20 MG/ML VIAL 10 MG IVPUSH (18:59)
[2024-07-06 19:21] LABS: MANUAL DIFF FLAG NO
[2024-07-06 19:22] LABS: Basophils Percent Auto 0.3 % (0-2); Eosinophils Percent Auto 0.3 % (0-4); PLT CLUMP 1; SCAN SMEAR FLAG 1
[2024-07-06 19:24] LABS: Hematocrit 40.6 % (37.0-47.0); Hemoglobin 13.7 g/dl (12.0-16.0); Imm Gran Abs Auto 0.01 X10*3/uL (0.00-0.03); Imm Gran Pct Auto 0.2 % (0.0-0.4); Lymphocytes Absolute Auto 1.9 X10*3/uL (1.2-4.9); Lymphocytes Percent Auto 30.6 % (20-40); Mean Corpuscular HGB Conc 33.7 g/dl (31.0-35.0); Mean Corpuscular Hemoglobin 30.6 pg (27.0-33.0); Mean Corpuscular Volume 90.6 fL (80.0-98.0); Mean Platelet Volume 10.6 fL (9.4-12.3); Monocytes Absolute Auto 0.4 X10*3/uL (0.1-1.2); Monocytes Percent Auto 5.6 % (2-11); Red Blood Count 4.48 X10*6/uL (4.20-5.50)
[2024-07-06 19:39] LABS: Alanine Aminotransferase 11 U/L (0-31); Albumin Level 4.3 g/dL (3.5-5.0); Alkaline Phosphatase 92 U/L (39-117); Anion Gap 15 (12-20); Aspartate Amino Transferase 23 U/L (5-31); Bilirubin Total 0.6 mg/dL (0.0-1.0); Blood Urea Nitrogen 7 mg/dL (9-16); Calcium 9.7 mg/dL (8.4-10.2); Carbon Dioxide 27 mmol/L (22-29); Chloride 108 mmol/L (96-108); Creatinine Clr Calc Pharmacy 67.1; Estimated Glomerular Filt Rate > 60; Glucose Random 105 mg/dL (60-115); Lipase 32 U/L (8-78); Potassium 3.8 mmol/L (3.3-5.1); Sodium 146 mmol/L (135-145); Total Protein 7.9 g/dL (6.5-8.0)
[2024-07-06 19:44] LABS: B Type Natriuretic Peptide 500 pg/mL (<100); Platelet Count 278 X10*3/uL (160-400); White Blood Count 6.3 X10*3/uL (4.8-10.8)
[2024-07-06 19:59] LABS: Influenza A PCR NEGATIVE (Negative); Influenza B PCR NEGATIVE (Negative); Resp Syncy Virus RNA Qual PCR NEGATIVE (Negative); SARS COV2 PCR INHOUSE NEGATIVE (Negative)
[2024-07-06 22:18] LABS: Troponin-I High Sensitivity 17.1 ng/L (<3.5-17.0)
== END 2024-07-06 23:15 | disposition home or self-care (01) ==
PROVIDERS: Nurse Practitioner Family; Emergency Provider Emergency Medicine; PCP Internal Medicine
DX: I16.0 Hypertensive urgency (principal); R00.1 Bradycardia, unspecified; M54.50 Low back pain, unspecified; R42 Dizziness and giddiness; R11.0 Nausea; R26.81 Unsteadiness on feet; R06.02 Shortness of breath; Z03.818 Encounter for observation for suspected exposure to other biological agents ruled out; Z79.899 Other long term (current) drug therapy
CPT/HCPCS: 0241U; 36415; 80053; 81001; 83690; 83880; 84484; 85025; 93005; 96374; 99284; J0360

== ENCOUNTER 2024-07-09 10:30 | Outpatient (AMB) | payer OTHER, SELFPAY ==
[2024-07-09 10:38] VITALS: BP 142/74; PULSE 48; O2SAT 97; BMI 34.4
--- NOTE | 2024-07-09 10:38 | A.OFFPC_ITS ---
Vital Signs 07/09/24 10:38 07/09/24 11:01 Height 5 ft 1 in Weight 182 lb BMI 34.4 BP 142/74 H 160/72 H Blood Pressure Location Lt brachial Lt brachial Position Sitting Sitting Pulse 48 L Pulse Source Pulse Oximeter Pulse Oximetry (%) 97 Oxygen Delivery Method Room Air Intake [place] [facility] [place] Bp Transportation Attendant Required: No Accompanied by: Self / Same As Patient Allergies Penicillins Allergy (Severe, Verified 07/09/24 10:39) DIFFICULTY BREATHING atorvastatin [From Lipitor] Allergy (Unknown, Verified 07/09/24 10:39) Unknown FRUITS Allergy (Intermediate, Uncoded 07/09/24 10:39) ITCHY THROAT, HOARSE VOICE SOMETIMES SOB Medication List - Last Reconciled 07/09/24 by Anna Nazario PA-C [AIR PURIFIER As directed] albuterol sulfate 90 mcg/actuation (Ventolin HFA) 2 puffs inhalation Q6H PRN alprazolam 0.125 mg (1/2 x 0.25 mg) PO TID PRN amlodipine-benazepril 5-20 mg 1 cap PO DAILY aspirin (Adult Low Dose Aspirin) 81 mg PO DAILY bisoprolol fumarate 20 mg (2 x 10 mg) PO DAILY 90 days cholecalciferol (vitamin D3) 50 mcg PO DAILY 90 days compr.stocking,thigh,reg,large As directed 20-30 mm HG [Hand held step stool ] lidocaine 4% (Aspercreme (lidocaine)) 1 patch topical DAILY PRN omeprazole 20 mg PO DAILY potassium chloride ER (Klor-Con M) 10 mEq PO DAILY rosuvastatin 40 mg PO DAILY sertraline 25 mg PO DAILY spironolactone 50 mg PO BID [step stool with handle As directed] Tobacco use date assessed: 07/09/24 Fall risk assessment: No Falls in past year Last assessed Fall Risk: 07/09/24 Dental Screening Dental Screen Date: 07/09/24 Did you have a dental visit in the last 12 months?: Yes Did you have a dental problem in the last 6 months where you did not have access to dental care?: No Was dental information given to patient?: Patient has dentist [place] [facility] [place]p HPI Details 79-year-old obese female with hypertensi on coronary artery disease asthma GERD hypercholesterolemia generalized anxiety disorder peripheral vascular disease coming in for hospital follow up. In review of the notes, patient was seen in and walk-in clinic 07/06/2024 for elevated blood pressure with fatigue and headache patient was hypertensive at 240/100 EMS was called and transported to [facility]. While in the ER patient was given hydralazine IV which blood pressure responded do. Troponins, EKG, chest x-ray were negative and patient was discharged home to follow up with primary care. 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 She states she does not like the side effects of her medications as it turns her tongue white and makes it feel tingly. She does not take the medication with a full glass of water. She does take her pressures at home and has inconsistent readings some within range in some elevated. She has been feeling more fatigued since discharge from the hospital but denies any chest pains or shortness of breath or any other symptoms. [facility] Medical History Peripheral vascular disease Hypokalemia Age-related osteoporosis without current pathological fracture Uncontrolled hypertension COVID-19 vaccine series completed Mitral regurgitation Hypertension Hypercholesterolemia Ischemic colitis Bile salt-induced diarrhea GERD (gastroesophageal reflux disease) Vaginal vault prolapse Anxiety Cardiomyopathy Obesity (BMI 30-39.9) Asthma Coronary artery disease Surgical History History of neck surgery History of thumb surgery History of tubal ligation History of cholecystectomy Family History Father Cancer Mother Cancer Social History Housing: Condominium Alcohol intake: never Patient Tobacco Use Status: Never used Tobacco e-Cigarette/Vaping Use: Never Used Second Hand Smoke Exposure: No service: No Current occupational status: disabled Cognitive needs: No Hearing needs: No Vision needs: Yes Questionnaire PHQ-9 Over the last 2 weeks, how often have you been bothered by any of the following problems? 1. Little interest or pleasure in doing things: not at all 2. Feeling down, depressed, or hopeless: not at all 3. Trouble falling or staying asleep, or sleeping too much: not at all 4. Feeling tired or having little energy: not at all 5. Poor appetite or overeating: not at all 6. Feeling bad about yourself - or that you are a failure or have let yourself or your family down: not at all 7. Trouble concentrating on things, such as reading the newspaper or watching television: not at all 8. Moving or speaking so slowly that other people could have noticed. Or the opposite - being so fidgety or restless that you have been moving around a lot more than usual: not at all 9. Thoughts that you would be better off or of hurting yourself in some way: not at all Total score: 0 Depression Screening Interpretation: Negative Depression Screening Done: Yes Source: Developed by Drs. Caleb Xiao, Donna Torres, Antony Tovar and colleagues, with an educational pao from [employer]. Thrive Questionnaire Date Thrive assessed: 07/09/24 I am a: Patient What is your living situation today?: I have a steady place to live Within the past 12 months, did the food you bought not last and you didn't have the money to get more?: Never true Within the past 12 months, did you worry whether your food would run out before you got money to buy more?: Never true Do you have trouble paying for medicines?: No Do you have trouble getting transportation to medical appointments?: No Do you have trouble paying your heating and electricity bill?: No Do you have trouble taking care of your child, family member or friend?: No Do you have trouble with day-to-day activities such as bathing, preparing meals, shopping, managing finances, etc.?: No Are you currently unemployed and looking for a job?: No Are you interested in more education?: No Please select the resources that you would like help with: None Currently or been in a relationship where the following occur: No concerns reported THRIVE Score: 0 AUDIT C Alcohol Use Questionnaire (AUDIT-C) 1. How often do you have a drink containing alcohol?: Never 2. How many drinks containing alcohol do you have on a typical day when you are drinking?: 1 or 2 (0) 3. How often do you have six or more drinks on one occasion?: Never Total Score: 0 Score Reviewed/Action Taken: No JERALD-7 AMB Questionnaire JERALD-7 Date JERALD - 7 assessed: 07/09/24 Feeling nervous, anxious, or on edge: 0 = Not at all Not being able to stop or control worryin = Not at all Worrying too much about different things: 0 = Not at all Trouble relaxin = Not at all Being so restless that it is hard to sit still: 0 = Not at all Becoming easily annoyed or irritable: 0 = Not at all Feeling afraid as if something awful might happen: 0 = Not at all Total JERALD-7 score (0-4 normal; 5-9 mild; 10-14 moderate; 15-21 severe): 0 Source: Developed by Drs. Caleb Xiao, Donna Torres, Antony Tovar and colleagues, with an educational pao from [employer]. Review of Systems Const Denies chills, Reports fatigue, Denies fever(s) and Denies headache(s) Eyes Reports no additional complaints ENT Denies dizziness and Denies headache(s) Card Denies chest pain, Denies edema, Denies irregular heart rhythm, Denies lightheadedness and Denies dyspnea Resp Denies dyspnea GI Denies abdominal pain Reports no additional complaints Musc Reports no additional complaints Skin/Breast Reports system reviewed and no additional complaints, except as documented Neuro Denies dizziness and Denies headache(s) Psych Reports no additional complaints Endo Reports fatigue Physical exam (Primary Care) Vital Signs: Oxygen Delivery Method Room Air 07/09/24 10:38 BMI result Body Mass Index 34.4 Tobacco/Smoking Status: Tobacco use Status Tobacco use date assessed 12/31/23 07/08/24 09:49 Patient Tobacco Use Status Never used Tobacco 07/08/24 09:49 e-Cigarette/Vaping Use Never Used 07/08/24 09:49 Depression Screening Interpretation: Negative Thrive Assessment: Date of Thrive Assessment Date Thrive assessed 12/31/23 07/08/24 09:49 Currently or been in a relationship where the following occur: No concerns reported Const General: cooperative, healthy appearing, comfortable and no acute distress Orientation/consciousness: patient oriented x3 HENMT Head: Yes normocephalic Ears: hearing grossly normal bilaterally General nose exam: Normal external nose present Eyes General: appearance normal, both eyes and all related structures Conjunctivae: conjunctivae normal Neck Neck: Yes full ROM and Yes no lymphadenopathy Resp Effort & Inspection: normal respiratory effort Auscultation: clear to auscultation bilaterally, no crackles, no rales, no rhonchi and no wheezes Cardio Rate: regular rate Rhythm: regular rhythm Skin General skin exam: no rashes or lesions noted Neuro General: patient oriented x3 Gait exam (Neuro): Normal gait present Extrem General: Yes normal to inspection, Yes full ROM and No edema Psych Affect: normal affect Attitude: cooperative Insight: Good insight present (Psych) Judgement: Good judgement present (Psych) Assessment and Plan Assessment & Plan (1) Resistant hypertension: Code(s): I10 - Essential (primary) hypertension Plan: Patient has been taking her medications inconsistently throughout the last month or so she has been taking her medications as prescribed since discharge from the hospital. Her blood pressure readings at home are labile most likely due to technique and taking blood pressure as well as inconsistency of medications. Strongly advised patient to take medications as prescribed. Patient would benefit from meeting with nurse navigator on appropriate technique to take blood pressure, scheduled for next week. Advised patient to take medications with full glass of water to avoid side effects. Advised patient to continue taking blood pressure readings and if pressures are persistently over 140/90 then to call the office to reach out for an earlier appointment. Otherwise if blood pressures are within goal may follow up at next appointment. Plan This note was constructed using voice recognition software. While every effort has been made to ensure accuracy and scouring pads supervisor, still areas may have been included sometimes these areas may affect the content or meeting of the given symptoms. Total time spent caring for the patient today was 30 minutes. This includes time spent before the visit reviewing the chart, time spent during the visit, and time spent after the visit and documentation. Coding Level of Care Code Est Pt Level 4 (94801) Diagnoses Resistant hypertension I10
[2024-07-09 11:01] VITALS: BP 160/72
== END 2024-07-09 11:17 | disposition home or self-care (01) ==
PROVIDERS: PCP Internal Medicine
DX: I10 Essential (primary) hypertension (principal)
CPT/HCPCS: 99214

== ENCOUNTER → 2024-07-16 09:51 | Outpatient (BNVA) | payer OTHER, SELFPAY | PROVIDERS: PCP Internal Medicine ==

== ENCOUNTER 2024-09-10 22:27 | Inpatient (IN) | payer OTHER, SELFPAY ==
--- NOTE | 2024-09-10 | ECG_ITS ---
Test Reason : ABD PAIN Blood Pressure : / mmHG Vent. Rate : 093 BPM Atrial Rate : 093 BPM P-R Int : 152 ms QRS Dur : 092 ms QT Int : 398 ms P-R-T Axes : 010 -38 079 degrees QTc Int : 494 ms Sinus rhythm with occasional Premature ventricular complexes Left axis deviation Possible Anterolateral infarct , age undetermined Abnormal ECG When compared with ECG of 06-JUL-2024 18:29, Premature ventricular complexes are now Present Vent. rate has increased BY 42 BPM Borderline criteria for Anterolateral infarct are now Present QT has lengthened Referred By: Generic ED Physician Electronically Signed By:Evan Dejesus
--- NOTE | ~2024-09-10 | CT_ITS ---
EXAMINATION: CT ABDOMEN AND PELVIS WITH CONTRAST CLINICAL INFORMATION: Epigastric pain. Vomiting. COMPARISON: Renal ultrasound 12/31/2022. TECHNIQUE: Multidetector volumetric images were obtained from the superior aspect of the liver through the pubic symphysis following administration 85 mL of Omnipaque 350 intravenous contrast. Sagittal and coronal reformatted images were obtained on the technologist's workstation. Oral contrast: No This CT examination was performed using dose optimization techniques as appropriate, variously including the following: *Automated exposure control *Adjustment of mA and/or kV according to patient size (this includes techniques or standardized protocols for targeted exams where dose is matched to indication/reason for exam; i.e. extremities or head) *Use of iterative reconstruction technique DLP: 627 mGy-cm FINDINGS: LUNG BASES: The visualized lung bases are unremarkable. LIVER, GALLBLADDER, AND BILIARY TREE: 3 mm punctate benign-appearing calcification is present in posterior segment right lobe of the liver and is of uncertain clinical significance. The liver is normal in size and capsular contour. No intrahepatic bile duct dilatation. The gallbladder is not visualized and may be surgically absent. PANCREAS: Unremarkable. SPLEEN: Unremarkable. ADRENAL GLANDS: Unremarkable. KIDNEYS AND URETERS: A small number of scattered subcentimeter rounded low-density foci are noted in the kidneys are too small to severely characterize but most likely represent benign, incidental simple cysts and more no additional imaging follow-up on the basis of this examination. No hydronephrosis or nephrolithiasis identified. No ureterectasis. BLADDER: Normal in appearance. GASTROINTESTINAL TRACT: Normal appearance of the appendix. No intestinal dilatation or mural thickening. No free intraperitoneal fluid or gas collections. No inflammatory changes of the sigmoid or small bowel mesentery. Normal appearance of the stomach. Normal appearance of the duodenum. ABDOMINAL WALL: A right parasagittal epigastric abdominal wall hernia measures 2 cm at its neck and contains fat which herniates in the subcutaneous region over an area measuring 5.5 cm in diameter. No associated inflammatory changes. Lower anterior abdominal wall suture and/or mesh graft anchors are noted. LYMPH NODES: Normal. VASCULAR: Unremarkable. PELVIC VISCERA: Uterus appears atrophic. No adnexal lesions. OSSEOUS STRUCTURES: No suspicious skeletal abnormalities identified. CT/CT abdomen pelvis w IV con IMPRESSION: 1. No acute abnormalities identified. 2. Status post cholecystectomy. No biliary duct dilatation. 3. Normal appearance of the appendix. No free intraperitoneal fluid or gas collections. 4. Fat-containing right parasagittal epigastric abdominal wall hernia. No associated inflammatory changes. Electronically signed by: Eligio Campbell MD 09/11/2024 02:32 AM BALAJI SHAIKH
[2024-09-10 22:31] VITALS: BP 170/100; PULSE 100; O2SAT 97
[2024-09-10 22:34] VITALS: BP 153/61; PULSE 81; RESP 20; TEMP 36.8; O2SAT 99; BMI 34.7
[2024-09-10 23:00] LABS: Basophils Percent Auto 0.3 % (0-2); Eosinophils Percent Auto 0.1 % (0-4); Hematocrit 34.7 % (37.0-47.0); Imm Gran Abs Auto 0.02 X10*3/uL (0.00-0.03); Imm Gran Pct Auto 0.2 % (0.0-0.4); Lymphocytes Percent Auto 22.7 % (20-40); MANUAL DIFF FLAG NO; Mean Corpuscular HGB Conc 34.6 g/dl (31.0-35.0); Mean Corpuscular Hemoglobin 30.8 pg (27.0-33.0); Mean Corpuscular Volume 89.2 fL (80.0-98.0); Mean Platelet Volume 9.6 fL (9.4-12.3); Monocytes Absolute Auto 0.5 X10*3/uL (0.1-1.2); Monocytes Percent Auto 5.9 % (2-11); Neutrophils Absolute Auto 6.1 x10*3/uL (2.0-8.3); Neutrophils Percent Auto 70.8 % (45-73); Platelet Count 272 X10*3/uL (160-400); Red Blood Count 3.89 X10*6/uL (4.20-5.50); Red Cell Distribution Width 12.8 % (11.0-16.0); White Blood Count 8.6 X10*3/uL (4.8-10.8)
[2024-09-10 23:13] LABS: Alanine Aminotransferase 14 U/L (0-31); Alkaline Phosphatase 81 U/L (39-117); Anion Gap 14 (12-20); Aspartate Amino Transferase 34 U/L (5-31); Bilirubin Total 0.8 mg/dL (0.0-1.0); Blood Urea Nitrogen 15 mg/dL (9-16); Calcium 9.2 mg/dL (8.4-10.2); Carbon Dioxide 24 mmol/L (22-29); Chloride 106 mmol/L (96-108); Creatinine Clr Calc Pharmacy 56.2; Estimated Glomerular Filt Rate > 60; Glucose Random 125 mg/dL (60-115); Lipase 21 U/L (8-78); Sodium 141 mmol/L (135-145)
--- NOTE | 2024-09-11 01:07 | ED_ITS ---
HPI - Nausea/Vomiting/Diarrhea General Chief complaint: Nausea/Vomiting/Diarrhea Stated complaint: abd pain vomiting and bloody stool Time Seen by Provider: 09/11/24 01:04 Source: patient Mode of arrival: ambulatory Limitations: language barrier (Patient's 1st language is [place], [facility] [facility] [place] used) History of Present Illness ED Provider: Dr. Kwadwo Mittal HPI Narrative: 79-year-old female with history of coronary artery disease with cardiomyopathy, hypertension asthma GERD hypercholesterolemia , anxiety, cholecystectomy, abdominal hernia who presents emergency department for evaluation of abdominal pain, nausea, vomiting and bloody diarrhea. Patient states that she came home from shopping around 16:00 hours and developed pain in her abdomen. She describes the pain is a gas like pain in hunger pain that she has had in the past. She then ate a turkey sandwich and shortly after eating the sandwich she began vomiting. She states she vomited large amounts x3. She also had 3 diarrheal stools which she states were bloody. Patient states that the pain was greater than 10/10. The pain has been constant and here in the emergency department she states the pain is 7/10. The patient does have an abdominal wall hernia and she states that initially the hernia got bigger after vomiting but now believes that the hernia is smaller. She states however the area of her hernia is very tender to the touch. She denied fever, chills, chest pain, shortness of breath, frequency, urgency or dysuria Related Data Home Medications ?Medication ?Instructions ?Recorded ?Confirmed Hand held step stool 06/16/24 07/09/24 Previous Rx's ?Medication ?Instructions ?Recorded alprazolam 0.25 mg tablet 0.125 mg (1/2 x 0.25 mg) PO TID 09/12/20 PRN anxiety #20 tabs compr.stocking,thigh,reg,large #2 ea 11/22/21 AIR PURIFIER #1 ea 01/21/23 lidocaine 4 % topical patch 1 patch topical DAILY PRN pain #30 09/24/23 (Aspercreme (lidocaine)) ea albuterol sulfate 90 mcg/actuation 2 puff inhalation Q6H PRN 10/14/23 aerosol inhaler (Ventolin HFA) shortness of breath or wheezing #8.5 grams rosuvastatin 40 mg tablet 40 mg PO DAILY #90 tabs 10/14/23 cholecalciferol (vitamin D3) 50 50 mcg PO DAILY 90 days #90 caps 01/20/24 mcg (2,000 unit) capsule aspirin 81 mg tablet,delayed 81 mg PO DAILY #90 tabs 04/08/24 release (Adult Low Dose Aspirin) bisoprolol fumarate 10 mg tablet 20 mg (2 x 10 mg) PO DAILY 90 days 05/05/24 #180 tabs step stool with handle #1 ea 06/16/24 omeprazole 20 mg capsule,delayed 20 mg PO DAILY #90 caps 06/26/24 release potassium chloride 10 mEq 10 meq PO DAILY #90 tabs 06/30/24 tablet,extended release(part/cryst) (Klor-Con M) sertraline 25 mg tablet 25 mg PO DAILY #90 tabs 06/30/24 amlodipine 10 mg-benazepril 40 mg 1 cap PO DAILY #30 caps 07/16/24 capsule spironolactone 50 mg tablet 50 mg PO BID #180 tabs 07/27/24 Allergies Allergy/AdvReac Type Severity Reaction Status Date / Time Penicillins Allergy Severe DIFFICULTY Verified 09/10/24 22:36 BREATHING atorvastatin [From Lipitor] Allergy Unknown Unknown Verified 09/10/24 22:36 FRUITS Allergy Intermediate ITCHY Uncoded 09/10/24 22:36 THROAT, HOARSE VOICE SOMETIMES SOB Review of Systems 2 Review of Systems: Yes all other systems are reviewed and are negative [facility] Past Medical History Medical History Peripheral vascular disease Hypokalemia Age-related osteoporosis without current pathological fracture Uncontrolled hypertension COVID-19 vaccine series completed Mitral regurgitation Hypertension Hypercholesterolemia Ischemic colitis Bile salt-induced diarrhea GERD (gastroesophageal reflux disease) Vaginal vault prolapse Anxiety Cardiomyopathy Obesity (BMI 30-39.9) Asthma Coronary artery disease Surgical History History of neck surgery History of thumb surgery History of tubal ligation History of cholecystectomy Family History Family History Father Cancer Mother Cancer Social History Social History Housing: Condominium Alcohol intake: never Patient Tobacco Use Status: Never used Tobacco e-Cigarette/Vaping Use: Never Used Second Hand Smoke Exposure: No Advance Directives: No Advance Directives Information Provided: Yes service: No Current occupational status: disabled Cognitive needs: No Hearing needs: No Vision needs: Yes Physical Exam 2 Vital Signs: Vital Signs: Last Vital Signs Temp 97.8 F 09/11/24 02:21 Pulse 86 09/11/24 02:21 Resp 16 09/11/24 02:21 BP 129/56 L 09/11/24 02:21 Pulse Ox 95 09/11/24 02:21 O2 Del Method Room Air 09/11/24 02:21 BMI result Body Mass Index 34.7 Vital signs revealed an elevated blood pressure of 153/61 Exam: General: Awake, alert in no distress, weight 83.3 kg, elevated BMI 34.7 kg per m2 Head: Normocephalic, atraumatic EENT: PERRL, Lids normal, sclera normal, conjunctiva normal, nose normal , ears normal, throat without erythema or exudates Neck: Supple, no adenopathy Lung: breath sounds symmetric, no wheezing, rales or rhonchi Chest: symmetric movement, nontender Heart: regular rate and rhythm, normal S1, S2 no murmurs or rubs Abdomen: Obese, distended with normoactive bowel sounds, patient does have a midline hernia with severe tenderness palpation over the hernia, no rebound, no voluntary or involuntary guarding Rectal: No external hemorrhoids noted, sphincter tone normal, loose red stool which is strongly Hemoccult positive Back: no vertebral tenderness, no CVAT Extremities: no deformities, moves all extremities symmetrically Neuro: Awake, alert, oriented, normal speech, cranial nerves intact, moves all extremities symmetrically Psych: Pleasant, cooperative Medications Administered Discontinued Medications Generic Name Dose Route Start Last Admin Trade Name Freq PRN Reason Stop Dose Admin Hydromorphone HCl 0.5 mg 09/11/24 01:32 09/11/24 01:50 Hydromorphone Hcl 1 Mg/Ml Syringe IVPUSH 09/11/24 01:33 0.5 mg ONCE STA Administration Protocol Hydromorphone HCl 0.5 mg 09/11/24 03:22 09/11/24 03:26 Hydromorphone Hcl 0.5 Mg/0.5 Ml Syringe IVPUSH 11/15/24 03:23 0.5 mg ONCE ONE Administration Protocol Sodium Chloride 1,000 mls @ 999 mls/hr 09/11/24 01:32 09/11/24 01:50 Ns IV 09/11/24 02:32 999 mls/hr .Q1H1M STA Administration Iohexol 85 ml 09/11/24 02:04 09/11/24 02:05 Iohexol 350 Mg/Ml 100 Ml Infus..Btl IV 09/11/24 02:05 85 ml ONCE ONE Administration Ondansetron HCl 4 mg 09/11/24 01:32 09/11/24 01:50 Ondansetron Hcl 4 Mg/2 Ml Vial IVPUSH 09/11/24 01:33 4 mg ONCE ONE Administration Ondansetron HCl 4 mg 09/11/24 03:21 09/11/24 03:26 Ondansetron Hcl 4 Mg/2 Ml Vial IVPUSH 09/11/24 03:22 4 mg ONCE ONE Administration Medical Decision Making Medical Decision Making MDM Narrative: 79-year-old female with history of coronary artery disease with cardiomyopathy, hypertension asthma GERD hypercholesterolemia , anxiety, cholecystectomy, abdominal hernia who presents emergency department for evaluation of abdominal pain, nausea, vomiting and bloody diarrhea which came on suddenly around 16:00 hours, was worse after eating a sandwich. Patient had multiple episodes of vomiting and bloody diarrheal stool. Patient's pain was greater than 10/10 in his currently 7/10. Vital signs were normal. Physical examination did reveal an obese abdomen with a midline hernia which was very tender to palpation and not reducible. Differential diagnosis: ?Includes but is not limited to incarcerated hernia, ischemic bowel, pancreatitis, diverticulitis, lower GI bleed, viral syndrome, anemia, electrolyte abnormalities Course: 01:39 My interpretation patient's laboratory evaluation is as follows: WBC normal 8600. Anemia with an H&H of 12 and 34.7. Potassium low 3.0. Glucose elevated 126. AST elevated 34. Lipase was normal at 21. Ordered a CT scan of the abdomen pelvis with IV contrast to further evaluate the patient's abdominal pain. I also ordered Dilaudid 0.5 mg IV, Zofran 4 mg IV and normal saline x1 L . 03:36 CT scan did not reveal any acute findings to explain the patient's pain however the patient does have a parasagittal epigastric abdominal wall hernia right parasagittal epigastric abdominal wall hernia measures 2 cm at its neck and contains fat which herniates in the subcutaneous region over an area measuring 5.5 cm in diameter. Patient was still complaining of abdominal pain nausea and has been vomiting. Patient was ordered to get Dilaudid 0.5 mg IV and Zofran 4 mg IV. Also she was given Reglan 5 mg IV for her persistent nausea and vomiting. Re-examination did reveal tenderness with palpation over the hernia which is unchanged. Patient however did have more dark blood per rectum. I ordered repeat CBC and type and screen. Given these findings, believe the patient needs to be admitted for further evaluation of your abdominal pain and lower GI bleed. I did discuss admission over tiger text with the covering hospitalist, Dr. Liang. Admission/Observation Consideration of admission/observation: Escalation of care including admission/observation considered (Yes) My independent interpretation patient's 12 EKG done at 22:48 hours is as follows: Normal sinus rhythm with a rate of 93, no ST segment elevation, less than [address] segment depression in 1 and aVL, poor R-wave progression V1 through V3, nonspecific T-wave abnormalities, occasional PVC, no PACs. Compared to EKG dated 07/06/[address] segment depression in 1 in aVL is new, poor R-wave progression is unchanged, PVC is new. Lab Data MDM Lab Attestation statement: I reviewed the patient's lab results. 09/10/24 22:54 09/10/24 22:54 Labs: Lab Results 09/10/24 09/11/24 Range/Units 22:54 02:10 WBC 8.6 (4.8-10.8) X10*3/uL RBC 3.89 L (4.20-5.50) X10*6/uL Hgb 12.0 (12.0-16.0) g/dl Hct 34.7 L (37.0-47.0) % MCV 89.2 (80.0-98.0) fL MCH 30.8 (27.0-33.0) pg MCHC 34.6 (31.0-35.0) g/dl RDW 12.8 (11.0-16.0) % Plt Count 272 (160-400) X10*3/uL MPV 9.6 (9.4-12.3) fL Immature Gran % (Auto) 0.2 (0.0-0.4) % Neut % (Auto) 70.8 (45-73) % Lymph % (Auto) 22.7 (20-40) % Wise % (Auto) 5.9 (2-11) % Eos % (Auto) 0.1 (0-4) % Baso % (Auto) 0.3 (0-2) % Lymph # (Auto) 2.0 (1.2-4.9) X10*3/uL [place] # (Auto) 0.5 (0.1-1.2) X10*3/uL Eos # (Auto) 0.0 (0.0-0.4) X10*3/uL Baso # (Auto) 0.0 (0.0-0.2) X10*3/uL Abs Immat Gran (auto) 0.02 (0.00-0.03) X10*3/uL Absolute Neuts (auto) 6.1 (2.0-8.3) x10*3/uL Absolute Nucleated RBC 0.000 (0.0-0.012) X10*3/uL Nucleated RBC % (auto) 0.0 (0.0-0.2) /100WBC Sodium 141 (135-145) mmol/L Potassium 3.0 L D (3.3-5.1) mmol/L Chloride 106 (96-108) mmol/L Carbon Dioxide 24 (22-29) mmol/L Anion Gap 14 (12-20) BUN 15 (9-16) mg/dL Creatinine 0.82 (0.5-1.4) mg/dL Estim Creat Clear Calc 56.2 Estimated GFR > 60 Random Glucose 125 H (60-115) mg/dL Calcium 9.2 (8.4-10.2) mg/dL Total Bilirubin 0.8 (0.0-1.0) mg/dL AST 34 H (5-31) U/L ALT 14 (0-31) U/L Alkaline Phosphatase 81 (39-117) U/L Total Protein 7.0 (6.5-8.0) g/dL Albumin 4.0 (3.5-5.0) g/dL Lipase 21 (8-78) U/L Stool Occult Blood POSITIVE (NEGATIVE) Independent Interpretation I performed an independent interpretation of an: EKG Radiology Impression Discussion of test interpretation with radiology: I have reviewed the radiologist's reading. Radiologist Impression: CT ABDOMEN AND PELVIS WITH CONTRAST CLINICAL INFORMATION: Epigastric pain. Vomiting. COMPARISON: Renal ultrasound 12/31/2022. FINDINGS: LUNG BASES: The visualized lung bases are unremarkable. LIVER, GALLBLADDER, AND BILIARY TREE: 3 mm punctate benign-appearing calcification is present in posterior segment right lobe of the liver and is of uncertain clinical significance. The liver is normal in size and capsular contour. No intrahepatic bile duct dilatation. The gallbladder is not visualized and may be surgically absent. PANCREAS: Unremarkable. SPLEEN: Unremarkable. ADRENAL GLANDS: Unremarkable. KIDNEYS AND URETERS: A small number of scattered subcentimeter rounded low-density foci are noted in the kidneys are too small to severely characterize but most likely represent benign, incidental simple cysts and more no additional imaging follow-up on the basis of this examination. No hydronephrosis or nephrolithiasis identified. No ureterectasis. BLADDER: Normal in appearance. GASTROINTESTINAL TRACT: Normal appearance of the appendix. No intestinal dilatation or mural thickening. No free intraperitoneal fluid or gas collections. No inflammatory changes of the sigmoid or small bowel mesentery. Normal appearance of the stomach. Normal appearance of the duodenum. ABDOMINAL WALL: A right parasagittal epigastric abdominal wall hernia measures 2 cm at its neck and contains fat which herniates in the subcutaneous region over an area measuring 5.5 cm in diameter. No associated inflammatory changes. Lower anterior abdominal wall suture and/or mesh graft anchors are noted. LYMPH NODES: Normal. VASCULAR: Unremarkable. PELVIC VISCERA: Uterus appears atrophic. No adnexal lesions. OSSEOUS STRUCTURES: No suspicious skeletal abnormalities identified. IMPRESSION: 1. No acute abnormalities identified. 2. Status post cholecystectomy. No biliary duct dilatation. 3. Normal appearance of the appendix. No free intraperitoneal fluid or gas collections. 4. Fat-containing right parasagittal epigastric abdominal wall hernia. No associated inflammatory changes. Electronically signed by: Eligio Campbell MD 09/11/2024 02:32 AM [facility] Dictated By: Eligio Campbell MD Discharge Plan Discharge Clinical Impression: Acute lower GI bleeding Abdominal pain Qualifiers: Abdominal location: epigastric Qualified Code(s): R10.13 - Epigastric pain Patient Disposition: Admitted As Inpatient Print Language: Kazakh
[2024-09-11] MEDS: 0.9 % Sodium Chloride 1,000 ML 999 ML IV (01:50)
[2024-09-11] MEDS: HYDROmorphone HCl 1 MG/ML SYRINGE 0.5 MG IVPUSH (01:50)
[2024-09-11] MEDS: ondansetron HCL 4 MG/2 ML VIAL IVPUSH ×2 (01:50→03:26)
[2024-09-11] MEDS: iohexoL 350 MG/ML 100 ML INFUS..BTL 85 ML IV (02:05)
[2024-09-11 02:15] LABS: OBS Int Ctl Valid YES; OBS1 POSITIVE (NEGATIVE)
[2024-09-11 02:21] VITALS: BP 129/56; PULSE 86; RESP 16; TEMP 36.6; O2SAT 95
[2024-09-11] MEDS: HYDROmorphone HCl 0.5 MG/0.5 ML SYRINGE IVPUSH (03:26)
[2024-09-11 04:00] LABS: MANUAL DIFF FLAG NO
[2024-09-11 04:01] LABS: Basophils Percent Auto 0.4 % (0-2); Eosinophils Percent Auto 0.1 % (0-4); Hemoglobin 12.1 g/dl (12.0-16.0); Imm Gran Abs Auto 0.02 X10*3/uL (0.00-0.03); Imm Gran Pct Auto 0.2 % (0.0-0.4); Lymphocytes Absolute Auto 1.8 X10*3/uL (1.2-4.9); Lymphocytes Percent Auto 21.4 % (20-40); Mean Corpuscular HGB Conc 34.6 g/dl (31.0-35.0); Mean Corpuscular Hemoglobin 31.2 pg (27.0-33.0); Mean Corpuscular Volume 90.2 fL (80.0-98.0); Mean Platelet Volume 9.5 fL (9.4-12.3); Monocytes Absolute Auto 0.5 X10*3/uL (0.1-1.2); Monocytes Percent Auto 5.9 % (2-11); Platelet Count 263 X10*3/uL (160-400); Red Blood Count 3.88 X10*6/uL (4.20-5.50); Red Cell Distribution Width 12.8 % (11.0-16.0); White Blood Count 8.3 X10*3/uL (4.8-10.8)
--- NOTE | 2024-09-11 04:03 | PM.IMHP ---
History of Present Illness Date of Service: 09/11/24 Chief Complaint: Blood in stool This is a 79-year-old female with pertinent history of mood disorder, hypertension, gastroesophageal reflux disease, mixed hyperlipidemia, coronary artery disease, asthma not on home oxygen who presents to the emergency department for evaluation of blood in stools. Patient states she ate a turkey sandwich at 15:00 on the day of presentation. Around 16:00, patient started having nonbloody emesis and bloody diarrhea. Patient also complaining of generalized abdominal discomfort which is constant, nonradiating and without any relieving factors. She has had multiple episodes of nonbloody emesis throughout the day. Initially had blood mixed with stools but subsequently passed doroteo blood through her rectum, multiple episodes of this on the day of presentation as well. No history of similar complaints in the past. Did have a screening colonoscopy a while ago but does not remember the details. Is not on anticoagulation. Admits chills but no documented fever. No chest pain, palpitations, shortness of breath, changes in urinary habits. The patient is [place] speaking and history obtained with the help of japanese interpreter. In the emergency department, patient resuscitated with IV crystalloids. Stool occult blood noted to be positive. Hemoglobin stable Review of Systems Constitutional: Constitutional: Reports fatigue Cardiovascular: Cardiovascular: Reports no additional cardiovascular complaints Respiratory: Respiratory: Reports no additional respiratory complaints Gastrointestinal: Gastrointestinal: Reports hematochezia, Reports loose stools, Reports nausea and Reports vomiting Genitourinary: Genitourinary: Reports no additional female genitourinary complaints Endocrine: Endocrine: Reports fatigue [facility] Medical History Peripheral vascular disease Hypokalemia Age-related osteoporosis without current pathological fracture Uncontrolled hypertension COVID-19 vaccine series completed Mitral regurgitation Hypertension Hypercholesterolemia Ischemic colitis Bile salt-induced diarrhea GERD (gastroesophageal reflux disease) Vaginal vault prolapse Anxiety Cardiomyopathy Obesity (BMI 30-39.9) Asthma Coronary artery disease Family History Father Cancer Mother Cancer Surgical History History of neck surgery History of thumb surgery History of tubal ligation History of cholecystectomy Social History Housing: Condominium Alcohol intake: never Patient Tobacco Use Status: Never used Tobacco e-Cigarette/Vaping Use: Never Used Second Hand Smoke Exposure: No Advance Directives: No Advance Directives Information Provided: Yes service: No Current occupational status: disabled Cognitive needs: No Hearing needs: No Vision needs: Yes Meds Allergies Allergy/AdvReac Type Severity Reaction Status Date / Time Penicillins Allergy Severe DIFFICULTY Verified 09/10/24 22:36 BREATHING atorvastatin [From Lipitor] Allergy Unknown Unknown Verified 09/10/24 22:36 FRUITS Allergy Intermediate ITCHY Uncoded 09/10/24 22:36 THROAT, HOARSE VOICE SOMETIMES SOB Home Medications ?Medication ?Instructions ?Recorded ?Confirmed ?Last Taken ?Type Hand held step stool 06/16/24 07/09/24 Unknown History Physical Exam Vital Signs and Narrative: Vital Signs: Last Vital Signs Temp 97.8 F 09/11/24 02:21 Pulse 86 09/11/24 02:21 Resp 16 09/11/24 02:21 BP 129/56 L 09/11/24 02:21 Pulse Ox 95 09/11/24 02:21 O2 Del Method Room Air 09/11/24 02:21 BMI result Body Mass Index 34.7 Elderly female lying in bed in no distress Neck supple, no JVD Regular rate and rhythm, S1-S2 heard Regular breath sounds bilaterally, no wheezing or crackles appreciated Abdomen with generalized tenderness, no rigidity, no rebound tenderness Patient is awake, alert and oriented to self, place, time and person ; no focal motor deficit Psych: Normal mood No pedal edema Results Labs 09/11/24 03:56 09/10/24 22:54 Labs: Laboratory Results - last 24 hr 09/10/24 09/11/24 09/11/24 22:54 02:10 03:56 MCV 89.2 90.2 MCH 30.8 31.2 MCHC 34.6 34.6 RDW 12.8 12.8 Plt Count 272 263 MPV 9.6 9.5 Immature Gran % (Auto) 0.2 0.2 Neut % (Auto) 70.8 72.0 Lymph % (Auto) 22.7 21.4 [place] % (Auto) 5.9 5.9 Eos % (Auto) 0.1 0.1 Baso % (Auto) 0.3 0.4 Lymph # (Auto) 2.0 1.8 [place] # (Auto) 0.5 0.5 Eos # (Auto) 0.0 0.0 Baso # (Auto) 0.0 0.0 Abs Immat Gran (auto) 0.02 0.02 Absolute Neuts (auto) 6.1 6.0 Absolute Nucleated RBC 0.000 0.000 Nucleated RBC % (auto) 0.0 0.0 Anion Gap 14 Estim Creat Clear Calc 56.2 Estimated GFR > 60 Random Glucose 125 H Calcium 9.2 Total Bilirubin 0.8 AST 34 H ALT 14 Alkaline Phosphatase 81 Total Protein 7.0 Albumin 4.0 Lipase 21 Stool Occult Blood POSITIVE Imaging Radiologist's Impressions: Impressions Abdomen/Pelvis CT 09/11/24 01:32 IMPRESSION: 1. No acute abnormalities identified. 2. Status post cholecystectomy. No biliary duct dilatation. 3. Normal appearance of the appendix. No free intraperitoneal fluid or gas collections. 4. Fat-containing right parasagittal epigastric abdominal wall hernia. No associated inflammatory changes. Electronically signed by: Eligio Campbell MD 09/11/2024 02:32 AM [facility] [place] [place] Assessment and Plan (1) Acute GI bleeding: Status: Acute Plan This is a 79-year-old female with pertinent history of mood disorder, hypertension, gastroesophageal reflux disease, mixed hyperlipidemia, coronary artery disease, asthma not on home oxygen who presents to the emergency department for evaluation of blood in stools. #. Acute GI bleed, abdominal pain and intractable vomiting: Will admit patient with cardiac monitoring. Keep patient NPO. Consulting Gastroenterology. Stool studies pending. CT abdomen/pelvis without any acute abnormality. Closely monitor H&H #. Hypokalemia due to GI losses: Repleted #. Mood disorder: Continue home mood stabilizers once able to take p.o. #. Mixed hyperlipidemia: On statin #. Coronary artery disease: Hold aspirin in the setting of GI bleed. #. Hypertension: Hold antihypertensives until stabilized Med rec pending DVT prophylaxis: Mechanical Full code Admit as inpatient and will require two night minimum hospital stay for close hemodynamic monitoring (as above), which is not possible in a lesser acute setting. Specialist consult pending Quality Stroke Does the patient have a stroke diagnosis?: No VTE Prior VTE?: No VTE Risk Level:: Medical - moderate - high VTE Device Contraindication: N/A - Device Ordered VTE Drug Contraindication: Treatment Not Indicated
[2024-09-11] MEDS: Metoclopramide HCl 10 MG/2 ML VIAL 5 MG IVPUSH (04:17)
[2024-09-11] MEDS: Potassium Chloride/H20 10 MEQ/100 ML PIGGYBACK 100 MEQ IV ×4 (04:53→08:32)
[2024-09-11 06:28] VITALS: BP 130/52; PULSE 85; RESP 12; TEMP 36.6; O2SAT 98
[2024-09-11] MEDS: Pantoprazole Sodium 40 MG/10 ML VIAL IVPUSH ×2 (07:05→15:17)
--- NOTE | 2024-09-11 07:38 | PM.GICN ---
History of Present Illness Data of Consult Service Date: 09/11/24 Requesting physician: Paco Liang Primary Care Provider: Radha Eden MD HPI Reason for consult: Gi Bleeding 79 year old Estonian-speaking female with mood disorder, hypertension, gastroesophageal reflux disease, mixed hyperlipidemia, coronary artery disease, asthma not on home oxygen seen at [facility] on 09/11/24 for evaluation of nausea, vomiting, diarrhea with blood in stools. History obtained with the help of heavy duty truck mechanic, Thad. Patient states she ate a Cheese and Ham sandwich at 15:00 on 09/10/24. Around 16:00, patient started having generalized abdominal discomfort, nonbloody emesis and bloody diarrhea. She has had multiple episodes of nonbloody emesis throughout the day. Initially had blood mixed with stools but subsequently passed doroteo blood through her rectum, multiple episodes of this on the day of presentation as well. Admits chills but no documented fever. Pt denies being on oral anticoagulation. Pt reports she is feeling better today and denies abd pain at present. Last BM was at 9 am this morning and denies any rectal bleeding since then. Repeat CBC showed stable H & H. Of note, pt admitted in 2018 with similar symptoms and left sided colonoscopy showed ischemic colitis 09/11/[address] SCAN SHOWED: 1. No acute abnormalities identified. 2. Status post cholecystectomy. No biliary duct dilatation. 3. Normal appearance of the appendix. No free intraperitoneal fluid or gas collections. 4. Fat-containing right parasagittal epigastric abdominal wall hernia. No associated inflammatory changes. 09/2015 patient had a colonoscopy by Dr. Austin which revealed few scattered diverticuli and no mucosal abnormalities. 12/2017 Pt was admitted with LGI bleeding and left sided colonoscopy showed circumferential submucosal hemorrhagic change suggestive of ischemic colitis. Review of Systems Constitutional: Constitutional: Reports fatigue Cardiovascular: Cardiovascular: Reports no additional cardiovascular complaints Respiratory: Respiratory: Reports no additional respiratory complaints Gastrointestinal: Gastrointestinal: Reports hematochezia, Reports loose stools, Reports nausea and Reports vomiting Genitourinary: Genitourinary: Reports no additional female genitourinary complaints Endocrine: Endocrine: Reports fatigue PMFSH Past Medical History Medical History Peripheral vascular disease Hypokalemia Age-related osteoporosis without current pathological fracture Uncontrolled hypertension COVID-19 vaccine series completed Mitral regurgitation Hypertension Hypercholesterolemia Ischemic colitis Bile salt-induced diarrhea GERD (gastroesophageal reflux disease) Vaginal vault prolapse Anxiety Cardiomyopathy Obesity (BMI 30-39.9) Asthma Coronary artery disease Family History Family History Father Cancer Mother Cancer Surgical History Surgical History History of neck surgery History of thumb surgery History of tubal ligation History of cholecystectomy Social History Social History Housing: Condominium Alcohol intake: never Patient Tobacco Use Status: Never used Tobacco Smoked in Last 30 Days: No e-Cigarette/Vaping Use: Never Used Second Hand Smoke Exposure: No Use of substances other than those prescribed or required for medical reasons: No Advance Directives: No Advance Directives Information Provided: Yes Nutrition Risks: No Nutritional Risk service: No Current occupational status: disabled Cognitive needs: No Hearing needs: No Vision needs: Yes Meds Allergies Allergy/AdvReac Type Severity Reaction Status Date / Time Penicillins Allergy Severe DIFFICULTY Verified 09/10/24 22:36 BREATHING atorvastatin [From Lipitor] Allergy Unknown Unknown Verified 09/10/24 22:36 FRUITS Allergy Intermediate ITCHY Uncoded 09/10/24 22:36 THROAT, HOARSE VOICE SOMETIMES SOB Active Medications: Current Medications Acetaminophen (Acetaminophen 325 Mg Tablet) 650 mg PO Q6H PRN PRN Reason: Pain, Mild (Pain Scale 1-3), fever or headache Calcium Carbonate (Calcium Carbonate 750 Mg Tab.Chew) 750 mg PO Q4H PRN PRN Reason: Heartburn Hydromorphone HCl (Hydromorphone Hcl 0.5 Mg/0.5 Ml Syringe) 0.5 mg IVPUSH Q4H PRN; Protocol PRN Reason: Pain, Severe (Pain Scale 7-10) Potassium Chloride (Potassium Chloride/H20) 10 meq in 100 mls @ 100 mls/hr IV Q1H EMMIE Stop: 09/11/24 08:14 Last Admin: 09/11/24 07:05 Dose: 100 mls/hr Magnesium Hydroxide (Milk Of Magnesia 30 Ml Oral.Susp) 30 ml PO DAILY PRN PRN Reason: Constipation Melatonin (Melatonin 3 Mg Tablet) 6 mg PO BEDTIME PRN PRN Reason: Insomnia Ondansetron HCl (Ondansetron Hcl 4 Mg/2 Ml Vial) 4 mg IVPUSH Q8H PRN PRN Reason: Nausea and Vomiting Pantoprazole Sodium (Pantoprazole Sodium 40 Mg/10 Ml Vial) 40 mg IVPUSH BID@0630,1630 [facility] Last Admin: 09/11/24 07:05 Dose: 40 mg Sodium Chloride (0.9 % Sodium Chloride Flush 3 Ml Syringe) 3 ml IVFLUSH QSHIFT [facility] Last Admin: 09/11/24 07:13 Dose: Not Given Home Medications ?Medication ?Instructions ?Recorded ?Confirmed ?Last Taken ?Type Hand held step stool 06/16/24 07/09/24 Unknown History omeprazole 20 mg capsule,delayed 20 mg PO DAILY@0630 09/11/24 09/11/24 09/10/24 History release Physical Exam Vital Signs: Vital Signs: Last Vital Signs Temp 97.8 F 09/11/24 06:28 Pulse 85 09/11/24 06:28 Resp 12 09/11/24 06:28 BP 130/52 L 09/11/24 06:28 Pulse Ox 98 09/11/24 06:28 O2 Del Method Room Air 09/11/24 06:28 BMI result Body Mass Index 34.7 Exam: General: Awake, alert in no distress, weight 83.3 kg, elevated BMI 34.7 kg per m2 Head: Normocephalic, atraumatic EENT: PERRL, Lids normal, sclera normal, conjunctiva normal, nose normal , ears normal, throat without erythema or exudates Neck: Supple, no adenopathy Lung: breath sounds symmetric, no wheezing, rales or rhonchi Chest: symmetric movement, nontender Heart: regular rate and rhythm, normal S1, S2 no murmurs or rubs Abdomen: Obese, distended no tenderness on palpation with normoactive bowel sounds, midline hernia. Rectal: No external hemorrhoids noted, sphincter tone normal, loose red stool which is strongly Hemoccult positive Back: no vertebral tenderness, no CVAT Extremities: no deformities, moves all extremities symmetrically Neuro: Awake, alert, oriented, normal speech, cranial nerves intact, moves all extremities symmetrically Psych: Pleasant, cooperative Results Labs 09/11/24 14:53 09/10/24 22:54 Labs: Short CBC 09/10/24 09/11/24 Range/Units 22:54 03:56 WBC 8.6 8.3 (4.8-10.8) X10*3/uL Hgb 12.0 12.1 (12.0-16.0) g/dl Hct 34.7 L 35.0 L (37.0-47.0) % Plt Count 272 263 (160-400) X10*3/uL BMP 09/10/24 22:54 Sodium 141 Potassium 3.0 L D Chloride 106 Carbon Dioxide 24 BUN 15 Creatinine 0.82 Calcium 9.2 Liver Function 09/10/24 Range/Units 22:54 Total Bilirubin 0.8 (0.0-1.0) mg/dL AST 34 H (5-31) U/L ALT 14 (0-31) U/L Alkaline Phosphatase 81 (39-117) U/L Albumin 4.0 (3.5-5.0) g/dL Assessment and Plan (1) GERD (gastroesophageal reflux disease): Qualifiers: Esophagitis presence: without esophagitis Qualified Code(s): K21.9 - Gastro-esophageal reflux disease without esophagitis Status: Acute (2) Abdominal pain: Qualifiers: Abdominal location: epigastric Qualified Code(s): R10.13 - Epigastric pain Status: Acute (3) Acute lower GI bleeding: Status: Acute Plan 79 year old Estonian-speaking female with mood disorder, hypertension, gastroesophageal reflux disease, mixed hyperlipidemia, coronary artery disease, asthma admitted to [facility] on 09/11/24 for evaluation of nausea, vomiting, diarrhea with blood in stools. Patient states she ate a Cheese and Ham sandwich at 15:00 on 09/10/24. Around 16:00, patient started having generalized abdominal discomfort, nonbloody emesis and bloody diarrhea. She has had multiple episodes of nonbloody emesis throughout the day. Initially had blood mixed with stools but subsequently passed doroteo blood through her rectum, multiple episodes of this on the day of presentation as well. Pt reports she is feeling better today and denies abd pain at present. Last BM was at 9 am this morning and denies any rectal bleeding since then. Repeat CBC showed stable H & H. Of note, pt admitted in 2018 with similar symptoms and left sided colonoscopy showed ischemic colitis Pt symptoms are likely due to acute gastroenteritis with super-imporsed ischemic colitis Her symptoms appear to be resolving 09/11/[address] SCAN SHOWED: 1. No acute abnormalities identified. 2. Status post cholecystectomy. No biliary duct dilatation. 3. Normal appearance of the appendix. No free intraperitoneal fluid or gas collections. 4. Fat-containing right parasagittal epigastric abdominal wall hernia. No associated inflammatory changes. 09/2015 patient had a colonoscopy by Dr. Austin which revealed few scattered diverticuli and no mucosal abnormalities. 12/2017 Pt was admitted with LGI bleeding and left sided colonoscopy showed circumferential submucosal hemorrhagic change suggestive of ischemic colitis. RECOMMENDATIONS: 1. Agree with IV pain medications, anti emetics, PPI and antibiotics 2. Check GI panel and stool for C Diff toxin if pt has recurrent diarrhea. 3. Clear liquid diet today and advance diet as tolerated 3. If no further bleeding, and CBC remains stable, she can be discharged home in the am. If recurrent bleeding, Vidal prep on 09/13/24 for colonoscopy on Saturday. Procedures Date of Service Date of Service: 09/11/24
[2024-09-11 07:51] VITALS: BP 130/53; PULSE 80; RESP 20; TEMP 36.7; O2SAT 98
--- NOTE | 2024-09-11 11:09 | MHC.CM.PN ---
pt lives alone has a lofter and rm visits evry 6 months pt has own ride home
--- NOTE | 2024-09-11 11:15 | PHA.MEDREC ---
Addendum entered by Jarad Aiken RPh 09/11/24 11:22: We were unable to confirm lidocaine and albuterol inhaler. Addendum entered by Jarad Aiken RPh 09/11/24 11:20: Reivewed by [facility]. Claims were utilized Original Note: Pharmacy Consult ? Medication Reconciliation Pharmacy has completed the medication reconciliation.Spoke to patent through weblogic administrator service to [employer] med list. Patent states she doesn't know the names of her medications , her bottles are in her purse at home. when ask if there was anyone to call to confirm patient said no. called only contact on file for patient , however phone just rings then beeps. Utilized claim to confirm me list.
[2024-09-11 15:04] LABS: Hemoglobin 11.9 g/dl (12.0-16.0); Mean Corpuscular Volume 91.1 fL (80.0-98.0); Mean Platelet Volume 9.9 fL (9.4-12.3); Platelet Count 263 X10*3/uL (160-400); Red Blood Count 3.84 X10*6/uL (4.20-5.50); Red Cell Distribution Width 12.9 % (11.0-16.0)
[2024-09-11 15:12] VITALS: BP 147/73; PULSE 60; RESP 14; TEMP 36.6; O2SAT 97
[2024-09-11 15:17] LABS: Iron 50 mcg/dL (30-160); Percent Iron Saturation 22 % (15-50); Total Iron Binding Capacity 225 mcg/dL (228-428); Unsaturated Iron Binding 175 ug/dL
[2024-09-11] MEDS: 0.9 % Sodium Chloride Flush 3 ML SYRINGE IVFLUSH ×2 (15:17→21:24)
[2024-09-11 15:38] LABS: Ferritin 100 ng/mL (10-250)
[2024-09-11 15:52] LABS: Folate 12.6 ng/mL (> or = 4.0); Vitamin B12 910 pg/mL (200-900)
--- NOTE | 2024-09-11 15:52 | PM.EVENT ---
Event Note Date of Service: 09/11/24 Event Note: Chart reviewed patient examined agree with H&P as planned as outlined Time Spent With Patient Time: Total time managing care of this patient today ____ minutes.
--- NOTE | 2024-09-11 19:01 | PC.NURSE ---
received report from Syeda MOSLEY, assume care of pt at this time
[2024-09-11 19:19] VITALS: BP 170/44; PULSE 67; RESP 18; TEMP 36.8; O2SAT 98
[2024-09-11 20:00] VITALS: BP 156/72; PULSE 69; RESP 18; TEMP 36.3; O2SAT 97
[2024-09-11 21:31] VITALS: BMI 34.9
[2024-09-11] MEDS: Flu Vacc TS2024-25(6mos up)/PF 0.5 ML SYRINGE IM (21:43)
[2024-09-12] VITALS (7 sets, daily range): BP systolic 115–178; BP diastolic 58–80; PULSE 52–81; RESP 12–18; TEMP 36.3–37.2; O2SAT 95–97
[2024-09-12] MEDS: Pantoprazole Sodium 40 MG/10 ML VIAL IVPUSH ×2 (05:26→16:59)
[2024-09-12 06:50] LABS: Hematocrit 34.3 % (37.0-47.0); Hemoglobin 11.6 g/dl (12.0-16.0); Mean Corpuscular HGB Conc 33.8 g/dl (31.0-35.0); Mean Corpuscular Hemoglobin 31.2 pg (27.0-33.0); Mean Corpuscular Volume 92.2 fL (80.0-98.0); Mean Platelet Volume 10.1 fL (9.4-12.3); Platelet Count 254 X10*3/uL (160-400); Red Blood Count 3.72 X10*6/uL (4.20-5.50); Red Cell Distribution Width 12.9 % (11.0-16.0); White Blood Count 6.3 X10*3/uL (4.8-10.8)
[2024-09-12 07:18] LABS: Anion Gap 13 (12-20); Blood Urea Nitrogen 11 mg/dL (9-16); Calcium 8.8 mg/dL (8.4-10.2); Carbon Dioxide 29 mmol/L (22-29); Chloride 107 mmol/L (96-108); Creatinine Clr Calc Pharmacy 62.5; Estimated Glomerular Filt Rate > 60; Glucose Random 79 mg/dL (60-115); Potassium 3.5 mmol/L (3.3-5.1); Sodium 145 mmol/L (135-145)
[2024-09-12] MEDS: Atorvastatin Calcium 80 MG TABLET PO (08:43)
[2024-09-12] MEDS: Sertraline HCL 25 MG TABLET PO (08:43)
[2024-09-12] MEDS: Potassium Chloride ER 10 MEQ TABLET.ER PO (08:43)
[2024-09-12] MEDS: Bisoprolol Fumarate 5 MG TABLET 20 MG PO (08:44)
[2024-09-12] MEDS: Cholecalciferol (Vitamin D3) 25 MCG TABLET 50 MCG PO (08:44)
[2024-09-12] MEDS: 0.9 % Sodium Chloride Flush 3 ML SYRINGE IVFLUSH ×2 (08:44→16:59)
--- NOTE | 2024-09-12 14:13 | P.PNIM_ITS ---
Subjective Subjective Date of Service: 09/12/24 Interval History: No acute issues overnight. Continues with loose stool however no blood noted (all information obtained via educational interpreter) Review of Systems Denies chest pain Denies shortness of breath Denies nausea vomiting admits to diarrhea which is improved Denies fever chills Physical Exam 2 Vital Signs: Vital Signs: Last Vital Signs Temp 98.3 F 09/12/24 11:19 Pulse 52 09/12/24 11:19 Resp 18 09/12/24 11:19 BP 146/66 H 09/12/24 11:19 Pulse Ox 96 09/12/24 11:19 O2 Del Method Room Air 09/12/24 11:19 O2 Flow Rate 2 09/12/24 03:47 BMI result Body Mass Index 34.9 Const: Other: Awake no acute distress Resp: Other: Clear to auscultation bilaterally no rales rhonchi or wheezes Cardio: Other: No S4; positive S1-S2; no S3 murmurs rubs or gallops GI: Other: Soft nontender nondistended normoactive bowel sounds Extrem: Other: No edema bilaterally Objective Data Active Medications Acetaminophen (Acetaminophen 325 Mg Tablet) 650 mg PO Q6H PRN PRN Reason: Pain, Mild (Pain Scale 1-3), fever or headache Atorvastatin Calcium (Atorvastatin Calcium 80 Mg Tablet) 80 mg PO DAILY [facility] Last Admin: 09/12/24 08:43 Dose: 80 mg Documented By: LULU Bisoprolol Fumarate (Bisoprolol Fumarate 5 Mg Tablet) 20 mg PO DAILY [facility] Last Admin: 09/12/24 08:44 Dose: 20 mg Documented By: LULU Calcium Carbonate (Calcium Carbonate 750 Mg Tab.Chew) 750 mg PO Q4H PRN PRN Reason: Heartburn Hydromorphone HCl (Hydromorphone Hcl 0.5 Mg/0.5 Ml Syringe) 0.5 mg IVPUSH Q4H PRN; Protocol PRN Reason: Pain, Severe (Pain Scale 7-10) Magnesium Hydroxide (Milk Of Magnesia 30 Ml Oral.Susp) 30 ml PO DAILY PRN PRN Reason: Constipation Melatonin (Melatonin 3 Mg Tablet) 6 mg PO BEDTIME PRN PRN Reason: Insomnia Ondansetron HCl (Ondansetron Hcl 4 Mg/2 Ml Vial) 4 mg IVPUSH Q8H PRN PRN Reason: Nausea and Vomiting Pantoprazole Sodium (Pantoprazole Sodium 40 Mg/10 Ml Vial) 40 mg IVPUSH BID@2731,0467 [facility] Last Admin: 09/12/24 05:26 Dose: 40 mg Documented By: RIMMA Potassium Chloride (Potassium Chloride Er 10 Meq Tablet.Er) 10 meq PO DAILY [facility] Last Admin: 09/12/24 08:43 Dose: 10 meq Documented By: LULU Sertraline HCl (Sertraline Hcl 25 Mg Tablet) 25 mg PO DAILY [facility] Last Admin: 09/12/24 08:43 Dose: 25 mg Documented By: LULU Sodium Chloride (0.9 % Sodium Chloride Flush 3 Ml Syringe) 3 ml IVFLUSH QSHIFT [facility] Last Admin: 09/12/24 08:44 Dose: 3 ml Documented By: LULU Vitamin D (Cholecalciferol (Vitamin D3) 25 Mcg Tablet) 50 mcg PO DAILY [facility] Last Admin: 09/12/24 08:44 Dose: 50 mcg Documented By: LULU Labs 09/12/24 06:29 09/12/24 06:29 Labs: Laboratory Results - last 24 hr 09/11/24 09/12/24 14:53 06:29 MCV 91.1 92.2 MCH 31.0 31.2 MCHC 34.0 33.8 RDW 12.9 12.9 Plt Count 263 254 MPV 9.9 10.1 Absolute Nucleated RBC 0.000 0.000 Nucleated RBC % (auto) 0.0 0.0 Anion Gap 13 Estim Creat Clear Calc 62.5 Estimated GFR > 60 Random Glucose 79 Calcium 8.8 Iron 50 TIBC 225 L % Saturation 22 Unsat Iron Binding 175 Ferritin 100 Vitamin B12 910 H Folate 12.6 Assessment and Plan (1) Acute lower GI bleeding: Status: Acute Plan This is a 79-year-old female with pertinent history of mood disorder, hypertension, gastroesophageal reflux disease, mixed hyperlipidemia, coronary artery disease, asthma not on home oxygen who presents to the emergency department for evaluation of blood in stools. 1.Acute GI bleed -none since admission -tolerated full liquid diet; will advance to regular diet this evening -check CBC in a.m. -if tolerated diet and hemoglobin stable... As per GI may be discharged home with outpatient colonoscopy 2.Hypokalemia -repleted -follow renals/divalents 3.CAD -stable and well compensated -resume aspirin upon discharge if appropriate 4.Hypertension -acceptable control off therapies -add back in a.m. if appropriate Mechanical Full code Requires ongoing hospitalization for advancement of diet in backdrop of LGIB as per specialty recommendations Quality Stroke Does the patient have a stroke diagnosis?: No VTE Prior VTE?: No VTE Risk Level:: Medical - moderate - high VTE Device Contraindication: N/A - Device Ordered VTE Drug Contraindication: Treatment Not Indicated
[2024-09-12 16:24] LABS: CDiff Gene PCR NEGATIVE (Negative)
[2024-09-13] VITALS (7 sets, daily range): BP systolic 126–160; BP diastolic 59–66; PULSE 35–54; RESP 16–18; TEMP 36.2–37.5; O2SAT 95–98
[2024-09-13] MEDS: 0.9 % Sodium Chloride Flush 3 ML SYRINGE IVFLUSH ×3 (02:06→18:36)
[2024-09-13] MEDS: Pantoprazole Sodium 40 MG/10 ML VIAL IVPUSH (05:39)
[2024-09-13 06:48] LABS: MANUAL DIFF FLAG NO
[2024-09-13 06:54] LABS: Basophils Percent Auto 0.2 % (0-2); Eosinophils Absolute Auto 0.1 X10*3/uL (0.0-0.4); Eosinophils Percent Auto 1.7 % (0-4); Hematocrit 33.4 % (37.0-47.0); Hemoglobin 11.4 g/dl (12.0-16.0); Imm Gran Abs Auto 0.01 X10*3/uL (0.00-0.03); Imm Gran Pct Auto 0.2 % (0.0-0.4); Lymphocytes Absolute Auto 1.4 X10*3/uL (1.2-4.9); Lymphocytes Percent Auto 23.8 % (20-40); Mean Corpuscular HGB Conc 34.1 g/dl (31.0-35.0); Mean Corpuscular Volume 90.8 fL (80.0-98.0); Mean Platelet Volume 10.2 fL (9.4-12.3); Monocytes Absolute Auto 0.5 X10*3/uL (0.1-1.2); Monocytes Percent Auto 8.3 % (2-11); Neutrophils Absolute Auto 3.8 x10*3/uL (2.0-8.3); Neutrophils Percent Auto 65.8 % (45-73); Platelet Count 242 X10*3/uL (160-400); Red Blood Count 3.68 X10*6/uL (4.20-5.50); Red Cell Distribution Width 12.9 % (11.0-16.0); White Blood Count 5.8 X10*3/uL (4.8-10.8)
[2024-09-13 07:17] LABS: Anion Gap 9 (12-20); Blood Urea Nitrogen 12 mg/dL (9-16); Calcium 8.4 mg/dL (8.4-10.2); Carbon Dioxide 29 mmol/L (22-29); Chloride 107 mmol/L (96-108); Creatinine Clr Calc Pharmacy 64.2; Estimated Glomerular Filt Rate > 60; Glucose Fasting 91 mg/dL (60-99); Potassium 3.2 mmol/L (3.3-5.1); Sodium 142 mmol/L (135-145)
[2024-09-13] MEDS: Potassium Chloride ER 10 MEQ TABLET.ER PO (08:28)
[2024-09-13] MEDS: Cholecalciferol (Vitamin D3) 25 MCG TABLET 50 MCG PO (08:28)
[2024-09-13] MEDS: Sertraline HCL 25 MG TABLET PO (08:28)
[2024-09-13] MEDS: Bisoprolol Fumarate 5 MG TABLET 20 MG PO (08:28)
[2024-09-13] MEDS: Atorvastatin Calcium 80 MG TABLET PO (08:28)
[2024-09-13 10:25] LABS: Adenovirus F 40/41 Not Detected (Not Detect.); Astrovirus Not Detected (Not Detect.); Campylobacter Not Detected (Not Detect.); Cryptosporidium Not Detected (Not Detect.); Cyclospora cayetanensis Not Detected (Not Detect.); E. coli EAEC Not Detected (Not Detect.); E. coli EPEC Not Detected (Not Detect.); E. coli ETEC Not Detected (Not Detect.); E. coli STEC Not Detected (Not Detect.); Entamoeba histolytica Not Detected (Not Detect.); Giardia lamblia Not Detected (Not Detect.); Norovirus GI/GII Not Detected (Not Detect.); Plesiomonas shigelloides Not Detected (Not Detect.); Rotavirus A Not Detected (Not Detect.); Salmonella Not Detected (Not Detect.); Sapovirus Not Detected (Not Detect.); Shigella sp./EIEC Not Detected (Not Detect.); Vibrio Not Detected (Not Detect.); Vibrio Cholerae Not Detected (Not Detect.); Yersinia enterocolitica Not Detected (Not Detect.)
[2024-09-13] MEDS: Potassium Chloride ER 20 MEQ TAB.ER.PRT PO (12:13)
--- NOTE | 2024-09-13 12:23 | P.CONCA_ITS ---
History of Present Illness History of Present Illness Date of Service: 09/13/24 Requesting physician: Roseann Cardenas Chief complaint: Sinus bradycardia Narrative: 79 year female who presented with acute GI bleed which was conservatively managed. We have been consulted for sinus bradycardia. Her telemetry is showing heart rates in 40s. She is on bisoprolol 20 mg daily. She has no symptoms currently. No dizziness or lightheadedness. She was walking in the room when I entered and was completely stable and had no symptoms. She did have on telemetry a sinus pause with junctional escape but again she was completely asymptomatic. She is saying she has been in the emergency department before with bradycardia where medications were adjusted and she was sent back home. [facility] Past Medical History Medical History Peripheral vascular disease Hypokalemia Age-related osteoporosis without current pathological fracture Uncontrolled hypertension COVID-19 vaccine series completed Mitral regurgitation Hypertension Hypercholesterolemia Ischemic colitis Bile salt-induced diarrhea GERD (gastroesophageal reflux disease) Vaginal vault prolapse Anxiety Cardiomyopathy Obesity (BMI 30-39.9) Asthma Coronary artery disease Family History Family History Father Cancer Mother Cancer Surgical History Surgical History History of neck surgery History of thumb surgery History of tubal ligation History of cholecystectomy Social History Social History Household Members: None Housing: Apartment Do you presently have visiting nurse or other home services: Yes Alcohol intake: never Patient Tobacco Use Status: Never used Tobacco e-Cigarette/Vaping Use: Never Used Second Hand Smoke Exposure: No service: No Current occupational status: disabled Cognitive needs: No Hearing needs: No Vision needs: Yes Meds Allergies Allergy/AdvReac Type Severity Reaction Status Date / Time Penicillins Allergy Severe DIFFICULTY Verified 09/10/24 22:36 BREATHING atorvastatin [From Lipitor] Allergy Unknown Unknown Verified 09/10/24 22:36 FRUITS Allergy Intermediate ITCHY Uncoded 09/10/24 22:36 THROAT, HOARSE VOICE SOMETIMES SOB Active Medications: Current Medications Acetaminophen (Acetaminophen 325 Mg Tablet) 650 mg PO Q6H PRN PRN Reason: Pain, Mild (Pain Scale 1-3), fever or headache Amlodipine Besylate (Amlodipine Besylate 5 Mg Tablet) 5 mg PO DAILY [facility]; Protocol Atorvastatin Calcium (Atorvastatin Calcium 80 Mg Tablet) 80 mg PO DAILY [facility] Last Admin: 09/13/24 08:28 Dose: 80 mg Bisoprolol Fumarate (Bisoprolol Fumarate 5 Mg Tablet) 20 mg PO DAILY [facility] Last Admin: 09/13/24 08:28 Dose: 20 mg Calcium Carbonate (Calcium Carbonate 750 Mg Tab.Chew) 750 mg PO Q4H PRN PRN Reason: Heartburn Magnesium Hydroxide (Milk Of Magnesia 30 Ml Oral.Susp) 30 ml PO DAILY PRN PRN Reason: Constipation Melatonin (Melatonin 3 Mg Tablet) 6 mg PO BEDTIME PRN PRN Reason: Insomnia Omeprazole (Omeprazole 20 Mg Capsule.Dr) 20 mg PO DAILY@0630 [facility] Ondansetron HCl (Ondansetron Hcl 4 Mg/2 Ml Vial) 4 mg IVPUSH Q8H PRN PRN Reason: Nausea and Vomiting Potassium Chloride (Potassium Chloride Er 10 Meq Tablet.Er) 10 meq PO DAILY [facility] Last Admin: 09/13/24 08:28 Dose: 10 meq Sertraline HCl (Sertraline Hcl 25 Mg Tablet) 25 mg PO DAILY [facility] Last Admin: 09/13/24 08:28 Dose: 25 mg Sodium Chloride (0.9 % Sodium Chloride Flush 3 Ml Syringe) 3 ml IVFLUSH QSHIFT [facility] Last Admin: 09/13/24 08:28 Dose: 3 ml Vitamin D (Cholecalciferol (Vitamin D3) 25 Mcg Tablet) 50 mcg PO DAILY [facility] Last Admin: 09/13/24 08:28 Dose: 50 mcg Home Medications ?Medication ?Instructions ?Recorded ?Confirmed ?Last Taken ?Type Hand held step stool 06/16/24 07/09/24 Unknown History omeprazole 20 mg capsule,delayed 20 mg PO DAILY@0630 09/11/24 09/11/24 09/10/24 History release Physical Exam 2 Vital Signs: Vital Signs: Last Vital Signs Temp 98.2 F 09/13/24 11:09 Pulse 45 L 09/13/24 11:09 Resp 18 09/13/24 11:09 BP 131/59 L 09/13/24 11:09 Pulse Ox 96 09/13/24 11:09 O2 Del Method Room Air 09/13/24 11:09 O2 Flow Rate 2 09/12/24 03:47 BMI result Body Mass Index 34.9 GENERAL APPEARANCE: in no acute distress, pleasant. NECK: no carotid bruit, no jugular venous distention. SKIN: no suspicious lesions, warm and dry. HEART: no murmurs, regular rate and rhythm. Bradycardic. LUNGS: clear to auscultation bilaterally. ABDOMEN: soft, nontender. EXTREMITIES: no edema. PERIPHERAL PULSES: equal. NEUROLOGIC: No gross deficits, AAO X 3 Objective Labs and Meds 09/13/24 06:22 09/13/24 06:22 Lab results: Laboratory Results - last 24 hr 09/12/24 09/13/24 13:25 06:22 WBC 5.8 RBC 3.68 L Hgb 11.4 L Hct 33.4 L MCV 90.8 MCH 31.0 MCHC 34.1 RDW 12.9 Plt Count 242 MPV 10.2 Immature Gran % (Auto) 0.2 Neut % (Auto) 65.8 Lymph % (Auto) 23.8 [place] % (Auto) 8.3 Eos % (Auto) 1.7 Baso % (Auto) 0.2 Lymph # (Auto) 1.4 [place] # (Auto) 0.5 Eos # (Auto) 0.1 Baso # (Auto) 0.0 Abs Immat Gran (auto) 0.01 Absolute Neuts (auto) 3.8 Absolute Nucleated RBC 0.000 Nucleated RBC % (auto) 0.0 Sodium 142 Potassium 3.2 L Chloride 107 Carbon Dioxide 29 Anion Gap 9 L BUN 12 Creatinine 0.72 Estim Creat Clear Calc 64.2 Estimated GFR > 60 Fasting Glucose 91 Calcium 8.4 Stl C. cayetanensis PCR Not Detected Stool Rotavirus A PCR Not Detected Stl Adenov F 40/41 PCR Not Detected Stool Astrovirus (PCR) Not Detected Stool Campylobacter PCR Not Detected Stool Cryptosporidium PCR Not Detected Stl Sh Tox Pr E STEC PCR Not Detected Stool E coli O157 PCR Not applicable Stl Enterotoxigenic E PCR Not Detected Stool EPEC (PCR) Not Detected Stool EAEC (PCR) Not Detected Stl E. histolytica PCR Not Detected Stool Giardia Lamblia PCR Not Detected Stl P. shigelloides PCR Not Detected Stool Salmonella PCR Not Detected Stool Sapovirus (PCR) Not Detected Stl Shigella/EIEC PCR Not Detected St Y.enterocolitica PCR Not Detected Stool Vibrio (PCR) Not Detected Stl Vibrio cholerae PCR Not Detected Stl Norovirus GI/GII PCR Not Detected C. difficile Tox B Gene NEGATIVE Assessment and Plan (1) Bradycardia: Status: Acute Plan [age] year female who is presenting with GI bleed which was conservatively managed. She has sinus bradycardia. This is likely due to high dose bisoprolol. Hold bisoprolol for now. As heart rate recovers would favor starting on bisoprolol 5 mg daily. Continue rest of medications as before. We would signing off. Thank you for allowing me to participate in the care of your patient. Please feel free to contact me if you have any questions. Procedures Date of Service Date of Service: 09/13/24
--- NOTE | 2024-09-13 14:10 | HO.PM.IMPN ---
Subjective Subjective Date of Service: 09/13/24 Interval History: History obtained via field support engineer, patient denies nausea, no vomiting, no abdominal pain tolerating diet, no bowel movement this morning, had 1 bowel movement yesterday with streak of blood, H&H stable, tele monitor showed bradycardia patient denies lightheadedness, no dizziness, no chest pain or palpitations, provide history of prior bradycardia episode. Review of Systems All other symptoms reviewed and are negative. Physical Exam Vital Signs: Vital Signs: Last Vital Signs Temp 98.2 F 09/13/24 11:09 Pulse 45 L 09/13/24 11:09 Resp 18 09/13/24 11:09 BP 131/59 L 09/13/24 11:09 Pulse Ox 96 09/13/24 11:09 O2 Del Method Room Air 09/13/24 11:09 O2 Flow Rate 2 09/12/24 03:47 BMI result Body Mass Index 34.9 Const: Other: General resting comfortably in no acute distress. Anicteric sclera Neck no JVD. CVS bradycardia, regular rate rhythm, Respiratory lungs clear to auscultation, no respiratory distress, no wheeze, no rhonchi. Gastrointestinal abdomen soft, non tender, bowel sounds audible Extremities no edema. Neuro non focal Skin no rash Appropriate affect Objective Data Active Medications Acetaminophen (Acetaminophen 325 Mg Tablet) 650 mg PO Q6H PRN PRN Reason: Pain, Mild (Pain Scale 1-3), fever or headache Amlodipine Besylate (Amlodipine Besylate 5 Mg Tablet) 5 mg PO DAILY [facility]; Protocol Atorvastatin Calcium (Atorvastatin Calcium 80 Mg Tablet) 80 mg PO DAILY [facility] Last Admin: 09/13/24 08:28 Dose: 80 mg Documented By: TOM Bisoprolol Fumarate (Bisoprolol Fumarate 5 Mg Tablet) 20 mg PO DAILY [facility] Last Admin: 09/13/24 08:28 Dose: 20 mg Documented By: TOM Calcium Carbonate (Calcium Carbonate 750 Mg Tab.Chew) 750 mg PO Q4H PRN PRN Reason: Heartburn Magnesium Hydroxide (Milk Of Magnesia 30 Ml Oral.Susp) 30 ml PO DAILY PRN PRN Reason: Constipation Melatonin (Melatonin 3 Mg Tablet) 6 mg PO BEDTIME PRN PRN Reason: Insomnia Omeprazole (Omeprazole 20 Mg Capsule.Dr) 20 mg PO DAILY@0630 [facility] Ondansetron HCl (Ondansetron Hcl 4 Mg/2 Ml Vial) 4 mg IVPUSH Q8H PRN PRN Reason: Nausea and Vomiting Potassium Chloride (Potassium Chloride Er 10 Meq Tablet.Er) 10 meq PO DAILY [facility] Last Admin: 09/13/24 08:28 Dose: 10 meq Documented By: TOM Sertraline HCl (Sertraline Hcl 25 Mg Tablet) 25 mg PO DAILY [facility] Last Admin: 09/13/24 08:28 Dose: 25 mg Documented By: TOM Sodium Chloride (0.9 % Sodium Chloride Flush 3 Ml Syringe) 3 ml IVFLUSH QSHIFT [facility] Last Admin: 09/13/24 08:28 Dose: 3 ml Documented By: TOM Vitamin D (Cholecalciferol (Vitamin D3) 25 Mcg Tablet) 50 mcg PO DAILY [facility] Last Admin: 09/13/24 08:28 Dose: 50 mcg Documented By: TOM Labs 09/13/24 06:22 09/13/24 06:22 Labs: Laboratory Results - last 24 hr 09/12/24 09/13/24 13:25 06:22 MCV 90.8 MCH 31.0 MCHC 34.1 RDW 12.9 Plt Count 242 MPV 10.2 Immature Gran % (Auto) 0.2 Neut % (Auto) 65.8 Lymph % (Auto) 23.8 [place] % (Auto) 8.3 Eos % (Auto) 1.7 Baso % (Auto) 0.2 Lymph # (Auto) 1.4 [place] # (Auto) 0.5 Eos # (Auto) 0.1 Baso # (Auto) 0.0 Abs Immat Gran (auto) 0.01 Absolute Neuts (auto) 3.8 Absolute Nucleated RBC 0.000 Nucleated RBC % (auto) 0.0 Anion Gap 9 L Estim Creat Clear Calc 64.2 Estimated GFR > 60 Fasting Glucose 91 Calcium 8.4 Stl C. cayetanensis PCR Not Detected Stool Rotavirus A PCR Not Detected Stl Adenov F 40/41 PCR Not Detected Stool Astrovirus (PCR) Not Detected Stool Campylobacter PCR Not Detected Stool Cryptosporidium PCR Not Detected Stl Sh Tox Pr E STEC PCR Not Detected Stool E coli O157 PCR Not applicable Stl Enterotoxigenic E PCR Not Detected Stool EPEC (PCR) Not Detected Stool EAEC (PCR) Not Detected Stl E. histolytica PCR Not Detected Stool Giardia Lamblia PCR Not Detected Stl P. shigelloides PCR Not Detected Stool Salmonella PCR Not Detected Stool Sapovirus (PCR) Not Detected Stl Shigella/EIEC PCR Not Detected St Y.enterocolitica PCR Not Detected Stool Vibrio (PCR) Not Detected Stl Vibrio cholerae PCR Not Detected Stl Norovirus GI/GII PCR Not Detected C. difficile Tox B Gene NEGATIVE Assessment and Plan (1) Acute GI bleeding: Status: Acute (2) Bradycardia: Status: Acute Plan 79-year-old female with pertinent history of mood disorder, hypertension, gastroesophageal reflux disease, mixed hyperlipidemia, coronary artery disease, asthma not on home oxygen who presents to the emergency department for evaluation of blood in stools. 1.Acute GI bleed likely due to ischemic colitis -tolerating regular diet denies nausea vomiting abdominal pain, H&H stable -seen by GI since symptoms resolved with no recurrent bleed unstable H&H they recommend outpatient colonoscopy. 2.Hypokalemia -recurrent low potassium will replete and follow labs 3.CAD -aspirin on hold due to GI bleed, will hold bisoprolol due to bradycardia continue tele monitor, patient asymptomatic with no chest pain 4.Hypertension Stable blood pressure received morning dose of bisoprolol, follow BP closely since bisoprolol discontinued due to bradycardia. 5. Sinus bradycardia noted on telemetry Heart rate in 40s patient asymptomatic Cardiology consult obtained, patient noted to have sinus pause with junctional escape, they recommend to hold high-dose bisoprolol and continue tele monitor if heart rate improves cardio recommend low-dose 5 mg of bisoprolol. Mechanical Full code Requires ongoing hospitalization for tele monitoring for bradycardia and adjustment of medications . Quality Stroke Does the patient have a stroke diagnosis?: No VTE Prior VTE?: No VTE Risk Level:: Medical - moderate - high VTE Device Contraindication: N/A - Device Ordered VTE Drug Contraindication: Treatment Not Indicated
[2024-09-14] VITALS (10 sets, daily range): BP systolic 139–193; BP diastolic 65–81; PULSE 33–55; RESP 16–19; TEMP 36.1–36.3; O2SAT 94–99
[2024-09-14] MEDS: Omeprazole 20 MG CAPSULE.DR PO (06:02)
[2024-09-14 07:41] LABS: Anion Gap 12 (12-20); Blood Urea Nitrogen 15 mg/dL (9-16); Calcium 9.3 mg/dL (8.4-10.2); Carbon Dioxide 29 mmol/L (22-29); Chloride 106 mmol/L (96-108); Creatinine Clr Calc Pharmacy 59.2; Estimated Glomerular Filt Rate > 60; Glucose Random 90 mg/dL (60-115); Potassium 3.8 mmol/L (3.3-5.1); Sodium 143 mmol/L (135-145)
[2024-09-14] MEDS: Potassium Chloride ER 10 MEQ TABLET.ER PO (08:19)
[2024-09-14] MEDS: Atorvastatin Calcium 80 MG TABLET PO (08:19)
[2024-09-14] MEDS: amLODIPine Besylate 5 MG TABLET PO (08:19)
[2024-09-14] MEDS: Sertraline HCL 25 MG TABLET PO (08:20)
[2024-09-14] MEDS: Cholecalciferol (Vitamin D3) 25 MCG TABLET 50 MCG PO (08:20)
[2024-09-14] MEDS: 0.9 % Sodium Chloride Flush 3 ML SYRINGE IVFLUSH ×2 (08:21→23:50)
--- NOTE | 2024-09-14 12:56 | P.PNIM_ITS ---
Subjective Subjective Date of Service: 09/14/24 Interval History: Offers no acute complaints no bowel movement in last 2 days denies abdominal pain, no nausea, no vomiting, denies chest pain no lightheadedness no dizziness no headache, no acute events overnight tele monitor showed heart rate 30-40 range. Review of Systems All other symptoms are reviewed and are negative. Physical Exam 2 Vital Signs: Vital Signs: Last Vital Signs Temp 97.3 F 09/14/24 12:00 Pulse 55 09/14/24 12:00 Resp 17 09/14/24 12:00 BP 193/79 H 09/14/24 12:00 Pulse Ox 97 09/14/24 12:00 O2 Del Method Room Air 09/14/24 12:00 O2 Flow Rate 2 09/12/24 03:47 BMI result Body Mass Index 34.9 Const: Other: General resting comfortably in no acute distress. Anicteric sclera Neck no JVD. CVS bradycardia, regular rate rhythm, Respiratory lungs clear to auscultation, no respiratory distress, no wheeze, no rhonchi. Gastrointestinal abdomen soft, non tender, bowel sounds audible Extremities no edema. Neuro non focal Skin no rash Appropriate affect Objective Data Active Medications Acetaminophen (Acetaminophen 325 Mg Tablet) 650 mg PO Q6H PRN PRN Reason: Pain, Mild (Pain Scale 1-3), fever or headache Amlodipine Besylate (Amlodipine Besylate 5 Mg Tablet) 5 mg PO DAILY [facility]; Protocol Last Admin: 09/14/24 08:19 Dose: 5 mg Documented By: JACQUES Atorvastatin Calcium (Atorvastatin Calcium 80 Mg Tablet) 80 mg PO DAILY [facility] Last Admin: 09/14/24 08:19 Dose: 80 mg Documented By: JACQUES Calcium Carbonate (Calcium Carbonate 750 Mg Tab.Chew) 750 mg PO Q4H PRN PRN Reason: Heartburn Magnesium Hydroxide (Milk Of Magnesia 30 Ml Oral.Susp) 30 ml PO DAILY PRN PRN Reason: Constipation Melatonin (Melatonin 3 Mg Tablet) 6 mg PO BEDTIME PRN PRN Reason: Insomnia Omeprazole (Omeprazole 20 Mg Capsule.) 20 mg PO DAILY@0630 [facility] Last Admin: 09/14/24 06:02 Dose: 20 mg Documented By: SHANIQUA Ondansetron HCl (Ondansetron Hcl 4 Mg/2 Ml Vial) 4 mg IVPUSH Q8H PRN PRN Reason: Nausea and Vomiting Potassium Chloride (Potassium Chloride Er 10 Meq Tablet.Er) 10 meq PO DAILY [facility] Last Admin: 09/14/24 08:19 Dose: 10 meq Documented By: JACQUES Sertraline HCl (Sertraline Hcl 25 Mg Tablet) 25 mg PO DAILY [facility] Last Admin: 09/14/24 08:20 Dose: 25 mg Documented By: JACQUES Sodium Chloride (0.9 % Sodium Chloride Flush 3 Ml Syringe) 3 ml IVFLUSH QSHIFT [facility] Last Admin: 09/14/24 08:21 Dose: 3 ml Documented By: JACQUES Vitamin D (Cholecalciferol (Vitamin D3) 25 Mcg Tablet) 50 mcg PO DAILY [facility] Last Admin: 09/14/24 08:20 Dose: 50 mcg Documented By: JACQUES Labs 09/13/24 06:22 09/14/24 06:05 Labs: Laboratory Results - last 24 hr 09/14/24 06:05 Hold Purple Top SEE NOTE Anion Gap 12 Estim Creat Clear Calc 59.2 Estimated GFR > 60 Random Glucose 90 Calcium 9.3 D Assessment and Plan (1) Acute GI bleeding: Status: Acute (2) Bradycardia: Status: Acute Plan 79-year-old female with pertinent history of mood disorder, hypertension, gastroesophageal reflux disease, mixed hyperlipidemia, coronary artery disease, asthma not on home oxygen who presents to the emergency department for evaluation of blood in stools. 1.Acute GI bleed likely due to ischemic colitis -tolerating regular diet ,no nausea, vomiting, abdominal pain, H&H stable -seen by GI since symptoms resolved with no recurrent bleed and stable H&H, they recommend outpatient colonoscopy. 2.Hypokalemia -repleted and normalized 3.CAD -aspirin on hold due to GI bleed, will hold bisoprolol due to bradycardia continue tele monitor, patient asymptomatic with no chest pain 4.Hypertension Noted to have elevated blood pressures since bisoprolol on hold will place on hydralazine 25 mg b.i.d. follow blood pressure closely continue Norvas . 5. Sinus bradycardia noted on telemetry Heart rate in 40s patient asymptomatic Cardiology consult obtained, patient noted to have sinus pause with junctional escape, they recommend to hold high- dose bisoprolol and continue tele monitor if heart rate improves cardio recommend low-dose 5 mg of bisoprolol. Heart rate remains in 40s patient asymptomatic continued to hold beta-blockers and monitor Mechanical Full code Requires ongoing hospitalization for tele monitoring for bradycardia and adjustment of medications . Quality Stroke Does the patient have a stroke diagnosis?: No VTE Prior VTE?: No VTE Risk Level:: Medical - moderate - high VTE Device Contraindication: N/A - Device Ordered VTE Drug Contraindication: Treatment Not Indicated
[2024-09-14] MEDS: hydrALAZINE HCl 25 MG TABLET PO ×2 (13:15→20:40)
[2024-09-15 03:49] VITALS: BP 179/83; PULSE 59; RESP 19; TEMP 36.7; O2SAT 99
[2024-09-15] MEDS: Omeprazole 20 MG CAPSULE.DR PO (05:46)
[2024-09-15 07:34] VITALS: BP 151/78; PULSE 56; RESP 20; TEMP 37.1; O2SAT 98
[2024-09-15] MEDS: Cholecalciferol (Vitamin D3) 25 MCG TABLET 50 MCG PO (08:37)
[2024-09-15] MEDS: amLODIPine Besylate 5 MG TABLET PO ×2 (08:37→11:06)
[2024-09-15] MEDS: 0.9 % Sodium Chloride Flush 3 ML SYRINGE IVFLUSH (08:37)
[2024-09-15] MEDS: Sertraline HCL 25 MG TABLET PO (08:37)
[2024-09-15] MEDS: Potassium Chloride ER 10 MEQ TABLET.ER PO (08:37)
[2024-09-15] MEDS: hydrALAZINE HCl 25 MG TABLET PO (08:37)
[2024-09-15] MEDS: Atorvastatin Calcium 80 MG TABLET PO (08:38)
--- NOTE | 2024-09-15 10:47 | MHC.CM.PN ---
ANTIC PT WILL BE MEDICALLY CLEARED TO DC HOME W/RESUMP OF EMERGENCY SERVICES DISPATCHER, PT TO ARRANGE TRANSPORT
[2024-09-15 11:18] VITALS: BP 168/69; PULSE 50; RESP 20; TEMP 36.2; O2SAT 98
[2024-09-15] MEDS: Spironolactone 25 MG TABLET 50 MG PO (13:36)
[2024-09-15 14:21] VITALS: BP 157/61; PULSE 50; RESP 18
--- NOTE | 2024-09-15 14:44 | PM.DS ---
DS: Providers Provider Date of Service: 09/15/24 Date of admission: 09/11/24 04:01 Primary care physician: Radha Eden MD Consults: 09/11/24 04:01 Consult to Gastroenterology Routine Consulting Provider: Marcial Killian Reason for consultation: GI bleed 09/13/24 11:37 Consult to Cardiology Routine Consulting Provider: [facility] Reason for consultation: bradycardia Has provider been notified: No DS: Diagnosis Discharge Diagnosis (1) Acute GI bleeding: Status: Acute (2) Bradycardia: Status: Acute DS: Summary Hospital Course Hospital Course: History of presenting illness: Date of Service: 09/11/24 Chief Complaint: Blood in stool This is a 79-year-old female with pertinent history of mood disorder, hypertension, gastroesophageal reflux disease, mixed hyperlipidemia, coronary artery disease, asthma not on home oxygen who presents to the emergency department for evaluation of blood in stools. Patient states she ate a turkey sandwich at 15:00 on the day of presentation. Around 16:00, patient started having nonbloody emesis and bloody diarrhea. Patient also complaining of generalized abdominal discomfort which is constant, nonradiating and without any relieving factors. She has had multiple episodes of nonbloody emesis throughout the day. Initially had blood mixed with stools but subsequently passed doroteo blood through her rectum, multiple episodes of this on the day of presentation as well. No history of similar complaints in the past. Did have a screening colonoscopy a while ago but does not remember the details. Is not on anticoagulation. Admits chills but no documented fever. No chest pain, palpitations, shortness of breath, changes in urinary habits. The patient is Peruvian speaking and history obtained with the help of log data technician. In the emergency department, patient resuscitated with IV crystalloids. Stool occult blood noted to be positive. Hemoglobin stable. Hospital course: 79-year-old female with pertinent history of mood disorder, hypertension, gastroesophageal reflux disease, mixed hyperlipidemia, coronary artery disease, asthma not on home oxygen presented to emergency room for evaluation of blood in stool patient admitted to [facility] with a diagnosis of. 1.Acute GI bleed likely due to ischemic colitis, patient admitted to medical floor, H&H was monitored that remained stable patient had no further bouts of bloody stools currently tolerating regular diet seen by GI Dr. Constantin since symptoms have resolved with no recurrent bleed she recommend outpatient colonoscopy. Patient noted to have hypokalemia that was repleted and normalized. 2. Sinus bradycardia noted on tele monitor, patient denies symptoms of chest pain lightheadedness dizziness blood pressure remained stable patient evaluated by dialysis clinical manager noted to have sinus pause with junctional escape therefore bisoprolol was discontinued patient was monitored on telemetry unit heart rate gradually improved currently in 50s, since patient is asymptomatic and heart rate improved she is being discharged home to continue all other home medications for blood pressure including Norvasc/Aldactone and benazepril recommend to follow blood pressure closely and if noted to have elevated blood pressure follow-up with primary care physician. 3.CAD no acute chest pain noted, bisoprolol discontinued for bradycardia, recommend outpatient follow-up with PCP aspirin can be restarted since no GI bleed noted. Time Attestation Discharge Coordination Time (in mins): 40 Quality: Safe Use of Opioids Does Pt have an Active Cancer Diagnosis on the Problem List?: No Quality: Stroke Does the patient have a stroke diagnosis?: No Physical Exam Vital Signs: Vital Signs: Last Vital Signs Temp 97.2 F 09/15/24 11:18 Pulse 50 09/15/24 14:21 Resp 18 09/15/24 14:21 BP 157/61 H 09/15/24 14:21 Pulse Ox 98 09/15/24 11:18 O2 Del Method Room Air 09/15/24 11:18 O2 Flow Rate 2 09/12/24 03:47 BMI result Body Mass Index 34.9 Const: Other: General resting comfortably in no acute distress. Anicteric sclera Neck no JVD. CVS regular rate rhythm, Respiratory lungs clear to auscultation, no respiratory distress, no wheeze, no rhonchi. Gastrointestinal abdomen soft, non tender, bowel sounds audible Extremities no edema. Neuro non focal Skin no rash Appropriate affect Discharge Plan Discharge Anticipated Discharge Date/Time: 09/15/24 13:00 Patient Disposition: Home, Self-Care Discharge Diagnosis: Acute GI bleed Sinus bradycardia Referrals: Po,Radha Calles MD [Primary Care Provider] - 1 Week Discharge Medications: Continued rosuvastatin 40 mg tablet 40 mg PO DAILY Qty: 90 2RF albuterol sulfate [Ventolin HFA] 90 mcg/actuation HFA aerosol inhaler 2 puff inhalation Q6H PRN (Reason: shortness of breath or wheezing) Qty: 8.5 3RF (DME) Hand held step stool 0 .Route .MEDSUPPLY (DME) step stool with handle See Rx Instructions .Route .MEDSUPPLY Qty: 1 0RF Rx Instructions: As directed potassium chloride [Klor-Con M10] 10 mEq tablet,ER particles/crystals 10 meq PO DAILY Qty: 90 2RF sertraline 25 mg tablet 25 mg PO DAILY Qty: 90 2RF amlodipine-benazepril 10-40 mg capsule 1 cap PO DAILY Qty: 30 2RF spironolactone 50 mg tablet 50 mg PO BID Qty: 180 1RF omeprazole 20 mg capsule,delayed release(DR/EC) 20 mg PO DAILY@0630 lidocaine [Aspercreme (lidocaine)] 4 % adhesive patch,medicated 1 patch topical DAILY PRN (Reason: pain) Qty: 30 0RF aspirin [Adult Low Dose Aspirin] 81 mg tablet,delayed release (DR/EC) 81 mg PO DAILY Qty: 90 3RF (DME) compr.stocking,thigh,reg,large Misc See Rx Instructions .Route Qty: 2 0RF Rx Instructions: As directed 20-30 mm HG (DME) AIR PURIFIER See Rx Instructions .Route .MEDSUPPLY Qty: 1 0RF Rx Instructions: As directed cholecalciferol (vitamin D3) 50 mcg (2,000 unit) capsule 50 mcg PO DAILY 90 Days Qty: 90 3RF Discontinued bisoprolol fumarate 10 mg tablet 20 mg PO DAILY 90 Days Qty: 180 2RF Discharge Orders: Discharge Order (Routine); Ordered 09/15/24 Ordered By: Roseann Cardenas Diet: Low fat, low cholesterol Activity on Discharge: As tolerated Stand Alone Forms: Patient Portal Discharge page Print Language: Peruvian Care Plan Goals: Acute GI bleed resolved outpatient follow-up with Gastroenterology call for appointment Sinus bradycardia resolved bisoprolol discontinued Monitor blood pressure closely as outpatient and notify PCP if noted to have elevated blood pressure greater than 140 Health Concerns: Continue all home medications as before Plan of Treatment: Outpatient follow-up with Dr. Killian for colonoscopy call for appointment Outpatient follow-up with dialysis clinical manager Dr. Dejesus with for bradycardia call for appointment Outpatient follow-up with primary care physician for close blood pressure monitoring. Assessment: As above
== END 2024-09-15 15:43 | disposition home or self-care (01) | DRG 394 ==
LOC: HO.ED 09-11 03:51 → HO.EDOVER 09-11 04:06 → HO.IMC 09-11 18:50
PROVIDERS: Hospitalist; Internal Medicine Gastroenterology; Admitting Provider Student in an Organized Health Care Education/Training Program; Emergency Provider Emergency Medicine Emergency Medical Services; PCP Internal Medicine; Visit Provider Hospitalist
DX: K55.9 Vascular disorder of intestine, unspecified (principal); I42.9 Cardiomyopathy, unspecified; E87.6 Hypokalemia; I10 Essential (primary) hypertension; F39 Unspecified mood [affective] disorder; J45.909 Unspecified asthma, uncomplicated; R00.1 Bradycardia, unspecified; T44.7X5A Adverse effect of beta-adrenoreceptor antagonists, initial encounter; I25.10 Atherosclerotic heart disease of native coronary artery without angina pectoris; E78.2 Mixed hyperlipidemia; K21.9 Gastro-esophageal reflux disease without esophagitis; Z23 Encounter for immunization; Z79.899 Other long term (current) drug therapy
CPT/HCPCS: 36415; 74177; 80048; 80053; 82272; 82607; 82728; 82746; 83540; 83690; 85025; 85027; 87493; 87507; 90656; 93005; 99285; J1171; J2405; J2470; J2765; J3480; Q9967

== ENCOUNTER → 2024-09-10 22:48 | Outpatient (BNV) | payer OTHER, SELFPAY | PROVIDERS: Admitting Provider Student in an Organized Health Care Education/Training Program; Emergency Provider Emergency Medicine Emergency Medical Services; PCP Internal Medicine; Visit Provider Internal Medicine Cardiovascular Disease | DX: R94.31 Abnormal electrocardiogram [ECG] [EKG] (principal) | CPT/HCPCS: 93010 ==

== ENCOUNTER → 2024-09-11 04:01 | Outpatient (BNV) | payer OTHER, SELFPAY | PROVIDERS: Admitting Provider Student in an Organized Health Care Education/Training Program; Emergency Provider Emergency Medicine Emergency Medical Services; PCP Internal Medicine; Visit Provider Internal Medicine Cardiovascular Disease | DX: R00.1 Bradycardia, unspecified (principal) | CPT/HCPCS: 99222 ==

== ENCOUNTER → 2024-09-11 04:01 | Outpatient (BNV) | payer OTHER, SELFPAY | PROVIDERS: Admitting Provider Student in an Organized Health Care Education/Training Program; Emergency Provider Emergency Medicine Emergency Medical Services; PCP Internal Medicine; Visit Provider Internal Medicine Gastroenterology | DX: K21.9 Gastro-esophageal reflux disease without esophagitis (principal); K92.2 Gastrointestinal hemorrhage, unspecified | CPT/HCPCS: 99222 ==

== ENCOUNTER → 2024-09-11 04:01 | Outpatient (BNV) | payer OTHER, SELFPAY | PROVIDERS: Admitting Provider Student in an Organized Health Care Education/Training Program; Emergency Provider Emergency Medicine Emergency Medical Services; PCP Internal Medicine; Visit Provider Student in an Organized Health Care Education/Training Program | DX: K92.2 Gastrointestinal hemorrhage, unspecified (principal); R00.1 Bradycardia, unspecified | CPT/HCPCS: 99222; 99232; 99239; 99499 ==

== ENCOUNTER 2024-09-29 12:53 | Outpatient (AMB) | payer OTHER, SELFPAY ==
--- NOTE | 2024-09-29 12:55 | A.OFFPC_ITS ---
Vital Signs 09/29/24 12:56 Height 5 ft 1 in Weight 184 lb BMI 34.8 BP 162/80 H Blood Pressure Location Lt brachial Position Sitting Pulse 78 Pulse Source Pulse Oximeter Pulse Oximetry (%) 98 Oxygen Delivery Method Room Air [place] [facility] [place], high bp Allergies Penicillins Allergy (Severe, Verified 09/29/24 12:56) DIFFICULTY BREATHING atorvastatin [From Lipitor] Allergy (Unknown, Verified 09/29/24 12:56) Unknown FRUITS Allergy (Intermediate, Uncoded 09/29/24 12:56) ITCHY THROAT, HOARSE VOICE SOMETIMES SOB bisoprolol Adverse Reaction (Intermediate, Uncoded 09/29/24 13:06) Bradycardia Tobacco use date assessed: 07/09/24 Fall risk assessment: No Falls in past year Last assessed Fall Risk: 09/29/24 Dental Screening Dental Screen Date: 07/09/24 [place] [facility] [place] bleeding, high bp HPI Details 79-year-old female with multiple medical problems from coronary artery disease, asthma, cardiomyopathy GERD hypercholesterolemia generalized anxiety disorder hypertension coming in for follow-up. Review of the notes in September 15 recently discharged from the hospital for GI bleeding been bradycardia. Had bloody diarrhea. Patient diagnosis ischemic colitis, advised outpatient colonoscopy. Patient on telemetry noted to have bradycardia with sinus pauses and junctional escape therefore bisoprolol was discontinued. CT scan was done in August [age]-year-old male with a history of liver cirrhosis having had tips done with generalized anxiety disorder hypertension obstructive sleep apnea hypercholesterolemia and gastric ulcer calling in through Telehealth. Patient was last seen in 09/08/2024 TCM TCM Information Date of Discharge 09/15/24 Discharged From [facility] Medical History Peripheral vascular disease Hypokalemia Age-related osteoporosis without current pathological fracture Uncontrolled hypertension COVID-19 vaccine series completed Mitral regurgitation Hypertension Hypercholesterolemia Ischemic colitis Bile salt-induced diarrhea GERD (gastroesophageal reflux disease) Vaginal vault prolapse Anxiety Cardiomyopathy Obesity (BMI 30-39.9) Asthma Coronary artery disease Surgical History History of neck surgery History of thumb surgery History of tubal ligation History of cholecystectomy Family History Father Cancer Mother Cancer Social History Household Members: None Housing: Apartment Do you presently have visiting nurse or other home services: Yes Alcohol intake: never Patient Tobacco Use Status: Never used Tobacco e-Cigarette/Vaping Use: Never Used Second Hand Smoke Exposure: No service: No Current occupational status: disabled Cognitive needs: No Hearing needs: No Vision needs: Yes Questionnaire PHQ-9 Over the last 2 weeks, how often have you been bothered by any of the following problems? 1. Little interest or pleasure in doing things: not at all 2. Feeling down, depressed, or hopeless: not at all 3. Trouble falling or staying asleep, or sleeping too much: not at all 4. Feeling tired or having little energy: not at all 5. Poor appetite or overeating: not at all 6. Feeling bad about yourself - or that you are a failure or have let yourself or your family down: not at all 7. Trouble concentrating on things, such as reading the newspaper or watching television: not at all 8. Moving or speaking so slowly that other people could have noticed. Or the opposite - being so fidgety or restless that you have been moving around a lot more than usual: not at all 9. Thoughts that you would be better off or of hurting yourself in some way: not at all Total score: 0 Depression Screening Interpretation: Negative Depression Screening Done: Yes Source: Developed by Drs. Caleb Xiao, Donna Torres, Antony Tovar and colleagues, with an educational pao from [employer]. Thrive Questionnaire Date Thrive assessed: 09/11/24 AUDIT C Alcohol Use Questionnaire (AUDIT-C) 1. How often do you have a drink containing alcohol?: Never 2. How many drinks containing alcohol do you have on a typical day when you are drinking?: 1 or 2 (0) 3. How often do you have six or more drinks on one occasion?: Never Total Score: 0 Score Reviewed/Action Taken: No JERALD-7 AMB Questionnaire JERALD-7 Date JERALD - 7 assessed: 07/09/24 Source: Developed by Drs. Caleb Xiao, Antony Salguero and colleagues, with an educational pao from [employer]. Physical exam (Primary Care) Vital Signs: Last Vital Signs Pulse 78 09/29/24 12:56 BP 162/80 H 09/29/24 12:56 Pulse Ox 98 09/29/24 12:56 Oxygen Delivery Method Room Air 09/29/24 12:56 BMI result Body Mass Index 34.8 Tobacco/Smoking Status: Tobacco use Status Tobacco use date assessed 07/09/24 09/29/24 12:55 Patient Tobacco Use Status Never used Tobacco 09/29/24 12:55 e-Cigarette/Vaping Use Never Used 09/29/24 12:55 PHQ-9: PHQ-9 Score PHQ-9: Total score 0 09/29/24 13:01 Depression Screening Interpretation: Negative Thrive Assessment: Date of Thrive Assessment Date Thrive assessed 09/11/24 09/29/24 12:55 Const General: alert; No acute distress Eyes Conjunctivae: conjunctivae normal Resp Auscultation: clear to auscultation bilaterally Cardio Rate: regular rate Rhythm: regular rhythm GI Inspection: Yes normal to inspection Extrem General: Yes normal to inspection and No edema Coding Level of Care Code Est Pt Level 4 (80000) Diagnoses Coronary artery disease involving [place] coronary artery of [place] heart without angina pectoris I25.10 Coronary Disease-Associated Artery/Lesion type: [place] artery [place] vs. transplanted heart: [place] heart Associated angina: without angina Resistant hypertension I10 Bradycardia R00.1 Generalized anxiety disorder F41.1 Rectal bleeding K62.5 Assessment & Plan Assessment & Plan (1) Coronary artery disease: Comment: NSTMI October 2011 stress cardiomyopathy son May 2014 Dr. Joyce, April 2016 echo May 2019 EF 50-55% moderate aortic regurg, 2021The left ventricular systolic function is normal. The calculated ejection fraction is 67% by biplane method. - There is mild aortic valve regurgitation. Code(s): I25.10 - Atherosclerotic heart disease of [place] coronary artery without angina pectoris Category: Medical Qualifiers: Coronary Disease-Associated Artery/Lesion type: [place] artery [place] vs. transplanted heart: [place] heart Associated angina: without angina Qualified Code(s): I25.10 - Atherosclerotic heart disease of [place] coronary artery without angina pectoris Plan: Control the cholesterol, weight, blood pressure, diabetes on aspirin 81 mg once a day (2) Resistant hypertension: Code(s): I10 - Essential (primary) hypertension Category: Medical Plan: Continue with blood pressure medication. Decrease salt intake and exercise patient has been taken off bisoprolol due to bradycardia. On amlodipine benazepril 10/40 mg once a day spironolactone 50 mg twice a day Discussed need f or controlling the BP and PAtient is going to see NEphrology end of this month (3) Bradycardia: Code(s): R00.1 - Bradycardia, unspecified Category: Medical Plan: Bisoprolol prescription discontinued due to bradycardia (4) Generalized anxiety disorder: Comment: declined referral (12/2023) Code(s): F41.1 - Generalized anxiety disorder Category: Medical Plan: Patient on sertraline 25 mg once a day (5) Rectal bleeding: Code(s): K62.5 - Hemorrhage of anus and rectum Category: Medical Plan: Referral to Gastroenterology done Orders: Referrals Gastroenterology Referral K62.5 - Hemorrhage of anus and rectum Medications: Changed From amlodipine-benazepril 10-40 mg 1 cap PO DAILY 30 caps 2RF K62.5 - Hemorrhage of anus and rectum To amlodipine-benazepril 10-40 mg 1 cap PO DAILY 90 days 90 caps 2RF K62.5 - Hemorrhage of anus and rectum
[2024-09-29 12:56] VITALS: BP 162/80; PULSE 78; O2SAT 98; BMI 34.8
== END 2024-09-29 13:32 | disposition home or self-care (01) ==
PROVIDERS: PCP Internal Medicine; Visit Provider Internal Medicine
DX: I25.10 Atherosclerotic heart disease of native coronary artery without angina pectoris (principal); I10 Essential (primary) hypertension; R00.1 Bradycardia, unspecified; F41.1 Generalized anxiety disorder; K62.5 Hemorrhage of anus and rectum

== ENCOUNTER → 2024-09-29 12:53 | Outpatient (BNVA) | payer OTHER, SELFPAY | PROVIDERS: PCP Internal Medicine; Visit Provider Internal Medicine | DX: I25.10 Atherosclerotic heart disease of native coronary artery without angina pectoris (principal); I10 Essential (primary) hypertension; F41.1 Generalized anxiety disorder; K62.5 Hemorrhage of anus and rectum | CPT/HCPCS: 96127; 99212 ==

== ENCOUNTER 2024-10-06 10:53 | Outpatient (REF) | payer OTHER, SELFPAY | END 2024-10-06 10:54 | disposition home or self-care (01) | LOC: HO.MAMMO 10:53 | PROVIDERS: PCP Internal Medicine; Visit Provider Internal Medicine | DX: Z12.31 Encounter for screening mammogram for malignant neoplasm of breast (principal) | CPT/HCPCS: 77063; 77067 ==

== ENCOUNTER → 2024-10-06 11:00 | Outpatient (BNV) | payer OTHER, SELFPAY | PROVIDERS: PCP Internal Medicine; Visit Provider Internal Medicine | DX: Z12.31 Encounter for screening mammogram for malignant neoplasm of breast (principal) | CPT/HCPCS: 77063; 77067 ==

== ENCOUNTER 2024-10-08 11:32 | Outpatient (AMB) | payer OTHER, SELFPAY ==
[2024-10-08 11:33] VITALS: BP 136/80; PULSE 78; O2SAT 99; BMI 34.3
--- NOTE | 2024-10-08 11:33 | MHC.PC.OV ---
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 Required: No Accompanied by: Self / Same As Patient Allergies Penicillins Allergy (Severe, Verified 10/08/24 11:39) DIFFICULTY BREATHING atorvastatin [From Lipitor] Allergy (Unknown, Verified 10/08/24 11:39) Unknown FRUITS Allergy (Intermediate, Uncoded 10/08/24 11:39) ITCHY THROAT, HOARSE VOICE SOMETIMES SOB bisoprolol Adverse Reaction (Intermediate, Uncoded 10/08/24 11:39) Bradycardia Medication List - Last Reconciled 10/08/24 by Anna Nazario PA-C [AIR PURIFIER As directed] albuterol sulfate 90 mcg/actuation (Ventolin HFA) 2 puffs inhalation Q6H PRN amlodipine-benazepril 10-40 mg 1 cap PO DAILY 90 days aspirin (Adult Low Dose Aspirin) 81 mg PO DAILY cholecalciferol (vitamin D3) 50 mcg PO DAILY 90 days compr.stocking,thigh,reg,large As directed 20-30 mm HG [Hand held step stool ] lidocaine 4% (Aspercreme (lidocaine)) 1 patch topical DAILY PRN omeprazole 20 mg PO DAILY@0630 potassium chloride ER (Klor-Con M) 10 mEq PO DAILY rosuvastatin 40 mg PO DAILY sertraline 25 mg PO DAILY spironolactone 50 mg PO BID [step stool with handle As directed] Tobacco use date assessed: 10/08/24 Fall risk assessment: No Falls in past year Last assessed Fall Risk: 10/08/24 Dental Screening Dental Screen Date: 10/08/24 Did you have a dental visit in the last 12 months?: Yes Did you have a dental problem in the last 6 months where you did not have access to dental care?: No Was dental information given to patient?: Patient has dentist HPI annual exam HPI Details 79-year-old female with past medical history of coronary artery disease, asthma, cardiomyopathy, GERD, hypercholesterolemia, generalized anxiety disorder, hypertension last seen by Dr. Eden 09/29/2024 coming in for annual exam. 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 Bisoprolol was discontinued at her last visit due to bradycardia and patient was referred to Gastroenterology. Patient presents today with her DIAMOND SETTER who is the certified hearing instrument dispenser for this appointment. Official biomedical engineering technician was offered at this appointment and declined. Patient states she is no longer having diarrhea and has been having normal bowel movements without blood in stool. Blood pressures at home have been in the 120-130 range systolic and 62-76 range diastolic and patient's headaches have resolved. She was recently seen by the eye doctor. She has not yet made an appointment with the GI specialist or the blacktop paver operator. [facility] Medical History Peripheral vascular disease Hypokalemia Age-related osteoporosis without current pathological fracture Uncontrolled hypertension COVID-19 vaccine series completed Mitral regurgitation Hypertension Hypercholesterolemia Ischemic colitis Bile salt-induced diarrhea GERD (gastroesophageal reflux disease) Vaginal vault prolapse Anxiety Cardiomyopathy Obesity (BMI 30-39.9) Asthma Coronary artery disease Surgical History History of neck surgery History of thumb surgery History of tubal ligation History of cholecystectomy Family History Father Cancer Mother Cancer Social History Household Members: None Housing: Apartment Do you presently have visiting nurse or other home services: Yes Alcohol intake: never Patient Tobacco Use Status: Never used Tobacco e-Cigarette/Vaping Use: Never Used Second Hand Smoke Exposure: No service: No Current occupational status: disabled Cognitive needs: No Hearing needs: No Vision needs: Yes Questionnaire PHQ-9 Over the last 2 weeks, how often have you been bothered by any of the following problems? 1. Little interest or pleasure in doing things: not at all 2. Feeling down, depressed, or hopeless: not at all 3. Trouble falling or staying asleep, or sleeping too much: not at all 4. Feeling tired or having little energy: not at all 5. Poor appetite or overeating: not at all 6. Feeling bad about yourself - or that you are a failure or have let yourself or your family down: not at all 7. Trouble concentrating on things, such as reading the newspaper or watching television: not at all 8. Moving or speaking so slowly that other people could have noticed. Or the opposite - being so fidgety or restless that you have been moving around a lot more than usual: not at all 9. Thoughts that you would be better off or of hurting yourself in some way: not at all Total score: 0 Depression Screening Interpretation: Negative Depression Screening Done: Yes Source: Developed by Drs. Caleb Xiao, Donna Torres, Antony Tovar and colleagues, with an educational pao from [employer]. Thrive Questionnaire Date Thrive assessed: 10/08/24 I am a: Patient What is your living situation today?: I have a steady place to live Within the past 12 months, did the food you bought not last and you didn't have the money to get more?: Never true Within the past 12 months, did you worry whether your food would run out before you got money to buy more?: Never true Do you have trouble paying for medicines?: No Do you have trouble getting transportation to medical appointments?: No Do you have trouble paying your heating and electricity bill?: No Do you have trouble taking care of your child, family member or friend?: No Do you have trouble with day-to-day activities such as bathing, preparing meals, shopping, managing finances, etc.?: No Are you currently unemployed and looking for a job?: No Are you interested in more education?: No Please select the resources that you would like help with: None Currently or been in a relationship where the following occur: No concerns reported THRIVE Score: 0 AUDIT C Alcohol Use Questionnaire (AUDIT-C) 1. How often do you have a drink containing alcohol?: Never Total Score: 0 JERALD-7 AMB Questionnaire JERALD-7 Date JERALD - 7 assessed: 10/08/24 Feeling nervous, anxious, or on edge: 0 = Not at all Not being able to stop or control worryin = Not at all Worrying too much about different things: 0 = Not at all Trouble relaxin = Not at all Being so restless that it is hard to sit still: 0 = Not at all Becoming easily annoyed or irritable: 0 = Not at all Feeling afraid as if something awful might happen: 0 = Not at all Total JERALD-7 score (0-4 normal; 5-9 mild; 10-14 moderate; 15-21 severe): 0 Source: Developed by Drs. Caleb Xiao, Donna Torres, Antony Tovar and colleagues, with an educational pao from [employer]. Review of Systems Const Denies body aches, Denies fatigue, Denies fever(s), Denies frequent falls, Denies headache(s) and Denies weakness Eyes Reports no additional complaints and Denies change in vision ENT Denies dizziness, Denies facial pain, Denies headache(s) and Denies nasal congestion Card Denies chest pain, Denies syncope, Denies irregular heart rhythm, Denies leg edema, Denies lightheadedness and Denies dyspnea Resp Denies cough and Denies dyspnea GI Denies abdominal pain, Denies constipation, Denies dyspepsia, Denies diarrhea, Denies nausea and Denies vomiting Denies urinary frequency, Denies dysuria, Denies urinary hesitancy and Denies urinary urgency Musc Denies back pain and Denies myalgias Skin/Breast Reports system reviewed and no additional complaints, except as documented Neuro Denies dizziness, Denies syncope, Denies frequent falls, Denies headache(s) and Denies weakness Psych Reports no additional complaints Endo Denies fatigue Physical exam (Primary Care) Vital Signs: Last Vital Signs Pulse 78 10/08/24 11:33 BP 136/80 10/08/24 11:33 Pulse Ox 99 10/08/24 11:33 Oxygen Delivery Method Room Air 10/08/24 11:33 BMI result Body Mass Index 34.3 BMI Assessment/Plan discussion: High BMI High, discussed plan: lifestyle, weight reduction, dietary and physical activity Tobacco/Smoking Status: Tobacco use Status Tobacco use date assessed 10/08/24 10/08/24 11:38 Patient Tobacco Use Status Never used Tobacco 10/08/24 11:38 e-Cigarette/Vaping Use Never Used 10/08/24 11:38 PHQ-9: PHQ-9 Score PHQ-9: Total score 0 10/08/24 11:38 Depression Screening Interpretation: Negative Thrive Assessment: Date of Thrive Assessment Date Thrive assessed 10/08/24 10/08/24 11:38 Currently or been in a relationship where the following occur: No concerns reported Advance Care Planning discussion: Completed/Scanned Date of discussion: 10/08/24 Who was present: Patient, DIAMOND SETTER Forms completed: Health Care Proxy and MOLST Time spent: 1-15 minutes, not on file Actual minutes spent: 5 Const General: cooperative, healthy appearing, comfortable and no acute distress Orientation/consciousness: patient oriented x3 HENMT Head: Yes normocephalic Ears: hearing grossly normal bilaterally, external ears normal, TM's normal bilaterally and EAC's normal General nose exam: Normal external nose present Face and sinus: Yes normal facial exam and Yes sinuses nontender Mouth: Normal oral and palatal mucosa present and tongue normal Throat: Yes posterior oropharynx normal Eyes General: appearance normal, both eyes and all related structures Conjunctivae: conjunctivae normal Pupils: Equal, round and reactive pupils present EOM: EOMs intact bilaterally and No Nystagmus present Neck Neck: Yes normal visual inspection, Yes full ROM and Yes no lymphadenopathy Chest Chest palpation & inspection: normal inspection of the chest Resp Effort & Inspection: normal respiratory effort Auscultation: clear to auscultation bilaterally, no crackles, no rales, no rhonchi, no wheezes and breath sounds present Cardio Rate: regular rate Rhythm: regular rhythm Peripheral pulses: radial pulses present and dorsalis pedis present GI Inspection: Yes normal to inspection and No Abdominal wall edema Palpation (GI): Soft to palpation, not firm and nontender Auscultation: normal bowel sounds Rectal Exam - Female: deferred General: Yes no CVA tenderness Back/Spine/Pelvis Back: no CVA tenderness Skin General skin exam: no rashes or lesions noted Neuro General: patient oriented x3 Cranial nerves: Yes Equal, round and reactive pupils present, Yes Midline tongue present, Yes Ability to bilaterally elevate shoulders present and No Nystagmus present Gait exam (Neuro): Normal gait present Extrem General: Yes normal to inspection, Yes full ROM, No no pedal edema and No edema Psych Speech and movement: Normal speech and movement present Affect: normal affect Insight: Good insight present (Psych) Judgement: Good judgement present (Psych) Coding Level of Care Code Est Pt Prev Care >65y(66496) Diagnoses Mild intermittent asthma without complication J45.20 Asthma severity: mild Asthma persistence: intermittent Asthma complication type: uncomplicated Coronary artery disease involving chilkat coronary artery of chilkat heart without angina pectoris I25.10 Coronary Disease-Associated Artery/Lesion type: chilkat artery [place] vs. transplanted heart: chilkat heart Associated angina: without angina Obesity (BMI 30-39.9) E66.9 Stress-induced cardiomyopathy I51.81 Cardiomyopathy type: stress-induced Gastroesophageal reflux disease without esophagitis K21.9 Esophagitis presence: without esophagitis Hypercholesterolemia E78.00 Vitamin D deficiency E55.9 Generalized anxiety disorder F41.1 Peripheral vascular disease I73.9 Resistant hypertension I10 Adult general medical exam Z00.00 Hearing loss H91.90 Additional Codes Vital Signs *Quality* - Advance Care Planning discussion: Completed/Scanned ([id number]) Vital Signs *Quality* - Time spent: 1-15 minutes, not on file ([id number]) Assessment & Plan Assessment & Plan (1) Asthma: Code(s): J45.909 - Unspecified asthma, uncomplicated Category: Medical Qualifiers: Asthma severity: mild Asthma persistence: intermittent Asthma complication type: uncomplicated Qualified Code(s): J45.20 - Mild intermittent asthma, uncomplicated Plan: Asthma currently controlled on present medications. Continue on ___. Avoid triggers such as allergies. (2) Coronary artery disease: Comment: NSTMI October 2011 stress cardiomyopathy son May 2014 Dr. Joyce, April 2016 echo May 2019 EF 50-55% moderate aortic regurg, 2021The left ventricular systolic function is normal. The calculated ejection fraction is 67% by biplane method. - There is mild aortic valve regurgitation. Code(s): I25.10 - Atherosclerotic heart disease of chilkat coronary artery without angina pectoris Category: Medical Qualifiers: Coronary Disease-Associated Artery/Lesion type: chilkat artery [place] vs. transplanted heart: chilkat heart Associated angina: without angina Qualified Code(s): I25.10 - Atherosclerotic heart disease of chilkat coronary artery without angina pectoris Plan: Advised good control of blood pressure, cholesterol and diabetes. (3) Obesity (BMI 30-39.9): Code(s): E66.9 - Obesity, unspecified Category: Medical Plan: Healthy diet and regular exercise is encouraged. (4) Cardiomyopathy: Code(s): I42.9 - Cardiomyopathy, unspecified Category: Medical Qualifiers: Cardiomyopathy type: stress-induced Qualified Code(s): I51.81 - Takotsubo syndrome Plan: Continue to monitor the blood pressure and control the blood sugars and cholesterol. Referral placed for Cardiology. (5) GERD (gastroesophageal reflux disease): Code(s): K21.9 - Gastro-esophageal reflux disease without esophagitis Category: Medical Qualifiers: Esophagitis presence: without esophagitis Qualified Code(s): K21.9 - Gastro-esophageal reflux disease without esophagitis Plan: Avoid trigger foods such as citrus, tomato products, soda, caffeine, spicy foods and other foods that may be irritating to your stomach. Avoid laying flat 3-4 hours after eating and elevate the head of the bed 30 degrees to prevent acid from moving into the esophagus. (6) Hypercholesterolemia: Code(s): E78.00 - Pure hypercholesterolemia, unspecified Category: Medical Plan: Avoid foods that are high in cholesterol such as red meat, fried foods, eggs and baked goods. Triglyceride goal of less than 150 and LDL goal of less than 70. Ordered for updated cholesterol labs (7) Vitamin D deficiency: Code(s): E55.9 - Vitamin D deficiency, unspecified Category: Medical Plan: Continue to monitor with blood work currently on supplementation (8) Generalized anxiety disorder: Comment: declined referral (12/2023) Code(s): F41.1 - Generalized anxiety disorder Category: Medical Plan: On sertraline 25 mg declining any symptoms at this time. (9) Peripheral vascular disease: Code(s): I73.9 - Peripheral vascular disease, unspecified Category: Medical Plan: On aspirin no leg swelling at this time peripheral pulses intact in bilateral lower extremities (10) Resistant hypertension: Code(s): I10 - Essential (primary) hypertension Category: Medical Plan: Continue on current blood pressure medication. Avoid salt intake and encourage healthy diet and regular exercise. Blood pressure at goal today 136/80 (11) Adult general medical exam: Code(s): Z00.00 - Encounter for general adult medical examination without abnormal findings Category: Medical Plan: Patient is up-to-date on all recommended routine screenings and vaccinations for her age. Continue with healthy diet and regular exercise. Ordered for updated cholesterol labs. Healthcare proxy/ MOLST forms were reviewed with patient patient advised to bring completed forms to office to be scanned to chart (12) Hearing loss: Code(s): H91.90 - Unspecified hearing loss, unspecified ear Category: Medical Plan: Referral placed to [facility] speech and hearing Plan This note was constructed using voice recognition software. While every effort has been made to ensure accuracy and cardiopulmonary technologist, still areas may have been included sometimes these areas may affect the content or meeting of the given symptoms. Total time spent caring for the patient today was 30 minutes. This includes time spent before the visit reviewing the chart, time spent during the visit, and time spent after the visit and documentation. Orders: Orders Lipid Panel Today E78.00 - Pure hypercholesterolemia, unspecified Referrals Cardiology Referral I25.10 - Atherosclerotic heart disease of chilkat coronary artery without angina pectoris, I51.81 - Takotsubo syndrome, R00.1 - Bradycardia, unspecified Speech and Hearing Referral H91.90 - Unspecified hearing loss, unspecified ear
== END 2024-10-08 12:13 | disposition home or self-care (01) ==
PROVIDERS: PCP Internal Medicine
DX: Z00.00 Encounter for general adult medical examination without abnormal findings (principal); E66.9 Obesity, unspecified; I73.9 Peripheral vascular disease, unspecified; Z68.34 Body mass index [BMI] 34.0-34.9, adult; J45.20 Mild intermittent asthma, uncomplicated; I25.10 Atherosclerotic heart disease of native coronary artery without angina pectoris; I51.81 Takotsubo syndrome; K21.9 Gastro-esophageal reflux disease without esophagitis; E78.00 Pure hypercholesterolemia, unspecified; E55.9 Vitamin D deficiency, unspecified; F41.1 Generalized anxiety disorder; I10 Essential (primary) hypertension

== ENCOUNTER → 2024-10-08 11:32 | Outpatient (BNVA) | payer OTHER, SELFPAY | PROVIDERS: PCP Internal Medicine | DX: Z00.00 Encounter for general adult medical examination without abnormal findings (principal); J45.20 Mild intermittent asthma, uncomplicated; I25.10 Atherosclerotic heart disease of native coronary artery without angina pectoris; E66.9 Obesity, unspecified; I51.81 Takotsubo syndrome; K21.9 Gastro-esophageal reflux disease without esophagitis; E78.00 Pure hypercholesterolemia, unspecified; E55.9 Vitamin D deficiency, unspecified; F41.1 Generalized anxiety disorder; I73.9 Peripheral vascular disease, unspecified; I10 Essential (primary) hypertension; H91.90 Unspecified hearing loss, unspecified ear | CPT/HCPCS: 96127; 99397 ==

== ENCOUNTER 2024-10-19 11:10 | Outpatient (AMB) | payer OTHER, SELFPAY ==
[2024-10-19 11:14] VITALS: BP 150/62; PULSE 80; O2SAT 97; BMI 34.4
--- NOTE | 2024-10-19 11:14 | HO.NEPHOV ---
Vital Signs 10/19/24 11:14 Height 5 ft 1 in Weight 182 lb BMI 34.4 BP 150/62 H Blood Pressure Location Rt brachial Position Sitting Pulse 80 Pulse Source Pulse Oximeter Pulse Oximetry (%) 97 Oxygen Delivery Method Room Air Intake Visit Reasons: Pt missed 09/15/24 appt/ Conf Food Service Manager Required: No Food Service Manager Services: Food Service Manager Offered & Declined (JUNIOR ELECTRICAL ENGINEER will translate) Accompanied by: JUNIOR ELECTRICAL ENGINEER Allergies Penicillins Allergy (Severe, Verified 10/19/24 11:16) DIFFICULTY BREATHING atorvastatin [From Lipitor] Allergy (Unknown, Verified 10/19/24 11:16) Unknown FRUITS Allergy (Intermediate, Uncoded 10/08/24 11:39) ITCHY THROAT, HOARSE VOICE SOMETIMES SOB bisoprolol Adverse Reaction (Intermediate, Uncoded 10/08/24 11:39) Bradycardia Medication List - Last Reconciled 10/19/24 by Jerry Brown MD [AIR PURIFIER As directed] albuterol sulfate 90 mcg/actuation (Ventolin HFA) 2 puffs inhalation Q6H PRN amlodipine-benazepril 10-40 mg 1 cap PO DAILY 90 days aspirin (Adult Low Dose Aspirin) 81 mg PO DAILY cholecalciferol (vitamin D3) 50 mcg PO DAILY 90 days compr.stocking,thigh,reg,large As directed 20-30 mm HG [Hand held step stool ] lidocaine 4% (Aspercreme (lidocaine)) 1 patch topical DAILY PRN omeprazole 20 mg PO DAILY@0630 potassium chloride ER (Klor-Con M) 10 mEq PO DAILY rosuvastatin 40 mg PO DAILY sertraline 25 mg PO DAILY spironolactone 50 mg PO BID [step stool with handle As directed] HPI Comments Details: 78-year-old woman with a history of resistant hypertension with hypokalemia. Previously she was seen a year ago. Subsequently lost to follow-up. Currently she is accompanied by her JUNIOR ELECTRICAL ENGINEER. Her blood pressure has been elevated and she has had episodes of hypokalemia. Currently she is on lisinopril along with potassium supplementation and Aldactazide. Today she denies any new complaints no nausea vomiting no polyuria polydipsia no edema. 05/19/2024. Home blood pressure readings are excellent. Accompanied by caregiver. No specific complaints today. She walks about 20-30 minutes every day [facility] Medical History Peripheral vascular disease Hypokalemia Age-related osteoporosis without current pathological fracture Uncontrolled hypertension COVID-19 vaccine series completed Mitral regurgitation Hypertension Hypercholesterolemia Ischemic colitis Bile salt-induced diarrhea GERD (gastroesophageal reflux disease) Vaginal vault prolapse Anxiety Cardiomyopathy Obesity (BMI 30-39.9) Asthma Coronary artery disease Surgical History History of neck surgery History of thumb surgery History of tubal ligation History of cholecystectomy Family History Father Cancer Mother Cancer Social History Household Members: None Housing: Apartment Do you presently have visiting nurse or other home services: Yes Alcohol intake: never Patient Tobacco Use Status: Never used Tobacco e-Cigarette/Vaping Use: Never Used Second Hand Smoke Exposure: No service: No Current occupational status: disabled Cognitive needs: No Hearing needs: No Vision needs: Yes Physical Exam Vital Signs: Last Vital Signs Pulse 80 10/19/24 11:14 BP 150/62 H 10/19/24 11:14 Pulse Ox 97 10/19/24 11:14 Oxygen Delivery Method Room Air 10/19/24 11:14 BMI result Body Mass Index 34.4 Results Reviewed Results Reviewed: 10/01/2023. Serum aldosterone to Plasma renin 0.16 Nephrology Results: No Data to Display Assessment & Plan Assessment & Plan (1) Hypokalemia: Code(s): E87.6 - Hypokalemia Category: Medical (2) Resistant hypertension: Code(s): I10 - Essential (primary) hypertension Category: Medical Plan Elderly woman with resistant hypertension and hypokalemia. No significant alkalosis With the combination of alkalosis and hypokalemia , hyperaldosteronism is a possibility. However aldosterone level is low at 2 and PA/PRA ratio is 12.5 Unable to rule out a component of white coat effect. (Initial blood pressure was 150/80 however when I checked it blood pressure was 200/90 mmHg.) 24 hours ABPM shows reasonably controlled HTN with 24 hr average SBP of 133 WITH superimposed white coat effect. - SBP 165 in office Low salt diet Keep current meds Keep Lotrel 03/16 one a day. spironolactone 50 mg b.i.d. Orders: Orders Basic Metabolic Panel 4 Months E87.6 - Hypokalemia, I10 - Essential (primary) hypertension Coding Level of Care Code Est Pt Level 4 (90834) Diagnoses Hypokalemia E87.6 Resistant hypertension I10
== END 2024-10-19 11:38 | disposition home or self-care (01) ==
PROVIDERS: PCP Internal Medicine; Visit Provider Internal Medicine Hypertension Specialist
DX: E87.6 Hypokalemia (principal); I10 Essential (primary) hypertension
CPT/HCPCS: 99214

== ENCOUNTER → 2024-10-19 11:10 | Outpatient (BNVA) | payer OTHER, SELFPAY | PROVIDERS: PCP Internal Medicine; Visit Provider Internal Medicine Hypertension Specialist | DX: E87.6 Hypokalemia (principal); I1A.0 Resistant hypertension | CPT/HCPCS: 99212 ==

== ENCOUNTER 2025-01-12 09:51 | Outpatient (AMB) | payer OTHER, SELFPAY ==
--- NOTE | 2025-01-12 10:29 | A.OFFPC_ITS ---
Vital Signs 01/12/25 10:32 Height 5 ft 1 in Weight 173 lb BMI 32.7 BP 152/88 H Blood Pressure Location Lt brachial Position Sitting Pulse 76 Pulse Source Pulse Oximeter Pulse Oximetry (%) 95 Oxygen Delivery Method Room Air Intake Visit Reasons: Hypertension Allergies Penicillins Allergy (Severe, Verified 01/12/25 10:33) DIFFICULTY BREATHING atorvastatin [From Lipitor] Allergy (Unknown, Verified 01/12/25 10:33) Unknown FRUITS Allergy (Intermediate, Uncoded 01/12/25 10:33) ITCHY THROAT, HOARSE VOICE SOMETIMES SOB bisoprolol Adverse Reaction (Intermediate, Uncoded 01/12/25 10:33) Bradycardia Medication List - Last Reconciled 01/12/25 by Radha Eden MD [AIR PURIFIER As directed] albuterol sulfate 90 mcg/actuation (Ventolin HFA) 2 puffs inhalation Q6H PRN amlodipine-benazepril 10-40 mg 1 cap PO DAILY 90 days aspirin (Adult Low Dose Aspirin) 81 mg PO DAILY cholecalciferol (vitamin D3) 50 mcg PO DAILY 90 days compr.stocking,thigh,reg,large As directed 20-30 mm HG [Hand held step stool ] lidocaine 4% (Aspercreme (lidocaine)) 1 patch topical DAILY PRN omeprazole 20 mg PO DAILY@0630 potassium chloride ER (Klor-Con M) 10 mEq PO DAILY rosuvastatin 40 mg PO DAILY sertraline 25 mg PO DAILY spironolactone 50 mg PO BID [step stool with handle As directed] Tobacco use date assessed: 01/12/25 Fall risk assessment: No Falls in past year Last assessed Fall Risk: 01/12/25 Dental Screening Dental Screen Date: 01/12/25 Did you have a dental visit in the last 12 months?: Yes Did you have a dental problem in the last 6 months where you did not have access to dental care?: No Was dental information given to patient?: Patient has dentist [facility] Medical History Peripheral vascular disease Hypokalemia Age-related osteoporosis without current pathological fracture Uncontrolled hypertension COVID-19 vaccine series completed Mitral regurgitation Hypertension Hypercholesterolemia Ischemic colitis Bile salt-induced diarrhea GERD (gastroesophageal reflux disease) Vaginal vault prolapse Anxiety Cardiomyopathy Obesity (BMI 30-39.9) Asthma Coronary artery disease Surgical History History of neck surgery History of thumb surgery History of tubal ligation History of cholecystectomy Family History Father Cancer Mother Cancer Social History Household Members: None Housing: Apartment Do you presently have visiting nurse or other home services: Yes Alcohol intake: never Patient Tobacco Use Status: Never used Tobacco Tobacco use type: Cigarette e-Cigarette/Vaping Use: Never Used Second Hand Smoke Exposure: No service: No Current occupational status: disabled Cognitive needs: No Hearing needs: No Vision needs: Yes Questionnaire PHQ-9 Over the last 2 weeks, how often have you been bothered by any of the following problems? 1. Little interest or pleasure in doing things: not at all 2. Feeling down, depressed, or hopeless: not at all 3. Trouble falling or staying asleep, or sleeping too much: not at all 4. Feeling tired or having little energy: not at all 5. Poor appetite or overeating: not at all 6. Feeling bad about yourself - or that you are a failure or have let yourself or your family down: not at all 7. Trouble concentrating on things, such as reading the newspaper or watching television: not at all 8. Moving or speaking so slowly that other people could have noticed. Or the opposite - being so fidgety or restless that you have been moving around a lot more than usual: not at all 9. Thoughts that you would be better off or of hurting yourself in some way: not at all Total score: 0 Depression Screening Interpretation: Negative Depression Screening Done: Yes Source: Developed by Drs. Caleb Xiao, Donna Torres, Antony Tovar and colleagues, with an educational pao from [employer]. Thrive Questionnaire Date Thrive assessed: 01/12/25 I am a: Patient What is your living situation today?: I have a steady place to live Within the past 12 months, did the food you bought not last and you didn't have the money to get more?: Never true Within the past 12 months, did you worry whether your food would run out before you got money to buy more?: Never true Do you have trouble paying for medicines?: No Do you have trouble getting transportation to medical appointments?: No Do you have trouble paying your heating and electricity bill?: No Do you have trouble taking care of your child, family member or friend?: No Do you have trouble with day-to-day activities such as bathing, preparing meals, shopping, managing finances, etc.?: No Are you currently unemployed and looking for a job?: No Are you interested in more education?: No Currently or been in a relationship where the following occur: No concerns reported THRIVE Score: 0 AUDIT C Alcohol Use Questionnaire (AUDIT-C) 1. How often do you have a drink containing alcohol?: Never Total Score: 0 JERALD-7 AMB Questionnaire JERALD-7 Date JERALD - 7 assessed: 01/12/25 Feeling nervous, anxious, or on edge: 0 = Not at all Not being able to stop or control worryin = Not at all Worrying too much about different things: 0 = Not at all Trouble relaxin = Not at all Being so restless that it is hard to sit still: 0 = Not at all Becoming easily annoyed or irritable: 0 = Not at all Feeling afraid as if something awful might happen: 0 = Not at all Total JERALD-7 score (0-4 normal; 5-9 mild; 10-14 moderate; 15-21 severe): 0 Source: Developed by Drs. Caleb Xiao, Donna Torres, Antony Tovar and colleagues, with an educational pao from [employer]. Physical exam (Primary Care) Vital Signs: Last Vital Signs Pulse 76 01/12/25 10:32 BP 152/88 H 01/12/25 10:32 Pulse Ox 95 01/12/25 10:32 Oxygen Delivery Method Room Air 01/12/25 10:32 BMI result Body Mass Index 32.7 Tobacco/Smoking Status: Tobacco use Status Tobacco use date assessed 01/12/25 01/12/25 10:34 Patient Tobacco Use Status Never used Tobacco 01/12/25 10:34 Tobacco use type Cigarette 01/12/25 10:34 e-Cigarette/Vaping Use Never Used 01/12/25 10:34 PHQ-9: PHQ-9 Score PHQ-9: Total score 0 01/12/25 10:49 Depression Screening Interpretation: Negative Thrive Assessment: Date of Thrive Assessment Date Thrive assessed 01/12/25 01/12/25 10:34 Currently or been in a relationship where the following occur: No concerns reported Const General: alert; No acute distress Eyes Conjunctivae: conjunctivae normal Resp Auscultation: clear to auscultation bilaterally Cardio Rate: regular rate Rhythm: regular rhythm GI Inspection: Yes normal to inspection Extrem General: Yes normal to inspection and No edema Coding Level of Care Code Est Pt Level 4 (40404) Complex EM visit Add On G2211 Diagnoses Resistant hypertension I10 Coronary artery disease involving [place] coronary artery of [place] heart without angina pectoris I25.10 Associated angina: without angina Coronary Disease-Associated Artery/Lesion type: [place] artery [place] vs. transplanted heart: [place] heart Obesity (BMI 30-39.9) E66.9 Mild intermittent asthma without complication J45.20 Asthma complication type: uncomplicated Asthma persistence: intermittent Asthma severity: mild Gastroesophageal reflux disease without esophagitis K21.9 Esophagitis presence: without esophagitis Hypercholesterolemia E78.00 Generalized anxiety disorder F41.1 Assessment & Plan Assessment & Plan (1) Resistant hypertension: Code(s): I10 - Essential (primary) hypertension Category: Medical Plan: Continue with blood pressure medication. Decrease salt intake and exercise patient follows up with Nephrology ambulatory blood pressure monitor shows reasonably controlled patient does have white coat hypertension on Lotrel and spironolactone (2) Coronary artery disease: Comment: NSTMI October 2011 stress cardiomyopathy son May 2014 Dr. Joyce, April 2016 echo May 2019 EF 50-55% moderate aortic regurg, 2021The left ventricular systolic function is normal. The calculated ejection fraction is 67% by biplane method. - There is mild aortic valve regurgitation. Code(s): I25.10 - Atherosclerotic heart disease of [place] coronary artery without angina pectoris Category: Medical Qualifiers: Associated angina: without angina Coronary Disease-Associated Artery/Lesion type: [place] artery [place] vs. transplanted heart: [place] heart Qualified Code(s): I25.10 - Atherosclerotic heart disease of [place] coronary artery without angina pectoris Plan: Control the cholesterol, weight, blood pressure,on aspirin 81 mg once a day (3) Obesity (BMI 30-39.9): Code(s): E66.9 - Obesity, unspecified Category: Medical Plan: Diet and exercise (4) Asthma: Code(s): J45.909 - Unspecified asthma, uncomplicated Category: Medical Qualifiers: Asthma complication type: uncomplicated Asthma persistence: intermittent Asthma severity: mild Qualified Code(s): J45.20 - Mild intermittent asthma, uncomplicated (5) GERD (gastroesophageal reflux disease): Code(s): K21.9 - Gastro-esophageal reflux disease without esophagitis Category: Medical Qualifiers: Esophagitis presence: without esophagitis Qualified Code(s): K21.9 - Gastro-esophageal reflux disease without esophagitis Plan: Avoid the foods that causes that usually spicy foods, tomato products, juices, coffee, soda and foods that your sensitive to. After eating do not lie down, allow 3-4 hours before in lie down. And keep the head of bed above 30 degrees to avoid the acid from going up. (6) Hypercholesterolemia: Code(s): E78.00 - Pure hypercholesterolemia, unspecified Category: Medical Plan: Avoid fried foods, chicken skin, eggs, butter margarine, pastries and meat. Be it pork or beef they have a lot of cholesterol LDL goal of less than 100 and triglyceride of less than 150 on rosuvastatin 40 mg once a day (7) Generalized anxiety disorder: Comment: declined referral (12/2023) Code(s): F41.1 - Generalized anxiety disorder Category: Medical Plan: Continue with therapy Plan History of Present Illness The patient is a 79-year-old female presenting for follow-up regarding ongoing management of hypertension and other chronic medical conditions. The patient has a medical history of coronary artery disease, asthma, cardiomyopathy, gastroesophageal reflux disease, hypercholesterolemia, and obesity. Since her last visit in September 2024, she has noted a weight loss of 9 pounds attributed to dietary changes and weight management efforts, indicating progress in a ddressing obesity-related concerns. In September 2024, she underwent a comprehensive physical examination, which included an up-to-date mammogram. She has previously undergone a colon test in 2018 and was documented to have a normal bone density exam in August 2022. Additionally, the patient has a history of mild anemia, with blood work in August revealing hemoglobin at 11.4 g/dL and hematocrit at 33.4%; though electrolytes are stable and renal function is within normal limits. During her recent consultations with ophthalmology and nephrology in September, she was advised to use a 24-hour ambulatory blood pressure monitor, which demonstrated reasonably controlled hypertension with an average of 133 mmHg under Lotrel 5/20 mg once daily and spironolactone 50 mg twice daily. Further investigations showed controlled LDL cholesterol levels at 104 mg/dL, aligning with her cholesterol management goals. Health Maintenance - Mammogram up to date as of September 2024. - Bone density test normal in August 2022. - Colon test was done in 2017. - 24-hour ambulatory blood pressure monitoring. - Weight management progress with dietary modifications. Social History - The patient lives on the 11th floor, expressing concerns about environmental dust affecting her respiratory symptoms. - Discounted the notion of obtaining a lower floor apartment due to air quality issues on the 11th floor. Review of Systems - Respiratory: Reports difficulty breathing, particularly related to perceived environmental dust. Physical Exam Results - Labs: Recent blood work showed mild anemia with hemoglobin at 11.4 g/dL, hematocrit at 33.4%, LDL cholesterol at 104 mg/dL. - Tests and Diagnostics: 24-hour ambulatory blood pressure monitoring indicating reasonable control under the current medication regimen. Plan I will continue to manage the patient's hypertension with her current medication regimen, following up with ambulatory blood pressure monitoring to ensure control. Maintenance of coronary artery disease treatment includes a daily aspirin regimen alongside continued lifestyle modifications. The patient's cholesterol levels are targeted to remain under control, using rosuvastatin t herapy to meet lipid goals. Her asthma and respiratory symptoms will be managed with albuterol and newly prescribed Astelin nasal spray to address dust allergies. I will ensure updated blood work is conducted, particularly fasting labs to evaluate ongoing anemia and monitor electrolytes and kidney function considering current therapies. Patient was informed and verbally consented to the use of an ambient scribe for clinic note documentation during this visit. Discussion Notes During our discussion, I explained the ongoing need for monitoring hypertension using ambulatory blood pressure data, reinforcing the effectiveness of her current treatment regimen. Weight management and dietary adjustments were acknowledged as beneficial to her health goals. We discussed the management of coronary artery disease with lifestyle changes and stable use of aspirin. I reiterated the significance of maintaining cholesterol levels and highlighted the asthma care plan, incorporating a nasal spray to mitigate her symptoms related to environmental allergies. Given her detailed history of ocular pressure, I discussed potential risks of steroid-based nasal sprays and opted for an alternative. Follow-ups were planned to reassess medication efficacy and perform necessary fasting laboratory evaluations. Patient Instructions - Continue antihypertensive medications as prescribed. - Maintain lifestyle modifications, including dietary management and exercise. - Use albuterol inhaler as needed for asthma symptoms. - Administer Astelin nasal spray for respiratory difficulty related to allergens. - Obtain fasting blood work for anemia and kidney function monitoring. - Follow up as scheduled for ongoing evaluation and management. Orders: Orders Thyroid Stimulating Hormone Today I25.10 - Atherosclerotic heart disease of [place] coronary artery without angina pectoris Vitamin D 25-OH Total Today I25.10 - Atherosclerotic heart disease of [place] coronary artery without angina pectoris Hemoglobin A1c Today I25.10 - Atherosclerotic heart disease of [place] coronary artery without angina pectoris Complete Blood Count Auto Diff Today I25.10 - Atherosclerotic heart disease of [place] coronary artery without angina pectoris Comprehensive Met. Panel Today I25.10 - Atherosclerotic heart disease of [place] coronary artery without angina pectoris Free T4 (Free Thyroxine) Today I25.10 - Atherosclerotic heart disease of [place] coronary artery without angina pectoris Lipid Panel Today E78.00 - Pure hypercholesterolemia, unspecified, I25.10 - Atherosclerotic heart disease of [place] coronary artery without angina pectoris Vitamin B12 and Folate Today I25.10 - Atherosclerotic heart disease of [place] coronary artery without angina pectoris Magnesium Today I25.10 - Atherosclerotic heart disease of [place] coronary artery without angina pectoris Medications: New azelastine administer into each nostril 137 mcg (0.137 mL) intranasal BID 30 mL 0RF I25.10 - Atherosclerotic heart disease of [place] coronary artery without angina pectoris
[2025-01-12 10:32] VITALS: BP 152/88; PULSE 76; O2SAT 95; BMI 32.7
== END 2025-01-12 11:04 | disposition home or self-care (01) ==
LOC: HO.HMCH 09:51
PROVIDERS: PCP Internal Medicine; Visit Provider Internal Medicine
DX: I10 Essential (primary) hypertension (principal); I25.10 Atherosclerotic heart disease of native coronary artery without angina pectoris; E66.9 Obesity, unspecified; Z68.32 Body mass index [BMI] 32.0-32.9, adult; J45.20 Mild intermittent asthma, uncomplicated; K21.9 Gastro-esophageal reflux disease without esophagitis; E78.00 Pure hypercholesterolemia, unspecified; F41.1 Generalized anxiety disorder

== ENCOUNTER → 2025-01-12 09:51 | Outpatient (BNVA) | payer OTHER, SELFPAY | PROVIDERS: PCP Internal Medicine; Visit Provider Internal Medicine | DX: I10 Essential (primary) hypertension (principal); I25.10 Atherosclerotic heart disease of native coronary artery without angina pectoris; E66.9 Obesity, unspecified; J45.20 Mild intermittent asthma, uncomplicated; K21.9 Gastro-esophageal reflux disease without esophagitis; E78.00 Pure hypercholesterolemia, unspecified; F41.1 Generalized anxiety disorder | CPT/HCPCS: 99212 ==

== ENCOUNTER 2025-02-04 09:26 | Outpatient (REF) | payer OTHER, SELFPAY ==
[2025-02-04 09:46] LABS: MANUAL DIFF FLAG NO
--- OUTSIDE RECORDS SUMMARY | 2025-02-04 10:21 | XMS_ITS | Clinical Summary ---
Author Organization Formerly [facility] Facility Address [address] [address] Care Team Providers Care Project Management Analyst Name Role Phone Radha Eden MD Primary Care Provider [phone] Allergies Active Allergy Reactions Criticality Noted Date Comments Penicillin V Other (see comments) 08/30/2022 Medications amLODIPine (NORVASC) 10 MG tablet Take 1 tablet by mouth 1 (one) time each day Active aspirin (ST GLYNN) 81 MG EC tablet Take 1 tablet by mouth 1 (one) time each day Active cholecalciferol (VITAMIN D-3) 25 MCG (1000 UT) capsule Take 1 capsule by mouth 1 (one) time each day Active famotidine (PEPCID) 20 MG tablet Take 1 tablet by mouth in the morning and 1 tablet in the evening. Active isosorbide dinitrate (ISORDIL) 30 MG tablet Take 1 tablet by mouth 1 (one) time each day Active rosuvastatin (CRESTOR) 20 MG tablet Take 1 tablet by mouth 1 (one) time each day Active omeprazole (PriLOSEC) [address] capsule Take 20 mg by mouth 1 (one) time each day 07/10/2022 Active clindamycin (CLEOCIN) 150 MG capsule Take 150 mg by mouth 1 (one) time each day 08/03/2022 Active Albuterol Sulfate 108 (90 Base) MCG/ACT aerosol powder 2 puffs by Other route every 4 (four) hours Active bisoprolol (ZEBETA) 10 MG tablet Take 10 mg by mouth in the morning and 10 mg in the evening. 09/11/2022 Active spironolactone- hydroCHLOROthia zide (Aldactazide) 25-25 MG per tablet Take 1 tablet by mouth 1 (one) time each day 60 tablet 1 09/24/2022 Active Active Problems Problem Noted Date Diagnosed Date Essential hypertension 08/30/2022 Immunizations Immunization Administration Dates Next Due Influenza Split High Dose Preservative Free IM 1 Pneumococcal Polysaccharide 07/01/2015 Family History Medical History Relation Comments Cancer Father prostate Cancer Mother stomach Heart disease Mother aunt Cancer Sibling brother stomach Relation Status Comments Father Mother Sibling Social History Tobacco Use Types Packs/Day Years Used Date Smoking Tobacco: Never Smokeless Tobacco: Never Tobacco Cessation:Counseling Given: Not Answered Alcohol Use Standard Drinks/Week Comments No 0 (1 standard drink = 0.6 oz pur e alcohol) Comments Unknown Sex and Gender Information Value Date Recorded Sex Assigned at Not on file Legal Sex Female 4:41 PM EST Gender Identity Not on file Sexual Orientation Not on file Last Filed Vital Signs Vital Sign Reading Time Taken Comments Blood Pressure 178/72 09/24/2022 3:09 PM EST Pulse 51 09/24/2022 3:09 PM EST Temperature - - Respiratory Rate - - Oxygen Saturation 99% 09/24/2022 3:09 PM EST Inhaled Oxygen Concentration - - Weight 84.7 kg (186 lb 12.8 oz) 09/24/2022 3:09 PM EST Height - - Body Mass Index - - Plan of Treatment Health Maintenance Due Date Last Done Comments Pneumococcal Vaccine: 50+ Ye ars (2 of 2 - PCV) 07/01/2016 07/01/2015 Influenza Vaccine (Season Ended) 2025 08/10/20 15 Hepatitis B Vaccine Aged Out No longe r eligible based on patient's age to complete this topic [place] [address] [place] [id number] [facility] ([id number]) HIRAM GOMEZ [phone] [address] [id number] [facility] ([id number]) HIRAM GOMEZ [phone] Care Teams Project Management Analyst Relationship Specialty Start Date End Date Radha Eden MD [facility] [address] [place] PCP - General 11/07/20
--- OUTSIDE RECORDS SUMMARY | 2025-02-04 10:21 | XMS_ITS | Clinical Summary ---
Author Organization [employer] Address [address] [place] [address] Care Team Providers Care Filler Picker Name Role Phone Unavailable Primary Care Provider Unavailabl e Immunizations Name Administration Dates Next Due Moderna Covid-19 Vaccine 6+ Bivalent 11/22/2022 Social History Tobacco Use Types Packs/Day Years Used Date Smoking Tobacco: Never Assessed Comments Unknown Sex and Gender Information Value Date Recorded Sex Assigned at Female 08/27/2022 10:14 AM EDT Legal Sex Female 10:14 AM EDT Gender Identity Choose not to disclose 2 10:14 AM EDT Sexual Orientation Choose not to disclose 2021 10:14 AM EDT Plan of Treatment Health Maintenance Due Date Last Done Comments Depression Screening 1945 Alcohol/Substance Use Screening 1959 Tobacco Screening 1957 Zoster Vaccines (2 of 2) 08/13/2019 06/18/2019 RSV Patients and Patients Aged 60 years or older (1 - 1-dose 75+ series) 2022 COVID-19 Vaccine ( season) 2024 11/22/2022, 10/23/2021, 03/09/2021, Additional history exists Influenza Vaccine (#1) 2024 2, 08/01/2021, 10/26/2020, Additional history exists DTaP/Tdap/Td Vaccines (2 - Td or Tdap) 10/18/2026 10/18/2016 Pneumococcal Vaccine: 50+ Years Completed 10/08/2022, 07/13/2015, 07/01/2015, Additional history exists HIB Vaccines Aged Out No longer eligi ble based on patient's age to complete this topic HPV Vaccines Aged Out No longer eligi ble based on patient's age to complete this topic Hepatitis A Vaccines Aged Out No long er eligible based on patient's age to complete this topic Hepatitis B Vaccines Aged Out No long er eligible based on patient's age to complete this topic IPV Vaccines Aged Out No longer eligi ble based on patient's age to complete this topic Meningococcal Vaccine Aged Out No ashlyn serafin eligible based on patient's age to complete this topic RSV under 20 months Aged Out No longe r eligible based on patient's age to complete this topic Rotavirus Vaccines Aged Out No longer eligible based on patient's age to complete this topic
[2025-02-04 10:27] LABS: Basophils Percent Auto 0.6 % (0-2); Eosinophils Absolute Auto 0.1 X10*3/uL (0.0-0.4); Eosinophils Percent Auto 1.8 % (0-4); Hematocrit 33.8 % (37.0-47.0); Hemoglobin 11.4 g/dl (12.0-16.0); Imm Gran Abs Auto 0.02 X10*3/uL (0.00-0.03); Imm Gran Pct Auto 0.4 % (0.0-0.4); Lymphocytes Absolute Auto 1.4 X10*3/uL (1.2-4.9); Lymphocytes Percent Auto 27.9 % (20-40); Mean Corpuscular HGB Conc 33.7 g/dl (31.0-35.0); Mean Corpuscular Volume 91.8 fL (80.0-98.0); Mean Platelet Volume 10.1 fL (9.4-12.3); Monocytes Absolute Auto 0.4 X10*3/uL (0.1-1.2); Monocytes Percent Auto 7.1 % (2-11); Neutrophils Absolute Auto 3.2 x10*3/uL (2.0-8.3); Neutrophils Percent Auto 62.2 % (45-73); Platelet Count 272 X10*3/uL (160-400); Red Blood Count 3.68 X10*6/uL (4.20-5.50); Red Cell Distribution Width 12.9 % (11.0-16.0); White Blood Count 5.1 X10*3/uL (4.8-10.8)
[2025-02-04 10:31] LABS: Estimated Average Glucose 103 mg/dL; Hemoglobin A1C 100.9198 umol/L; Hemoglobin A1c % 5.2 % (<6.0); Total Hemoglobin (HGBA1C) 3028.0269 umol/L
[2025-02-04 11:18] LABS: Alanine Aminotransferase 13 U/L (0-31); Alkaline Phosphatase 78 U/L (39-117); Anion Gap 12 (12-20); Aspartate Amino Transferase 31 U/L (5-31); Bilirubin Total 0.6 mg/dL (0.0-1.0); Blood Urea Nitrogen 13 mg/dL (9-16); Calcium 9.2 mg/dL (8.4-10.2); Carbon Dioxide 28 mmol/L (22-29); Chloride 108 mmol/L (96-108); Cholesterol 174 mg/dL (<200); Estimated Glomerular Filt Rate > 60; Glucose Random 84 mg/dL (60-115); HDL Cholesterol 45 mg/dL (>40); LDL Cholesterol Calculated 112 mg/dL (<100); Magnesium 1.6 mg/dL (1.6-2.6); Potassium 3.5 mmol/L (3.3-5.1); Sodium 144 mmol/L (135-145); Total Protein 6.9 g/dL (6.5-8.0); Triglycerides 87 mg/dL (<150)
[2025-02-04 11:34] LABS: Free T4 (Free Thyroxine) 0.94 ng/dL (0.71-1.85); Vitamin D 25-OH Total 15.5 ng/mL (>30)
[2025-02-04 11:38] LABS: Thyroid Stimulating Hormone 0.86 uIU/mL (0.32-4.0)
[2025-02-04 11:45] LABS: Vitamin B12 634 pg/mL (200-900)
== END 2025-02-04 09:27 | disposition home or self-care (01) ==
LOC: HO.LAB 09:26
PROVIDERS: Absent Provider Internal Medicine; PCP Internal Medicine; Visit Provider Internal Medicine Hypertension Specialist
DX: I25.10 Atherosclerotic heart disease of native coronary artery without angina pectoris (principal); E78.00 Pure hypercholesterolemia, unspecified; Z13.1 Encounter for screening for diabetes mellitus
CPT/HCPCS: 36415; 80053; 80061; 82306; 82607; 82746; 83036; 83735; 84439; 84443; 85025

== ENCOUNTER 2025-02-16 09:56 | Outpatient (AMB) | payer OTHER, SELFPAY ==
[2025-02-16 09:57] VITALS: BP 150/80; PULSE 72; O2SAT 98; BMI 32.9
--- NOTE | 2025-02-16 09:57 | HO.NEPHOV_ITS ---
Vital Signs 02/16/25 09:57 Height 5 ft 1 in Weight 174 lb 2 oz BMI 32.9 BP 150/80 H Blood Pressure Location Rt brachial Position Sitting Pulse 72 Pulse Source Pulse Oximeter Pulse Oximetry (%) 98 Oxygen Delivery Method Room Air Intake Visit Reasons: Hypokalemia/ LVM Accompanied by: Daughter Allergies Penicillins Allergy (Severe, Verified 02/16/25 09:58) DIFFICULTY BREATHING atorvastatin [From Lipitor] Allergy (Unknown, Verified 02/16/25 09:58) Unknown FRUITS Allergy (Intermediate, Uncoded 02/16/25 09:58) ITCHY THROAT, HOARSE VOICE SOMETIMES SOB bisoprolol Adverse Reaction (Intermediate, Uncoded 02/16/25 09:58) Bradycardia Medication List - Last Reconciled 02/16/25 by Jerry Brown MD [AIR PURIFIER As directed] albuterol sulfate 90 mcg/actuation (Ventolin HFA) 2 puffs inhalation Q6H PRN amlodipine-benazepril 10-40 mg 1 cap PO DAILY 90 days aspirin (Adult Low Dose Aspirin) 81 mg PO DAILY azelastine 137 mcg (0.137 mL) intranasal BID cholecalciferol (vitamin D3) 50 mcg PO DAILY 90 days compr.stocking,thigh,reg,large As directed 20-30 mm HG [Hand held step stool ] lidocaine 4% (Aspercreme (lidocaine)) 1 patch topical DAILY PRN omeprazole 20 mg PO DAILY@0630 potassium chloride ER (Klor-Con M) 10 mEq PO DAILY rosuvastatin 40 mg PO DAILY sertraline 25 mg PO DAILY spironolactone 50 mg PO BID [step stool with handle As directed] HPI Comments Details: 78-year-old woman with a history of resistant hypertension with hypokalemia. Previously she was seen a year ago. Subsequently lost to follow-up. Currently she is accompanied by her ORACLE DATABASE MANAGER. Her blood pressure has been elevated and she has had episodes of hypokalemia. C urrently she is on lisinopril along with potassium supplementation and Aldactazide. Today she denies any new complaints no nausea vomiting no polyuria polydipsia no edema. 05/19/2024. Home blood pressure readings are excellent. Accompanied by caregiver. No specific complaints today. She walks about 20-30 minutes every day 02/16/25 DOing well. No new issues Accompanied by daughter- Aden[facility] Medical History Peripheral vascular disease Hypokalemia Age-related osteoporosis without current pathological fracture Uncontrolled hypertension COVID-19 vaccine series completed Mitral regurgitation Hypertension Hypercholesterolemia Ischemic colitis Bile salt-induced diarrhea GERD (gastroesophageal reflux disease) Vaginal vault prolapse Anxiety Cardiomyopathy Obesity (BMI 30-39.9) Asthma Coronary artery disease Surgical History History of neck surgery History of thumb surgery History of tubal ligation History of cholecystectomy Family History Father Cancer Mother Cancer Social History Household Members: None Housing: Apartment Do you presently have visiting nurse or other home services: Yes Alcohol intake: never Patient Tobacco Use Status: Never used Tobacco Tobacco use type: Cigarette e-Cigarette/Vaping Use: Never Used Second Hand Smoke Exposure: No service: No Current occupational status: disabled Cognitive needs: No Hearing needs: No Vision needs: Yes Physical Exam Vital Signs: Last Vital Signs Pulse 72 02/16/25 09:57 BP 150/80 H 02/16/25 09:57 Pulse Ox 98 02/16/25 09:57 Oxygen Delivery Method Room Air 02/16/25 09:57 BMI result Body Mass Index 32.9 Const General: comfortable; No acute distress Orientation/consciousness: patient oriented x3 Eyes General: appearance normal, both eyes and all related structures Visual Agarwal: normal visual agarwal by confrontation Neck Neck: Yes supple and Yes no JVD Resp Effort & Inspection: normal respiratory effort and respiratory effort not decreased Cardio Palpation: no palpable S3 and no palpable S4 Heart sounds: no rubs GI Inspection: Yes normal to inspection Palpation (GI): Soft to palpation Percussion: Yes normal to percussion Auscultation: normal bowel sounds General: Yes no CVA tenderness Back/Spine/Pelvis Back: no CVA tenderness Skin General skin exam: no petechiae and no purpura Neuro General: patient oriented x3 and no focal motor deficits Extrem General: No clubbing and No edema Results Reviewed Nephrology Results: Hgb 11.4 g/dl (12.0-16.0) L 02/04/25 WBC 5.1 X10*3/uL (4.8-10.8) 02/04/25 Plt Count 272 X10*3/uL (160-400) 02/04/25 Sodium 144 mmol/L (135-145) 02/04/25 Potassium 3.5 mmol/L (3.3-5.1) 02/04/25 Chloride 108 mmol/L (96-108) 02/04/25 Carbon Dioxide 28 mmol/L (22-29) 02/04/25 BUN 13 mg/dL (9-16) 02/04/25 Creatinine 0.64 mg/dL (0.5-1.4) 02/04/25 Calcium 9.2 mg/dL (8.4-10.2) 02/04/25 Assessment & Plan Assessment & Plan (1) Hypokalemia: Code(s): E87.6 - Hypokalemia Category: Medical (2) Resistant hypertension: Code(s): I10 - Essential (primary) hypertension Category: Medical Plan Elderly woman with resistant hypertension and hypokalemia. No significant alkalosis With the combination of alkalosis and hypokalemia , hyperaldosteronism is a possibility. However aldosterone level is low at 2 and PA/PRA ratio is 12.5 24 hours ABPM shows reasonably controlled HTN with 24 hr average SBP of 133 WITH superimposed white coat effect. Low salt diet Keep current meds Keep Lotrel 5/20 one a day. spironolactone 50 mg b.i.d. Orders: Orders Basic Metabolic Panel 6 Months I10 - Essential (primary) hypertension Coding Level of Care Code Est Pt Level 4 (77362) Diagnoses Hypokalemia E87.6 Resistant hypertension I10
--- OUTSIDE RECORDS SUMMARY | 2025-02-16 11:11 | XMS_ITS | Clinical Summary ---
Author Organization [employer] Address [address] [place] [address] Care Team Providers Care Project Controls Specialist Name Role Phone Unavailable Primary Care Provider [...] this topic Meningococcal Vaccine Aged Out No aslhyn serafin eligible based on patient's age to complete this topic RSV under 20 months Aged Out No longe r eligible based on patient's age to complete this topic Rotavirus Vaccines Aged Out No longer eligible based on patient's age to complete this topic
--- OUTSIDE RECORDS SUMMARY | 2025-02-16 11:11 | XMS_ITS | Clinical Summary ---
Author Organization [facility] Facility Address [address] [address] Care Team Providers Care Credit Control Administrator Name Role Phone Radha Eden MD Primary Care Provider [phone] Allergies Active Allergy Reactions Criticality Noted Date [...] Influenza Vaccine (Season Ended) 2025 08/10/20 15 Pneumococcal Vaccine: Peds ( 0 to 5 Years) and At-Risk Patients (6 to 49 Years) Discontinued 07/01/2015 Hepatitis B Vaccine Aged Out No longe r eligible based on patient's age to complete this topic [place] [id number] [facility] ([id number]) [facility] ([id number]) Care Teams Credit Control Administrator Relationship Specialty Start Date End Date Radha Eden MD [facility] [address] [place] PCP - General 11/07/20
== END 2025-02-16 10:10 | disposition home or self-care (01) ==
LOC: HO.HKA 09:56
PROVIDERS: PCP Internal Medicine; Visit Provider Internal Medicine Hypertension Specialist
DX: E87.6 Hypokalemia (principal); I10 Essential (primary) hypertension
CPT/HCPCS: 99214

== ENCOUNTER → 2025-02-16 09:56 | Outpatient (BNVA) | payer OTHER, SELFPAY | PROVIDERS: PCP Internal Medicine; Visit Provider Internal Medicine Hypertension Specialist | DX: E87.6 Hypokalemia (principal); I10 Essential (primary) hypertension | CPT/HCPCS: 99212 ==

== ENCOUNTER 2025-03-23 08:44 | Outpatient (AMB) | payer OTHER, SELFPAY ==
--- NOTE | 2025-03-23 08:49 | MHC.OFFVIS ---
Vital Signs 03/23/25 08:50 Height 5 ft 1 in Weight 175 lb BMI 33.1 BP 146/68 H Blood Pressure Location Rt brachial Position Sitting Pulse 64 Pulse Source Pulse Oximeter Pulse Oximetry (%) 99 Oxygen Delivery Method Room Air Intake Visit Reasons: Rectal bleeding Intake Note: NEW PATIENT for eval rectal pain + bleeding. Prev colo w/ Dr. Austin 2017 + 2014. CC: C/O mucus build up in their stool as well as upper abd cramping during BMs. Pt reports being hospitalized in November 2024 @ [facility] for melena + abd pain. Comments that these sx have not persisted since being discharged from the hospital. Upon further examination of her chart, it appears that she was admitted in August 2024. Flowers Salesperson Required: Yes Flowers Salesperson Services: Flowers Salesperson Offered & Declined Accompanied by: Family/Other Allergies Penicillins Allergy (Severe, Verified 03/23/25 08:54) DIFFICULTY BREATHING atorvastatin [From Lipitor] Allergy (Unknown, Verified 03/23/25 08:54) Unknown FRUITS Allergy (Intermediate, Uncoded 03/23/25 08:54) ITCHY THROAT, HOARSE VOICE SOMETIMES SOB bisoprolol Adverse Reaction (Intermediate, Uncoded 03/23/25 08:54) Bradycardia HPI HPI Rectal bleeding: Details: 80-year-old female with past medical history of hypertension, gastroesophageal reflux disease, mixed hyperlipidemia, coronary artery disease, asthma is here today for initial consultation. Patient reports nausea, vomiting and dizziness after anesthesia. Patient reports she received scopolamine patch to help with symptoms. Patient was hospitalized in August of 2024 for blood in her stool and abdominal pain. CBC showed stable H & H. Of note, pt admitted in 2018 with similar symptoms and left sided colonoscopy showed ischemic colitis. Patient was monitored for 2 days and discharged home. Since that episode patient had no blood in her stool. Patient changed her diet. Eating healthier. Low-salt, low-fat meals. 2-3 bowel movements daily. Occasional acid reflux and takes omeprazole as needed. Patient is on low-dose aspirin. Denies family history of [facility] Medical History Peripheral vascular disease Hypokalemia Age-related osteoporosis without current pathological fracture Uncontrolled hypertension COVID-19 vaccine series completed Mitral regurgitation Hypertension Hypercholesterolemia Ischemic colitis Bile salt-induced diarrhea GERD (gastroesophageal reflux disease) Vaginal vault prolapse Anxiety Cardiomyopathy Obesity (BMI 30-39.9) Asthma Coronary artery disease Surgical History H/O colonoscopy History of neck surgery History of thumb surgery History of tubal ligation History of cholecystectomy Family History Father Cancer Mother Cancer Social History Household Members: None Housing: Apartment Do you presently have visiting nurse or other home services: Yes Alcohol intake: never Patient Tobacco Use Status: Never used Tobacco Tobacco use type: Cigarette e-Cigarette/Vaping Use: Never Used Second Hand Smoke Exposure: No service: No Current occupational status: disabled Cognitive needs: No Hearing needs: No Vision needs: Yes Review of Systems Const Denies weight gain and Denies weight loss ENT Reports no additional complaints, Denies dysphagia and Denies odynophagia Card Reports no additional complaints Resp Reports no additional complaints GI Denies abdominal pain, Denies belching, Denies melena, Denies bloating, Denies change in bowel habits, Denies dysphagia, Denies excessive flatus, Denies dyspepsia, Denies heartburn, Denies diarrhea, Denies loose stools, Denies nausea, Denies odynophagia and Denies vomiting Musc Reports no additional complaints Neuro Reports no additional complaints Psych Reports no additional complaints Endo Reports no additional complaints Physical Exam Vital Signs: BMI result Body Mass Index 33.1 Const General: healthy appearing, no acute distress and well developed Nutritional Appearance: well nourished Orientation/consciousness: patient oriented x3 Resp Effort & Inspection: normal respiratory effort, able to speak in complete sentences, no tracheal deviation and symmetric chest movement Auscultation: clear to auscultation bilaterally Cardio Rate: regular rate GI Inspection: Yes normal to inspection and No distended Palpation (GI): Soft to palpation, not firm, nontender and No hepatosplenomegaly present Auscultation: normal bowel sounds General: Yes no CVA tenderness Back/Spine/Pelvis Back: no CVA tenderness Skin General skin exam: elasticity normal, turgor normal and dry skin Neuro General: patient oriented x3 Psych Appearance: grossly normal Mental Status: mental status grossly normal Assessment & Plan Assessment & Plan (1) Rectal bleeding: Code(s): K62.5 - Hemorrhage of anus and rectum Category: Medical (2) GERD (gastroesophageal reflux disease): Code(s): K21.9 - Gastro-esophageal reflux disease without esophagitis Category: Medical Qualifiers: Esophagitis presence: without esophagitis Qualified Code(s): K21.9 - Gastro-esophageal reflux disease without esophagitis (3) Screen for colon cancer: Code(s): Z12.11 - Encounter for screening for malignant neoplasm of colon Plan Patient will continue avoid dietary triggers and late night snacking. Staying upright for minimum 3 hours after meals discussed with patient. What to expect before during and after procedure discussed with patient. Stressed the importance of good bowel prep and clear liquid diet day before procedure. I will see her after the procedure, sooner on as needed basis. She is agreeable to this plan and verbalizes understanding of instructions. She was given the opportunity to ask questions and all questions answered. Thank you for allowing me to participate in her care Medications: New bisacodyl (Dulcolax (bisacodyl)) take 4 tabs at noon the day before your colonoscopy 20 mg (4 x 5 mg) PO ONCE 1 day 4 tabs 0RF constipation Z12.11 - Encounter for screening for malignant neoplasm of colon polyethylene glycol 3350 (Miralax) As directed by gastroenterology department at [facility] 238 grams PO ONCE 238 grams 0RF Z12.11 - Encounter for screening for malignant neoplasm of colon Coding Level of Care Code New Pt Level 3 (20582) Diagnoses Rectal bleeding K62.5 Gastroesophageal reflux disease without esophagitis K21.9 Esophagitis presence: without esophagitis Screen for colon cancer Z12.11 Time Spent (min) 40 Comment 30 minutes spent with patient and additional 10 minutes spent reviewing her records
[2025-03-23 08:50] VITALS: BP 146/68; PULSE 64; O2SAT 99; BMI 33.1
--- OUTSIDE RECORDS SUMMARY | 2025-03-23 09:02 | XMS_ITS | Clinical Summary ---
Author Organization [facility] Facility Address [address] [address] Care Team Providers Care Management Assistant Name Role Phone Radha Eden MD Primary Care Provider [phone] Allergies Active Allergy Reactions Criticality Noted Date [...] patient's age to complete this topic [place] [address] [place] [id number] [facility] ([id number]) [facility] ([id number]) Care Teams Management Assistant Relationship Specialty Start Date End Date Radha Eden MD [facility] [address] [place] PCP - General 11/07/20
== END 2025-03-23 09:21 | disposition home or self-care (01) ==
LOC: HO.HGI 08:45
PROVIDERS: PCP Internal Medicine; Visit Provider Nurse Practitioner Family
DX: K62.5 Hemorrhage of anus and rectum (principal); K21.9 Gastro-esophageal reflux disease without esophagitis
CPT/HCPCS: 99203

== ENCOUNTER → 2025-03-23 08:44 | Outpatient (BNVA) | payer OTHER, SELFPAY | PROVIDERS: PCP Internal Medicine; Visit Provider Nurse Practitioner Family | DX: Z12.11 Encounter for screening for malignant neoplasm of colon (principal); K62.5 Hemorrhage of anus and rectum; K21.9 Gastro-esophageal reflux disease without esophagitis | CPT/HCPCS: 99202 ==

== ENCOUNTER 2025-04-20 08:50 | Outpatient (AMB) | payer OTHER, SELFPAY ==
[2025-04-20 08:55] VITALS: BP 142/70; PULSE 71; O2SAT 97; BMI 31.4
--- NOTE | 2025-04-20 08:55 | MHC.PC.OV ---
Vital Signs 04/20/25 08:55 Height 5 ft 1 in Weight 166 lb 2 oz BMI 31.4 BP 142/70 H Blood Pressure Location Lt brachial Position Sitting Pulse 71 Pulse Source Pulse Oximeter Pulse Oximetry (%) 97 Oxygen Delivery Method Room Air Intake Visit Reasons: Hypertension Ply Bander Required: No Accompanied by: Daughter Allergies Penicillins Allergy (Severe, Verified 04/20/25 08:55) DIFFICULTY BREATHING atorvastatin (From Lipitor) Allergy (Unknown, Verified 04/20/25 08:55) Unknown FRUITS Allergy (Intermediate, Uncoded 04/20/25 08:55) ITCHY THROAT, HOARSE VOICE SOMETIMES SOB bisoprolol Adverse Reaction (Intermediate, Uncoded 04/20/25 08:55) Bradycardia Tobacco use date assessed: 04/20/25 Fall risk assessment: No Falls in past year Last assessed Fall Risk: 04/20/25 Dental Screening Dental Screen Date: 04/20/25 Did you have a dental visit in the last 12 months?: Yes Did you have a dental problem in the last 6 months where you did not have access to dental care?: No Was dental information given to patient?: Patient has dentist [facility] Medical History Peripheral vascular disease Hypokalemia Age-related osteoporosis without current pathological fracture Uncontrolled hypertension COVID-19 vaccine series completed Mitral regurgitation Hypertension Hypercholesterolemia Ischemic colitis Bile salt-induced diarrhea GERD (gastroesophageal reflux disease) Vaginal vault prolapse Anxiety Cardiomyopathy Obesity (BMI 30-39.9) Asthma Coronary artery disease Surgical History H/O colonoscopy History of neck surgery History of thumb surgery History of tubal ligation History of cholecystectomy Family History Father Cancer Mother Cancer Social History Household Members: None Housing: Apartment Do you presently have visiting nurse or other home services: Yes Alcohol intake: never Patient Tobacco Use Status: Never used Tobacco Tobacco use type: Cigarette e-Cigarette/Vaping Use: Never Used Second Hand Smoke Exposure: No service: No Current occupational status: disabled Cognitive needs: No Hearing needs: No Vision needs: Yes Questionnaire PHQ-9 Over the last 2 weeks, how often have you been bothered by any of the following problems? 1. Little interest or pleasure in doing things: not at all 2. Feeling down, depressed, or hopeless: not at all 3. Trouble falling or staying asleep, or sleeping too much: not at all 4. Feeling tired or having little energy: not at all 5. Poor appetite or overeating: not at all 6. Feeling bad about yourself - or that you are a failure or have let yourself or your family down: not at all 7. Trouble concentrating on things, such as reading the newspaper or watching television: not at all 8. Moving or speaking so slowly that other people could have noticed. Or the opposite - being so fidgety or restless that you have been moving around a lot more than usual: not at all 9. Thoughts that you would be better off or of hurting yourself in some way: not at all Total score: 0 Source: Developed by Drs. Caleb Xiao, Donna Torres, Antony Tovar and colleagues, with an educational pao from [email or web address]. Thrive Questionnaire Date Thrive assessed: 04/20/25 I am a: Parent/Caregiver What is your living situation today?: I have a steady place to live Within the past 12 months, did the food you bought not last and you didn't have the money to get more?: Never true Within the past 12 months, did you worry whether your food would run out before you got money to buy more?: Never true Do you have trouble paying for medicines?: No Do you have trouble getting transportation to medical appointments?: No Do you have trouble paying your heating and electricity bill?: No Do you have trouble taking care of your child, family member or friend?: No Do you have trouble with day-to-day activities such as bathing, preparing meals, shopping, managing finances, etc.?: No Are you currently unemployed and looking for a job?: No Are you interested in more education?: No Please select the resources that you would like help with: None Currently or been in a relationship where the following occur: No concerns reported THRIVE Score: 0 AUDIT C Alcohol Use Questionnaire (AUDIT-C) 1. How often do you have a drink containing alcohol?: Never 3. How often do you have six or more drinks on one occasion?: Never Total Score: 0 JERALD-7 AMB Questionnaire JERALD-7 Date JERALD - 7 assessed: 04/20/25 Feeling nervous, anxious, or on edge: 0 = Not at all Not being able to stop or control worryin = Not at all Worrying too much about different things: 0 = Not at all Trouble relaxin = Not at all Being so restless that it is hard to sit still: 0 = Not at all Becoming easily annoyed or irritable: 0 = Not at all Feeling afraid as if something awful might happen: 0 = Not at all Total JERALD-7 score (0-4 normal; 5-9 mild; 10-14 moderate; 15-21 severe): 0 Source: Developed by Drs. Caleb Xiao, Donna Torres, Antony Tovar and colleagues, with an educational pao from [email or web address]. Physical exam (Primary Care) Vital Signs: Last Vital Signs Pulse 71 04/20/25 08:55 BP 142/70 H 04/20/25 08:55 Pulse Ox 97 04/20/25 08:55 Oxygen Delivery Method Room Air 04/20/25 08:55 BMI result Body Mass Index 31.4 Tobacco/Smoking Status: Tobacco use Status Tobacco use date assessed 04/20/25 04/20/25 08:56 Patient Tobacco Use Status Never used Tobacco 04/20/25 08:56 Tobacco use type Cigarette 04/20/25 08:56 e-Cigarette/Vaping Use Never Used 04/20/25 08:56 PHQ-9: PHQ-9 Score PHQ-9: Total score 0 04/20/25 09:38 Thrive Assessment: Date of Thrive Assessment Date Thrive assessed 04/20/25 04/20/25 08:56 Currently or been in a relationship where the following occur: No concerns reported Const General: alert; No acute distress Eyes Conjunctivae: conjunctivae normal Resp Auscultation: clear to auscultation bilaterally Cardio Rate: regular rate Rhythm: regular rhythm GI Inspection: Yes normal to inspection Extrem General: Yes normal to inspection and No edema Coding Level of Care Code Est Pt Level 4 (01937) Complex EM visit Add On G2211 Diagnoses Resistant hypertension I10 Coronary artery disease involving [place] coronary artery of [place] heart without angina pectoris I25.10 Associated angina: without angina Coronary Disease-Associated Artery/Lesion type: [place] artery [place] vs. transplanted heart: [place] heart Obesity (BMI 30-39.9) E66.9 Gastroesophageal reflux disease without esophagitis K21.9 Esophagitis presence: without esophagitis Mild intermittent asthma without complication J45.20 Asthma complication type: uncomplicated Asthma persistence: intermittent Asthma severity: mild Rectal bleeding K62.5 Hypercholesterolemia E78.00 Assessment & Plan Assessment & Plan (1) Resistant hypertension: Code(s): I10 - Essential (primary) hypertension Category: Medical Plan: Patient is being followed up by Nephrology and planned ambulatory blood pressure monitor (2) Coronary artery disease: Comment: NSTMI October 2011 stress cardiomyopathy son May 2014 Dr. Jyoce, April 2016 echo May 2019 EF 50-55% moderate aortic regurg, 2021The left ventricular systolic function is normal. The calculated ejection fraction is 67% by biplane method. - There is mild aortic valve regurgitation. Code(s): I25.10 - Atherosclerotic heart disease of [place] coronary artery without angina pectoris Category: Medical Qualifiers: Associated angina: without angina Coronary Disease-Associated Artery/Lesion type: [place] artery [place] vs. transplanted heart: [place] heart Qualified Code(s): I25.10 - Atherosclerotic heart disease of [place] coronary artery without angina pectoris Plan: Control the cholesterol, weight, blood pressure, s patient on aspirin 81 mg once a day (3) Obesity (BMI 30-39.9): Code(s): E66.9 - Obesity, unspecified Category: Medical Plan: Noted weight loss 9 lb (4) GERD (gastroesophageal reflux disease): Code(s): K21.9 - Gastro-esophageal reflux disease without esophagitis Category: Medical Qualifiers: Esophagitis presence: without esophagitis Qualified Code(s): K21.9 - Gastro-esophageal reflux disease without esophagitis Plan: Avoid the foods that causes that usually spicy foods, tomato products, juices, coffee, soda and foods that your sensitive to. After eating do not lie down, allow 3-4 hours before in lie down. And keep the head of bed above 30 degrees to avoid the acid from going up. (5) Asthma: Code(s): J45.909 - Unspecified asthma, uncomplicated Category: Medical Qualifiers: Asthma complication type: uncomplicated Asthma persistence: intermittent Asthma severity: mild Qualified Code(s): J45.20 - Mild intermittent asthma, uncomplicated Plan: Continue with inhaler as needed (6) Rectal bleeding: Code(s): K62.5 - Hemorrhage of anus and rectum Category: Medical Plan: Patient has a planned colonoscopy (7) Hypercholesterolemia: Code(s): E78.00 - Pure hypercholesterolemia, unspecified Category: Medical Plan: Had a long discussion with the patient regarding cholesterol and it seems like patient is not taking it. Refill done and advised the importance of taking the medication and will do a retest in 3 months Plan History of Present Illness The patient is a 80-year-old female presenting for follow-up of multiple chronic conditions including coronary artery disease, cardiomyopathy, GERD, asthma, hypercholesterolemia, and generalized anxiety disorder. She has experienced a 9-pound weight loss since her last visit in December 2024. Her history includes coronary artery disease and cardiomyopathy, which are being managed with ongoing treatment. The patient has a history of gastroesophageal reflux disease and rectal bleeding, for which she follows up with gastroenterology. A colonoscopy is scheduled to further evaluate these issues. She has been seen by nephrology for resistant hypertension and electrolyte imbalance. Testing for hyperaldosteronism was negative, and a 24-hour ambulatory blood pressure monitor is planned. Blood work in January showed anemia, which has been stable over the years. Her electrolytes are within normal limits, with low normal potassium, and renal function is normal. The patient is on rosuvastatin for hypercholesterolemia, with LDL cholesterol still elevated at 112 mg/dL. Vitamin D levels are low, and supplementation may be considered. Health Maintenance - Colonoscopy scheduled for further evaluation of rectal bleeding - Mammogram up to date as of September 2024 - Bone density normal in 2021 - Vitamin D supplementation may be considered due to deficiency Social History Review of Systems Physical Exam Results - Labs: Anemia noted in blood work from February 04, stable over years - Labs: Electrolytes within normal limits, low normal potassium, normal renal function - Labs: LDL cholesterol elevated at 112 mg/dL - Labs: Vitamin D levels low Plan The patient will continue management of her coronary artery disease and cardiomyopathy with current treatment regimens. A colonoscopy is scheduled to evaluate rectal bleeding and further assess her gastroesophageal reflux disease. For resistant hypertension, a 24-hour ambulatory blood pressure monitor will be utilized to better understand her blood pressure patterns. Her anemia will be monitored, given its stability over the years. The patient is advised to continue rosuvastatin for hypercholesterolemia, with a follow-up on cholesterol levels in three months. Vitamin D supplementation is recommended due to low levels. Patient was informed and verbally consented to the use of an ambient scribe for clinic note documentation during this visit. Discussion Notes Patient Instructions - Continue current medications for coronary artery disease and cardiomyopathy. - Attend scheduled colonoscopy for evaluation of rectal bleeding. - Use 24-hour ambulatory blood pressure monitor as instructed. - Continue rosuvastatin and follow up on cholesterol levels in three months. - Consider vitamin D supplementation. Orders: Orders Complete Blood Count Auto Diff 3 Months I25.10 - Atherosclerotic heart disease of [place] coronary artery without angina pectoris IRON PROFILE 3 Months I25.10 - Atherosclerotic heart disease of [place] coronary artery without angina pectoris Thyroid Stimulating Hormone 3 Months I25.10 - Atherosclerotic heart disease of [place] coronary artery without angina pectoris Comprehensive Met. Panel 3 Months I25.10 - Atherosclerotic heart disease of [place] coronary artery without angina pectoris Free T4 (Free Thyroxine) 3 Months I25.10 - Atherosclerotic heart disease of [place] coronary artery without angina pectoris Lipid Panel 3 Months E78.00 - Pure hypercholesterolemia, unspecified, I25.10 - Atherosclerotic heart disease of [place] coronary artery without angina pectoris Reticulocyte Count 3 Months I25.10 - Atherosclerotic heart disease of [place] coronary artery without angina pectoris Hemoglobin A1c 3 Months I25.10 - Atherosclerotic heart disease of [place] coronary artery without angina pectoris Vitamin B12 and Folate 3 Months I25.10 - Atherosclerotic heart disease of [place] coronary artery without angina pectoris Vitamin D 25-OH Total 3 Months I25.10 - Atherosclerotic heart disease of [place] coronary artery without angina pectoris UA CC w/rflx Micro + Cult 3 Months I25.10 - Atherosclerotic heart disease of [place] coronary artery without angina pectoris, R30.0 - Dysuria Medications: Refilled rosuvastatin 40 mg PO DAILY 90 tabs 2RF E78.00 - Pure hypercholesterolemia, unspecified
--- OUTSIDE RECORDS SUMMARY | 2025-04-20 09:14 | XMS_ITS | Clinical Summary ---
Author Organization [facility] Facility Address [address] [address] Care Team Providers Care Head Waiter Name Role Phone Radha Eden MD Primary Care Provider [phone] Allergies Active Allergy Reactions Criticality Noted Date [...] patient's age to complete this topic [place] [place] [id number] [facility] ([id number]) [facility] ([id number]) Care Teams Head Waiter Relationship Specialty Start Date End Date Radha Eden MD [facility] [address] PCP - General 11/07/20
== END 2025-04-20 10:13 | disposition home or self-care (01) ==
LOC: HO.HMCH 08:50
PROVIDERS: PCP Internal Medicine; Visit Provider Internal Medicine
DX: I10 Essential (primary) hypertension (principal); I25.10 Atherosclerotic heart disease of native coronary artery without angina pectoris; E66.9 Obesity, unspecified; Z68.31 Body mass index [BMI] 31.0-31.9, adult; K21.9 Gastro-esophageal reflux disease without esophagitis; J45.20 Mild intermittent asthma, uncomplicated; K62.5 Hemorrhage of anus and rectum; E78.00 Pure hypercholesterolemia, unspecified

== ENCOUNTER → 2025-04-20 08:50 | Outpatient (BNVA) | payer OTHER, SELFPAY | PROVIDERS: PCP Internal Medicine; Visit Provider Internal Medicine | DX: I25.10 Atherosclerotic heart disease of native coronary artery without angina pectoris (principal); E66.9 Obesity, unspecified; K21.9 Gastro-esophageal reflux disease without esophagitis; J45.20 Mild intermittent asthma, uncomplicated; K62.5 Hemorrhage of anus and rectum; E78.00 Pure hypercholesterolemia, unspecified; I42.9 Cardiomyopathy, unspecified; F41.1 Generalized anxiety disorder; I1A.0 Resistant hypertension; E55.9 Vitamin D deficiency, unspecified; Z68.31 Body mass index [BMI] 31.0-31.9, adult | CPT/HCPCS: 96127; 99212 ==

== ENCOUNTER 2025-04-26 17:24 | Emergency (ER) | payer OTHER, SELFPAY ==
--- NOTE | ~2025-04-26 | XR_ITS ---
CLINICAL HISTORY: fall 4 view right knee Comparison: None provided Findings: Bones intact. No dislocations. Moderate degenerative disease with joint space narrowing and tricompartmental spurring. No joint effusion. No radiopaque foreign body. IMPRESSION: 1. No acute findings. Moderate DJD. This document has been electronically signed by: Shonda Dumont MD on 04/26/2025 20:37:16
--- NOTE | ~2025-04-26 | XR_ITS ---
CLINICAL HISTORY: fall 4 view left knee Comparison: None provided Findings: No fractures or dislocations. Moderate to severe DJD with joint space narrowing and tricompartmental spurring. No joint effusion. No radiopaque foreign body. IMPRESSION: 1. No acute findings. Moderate to severe DJD. This document has been electronically signed by: Shonda Dumont MD on 04/26/2025 20:38:29
--- NOTE | ~2025-04-26 | XR_ITS ---
CLINICAL HISTORY: fall 4 view, chest and right ribs Comparison: None provided Findings: No fractures or dislocations. The lungs are unremarkable. IMPRESSION: No acute rib fractures. This document has been electronically signed by: Shonda Dumont MD on 04/26/2025 20:38:13
--- NOTE | ~2025-04-26 | XR_ITS ---
CLINICAL HISTORY: fall 4 view right wrist Comparison: None provided Findings: Bones intact. No dislocations. [id number] degenerative disease of the joint space narrowing and sclerotic changes most notably of the carpometacarpal joints. No radiopaque foreign body. IMPRESSION: 1. No acute findings. [id number] DJD. This document has been electronically signed by: Shonda Dumont MD on 04/26/2025 20:33:33
[2025-04-26 17:37] VITALS: BP 162/98; BP 186/76; PULSE 77; PULSE 85; RESP 19; TEMP 37; O2SAT 94; O2SAT 97; BMI 29.3
--- NOTE | 2025-04-26 17:44 | ECG_ITS ---
Test Reason : CHEST PAIN FALL Blood Pressure : */* mmHG Vent. Rate : 72 BPM Atrial Rate : 72 BPM P-R Int : 146 ms QRS Dur : 92 ms QT Int : 434 ms P-R-T Axes : 12 -39 33 degrees QTcB Int : 475 ms Normal sinus rhythm Left axis deviation Possible Lateral infarct (cited on or before 10-Sep-2024) Abnormal ECG When compared with ECG of 10-Sep-2024 22:48, Premature ventricular complexes are no longer Present Questionable change in initial forces of Lateral leads Referred By: Generic ED Physician Electronically Signed By: MONIKA FAUST MD
[2025-04-26 18:13] LABS: Basophils Percent Auto 0.2 % (0-2); Eosinophils Percent Auto 0.9 % (0-4); Hemoglobin 11.4 g/dl (12.0-16.0); Imm Gran Abs Auto 0.03 X10*3/uL (0.00-0.03); Imm Gran Pct Auto 0.7 % (0.0-0.4); Lymphocytes Absolute Auto 1.5 X10*3/uL (1.2-4.9); Lymphocytes Percent Auto 33.9 % (20-40); MANUAL DIFF FLAG NO; Mean Corpuscular HGB Conc 34.5 g/dl (31.0-35.0); Mean Corpuscular Hemoglobin 30.5 pg (27.0-33.0); Mean Corpuscular Volume 88.2 fL (80.0-98.0); Mean Platelet Volume 9.6 fL (9.4-12.3); Monocytes Absolute Auto 0.3 X10*3/uL (0.1-1.2); Monocytes Percent Auto 6.2 % (2-11); Neutrophils Absolute Auto 2.6 x10*3/uL (2.0-8.3); Neutrophils Percent Auto 58.1 % (45-73); Platelet Count 255 X10*3/uL (160-400); Red Blood Count 3.74 X10*6/uL (4.20-5.50); Red Cell Distribution Width 12.8 % (11.0-16.0); White Blood Count 4.5 X10*3/uL (4.8-10.8)
[2025-04-26 18:30] LABS: Alanine Aminotransferase 10 U/L (0-31); Albumin Level 3.9 g/dL (3.5-5.0); Alkaline Phosphatase 80 U/L (39-117); Anion Gap 13 (12-20); Aspartate Amino Transferase 32 U/L (5-31); Bilirubin Total 0.4 mg/dL (0.0-1.0); Blood Urea Nitrogen 10 mg/dL (9-16); Calcium 8.8 mg/dL (8.4-10.2); Carbon Dioxide 27 mmol/L (22-29); Chloride 109 mmol/L (96-108); Creatinine Clr Calc Pharmacy 62.6; Estimated Glomerular Filt Rate > 60; Glucose Random 106 mg/dL (60-115); Sodium 146 mmol/L (135-145); Total Protein 6.8 g/dL (6.5-8.0)
--- OUTSIDE RECORDS SUMMARY | 2025-04-26 18:31 | XMS_ITS | Clinical Summary ---
Author Organization [facility] Facility Address [address] [address] Care Team Providers Care Epoxy Fabrication Supervisor Name Role Phone Radha Eden MD Primary Care Provider [phone] Allergies Active Allergy Reactions Criticality Noted Date [...] patient's age to complete this topic [place] [address] [address] [id number] [facility] ([id number]) [facility] ([id number]) Care Teams Epoxy Fabrication Supervisor Relationship Specialty Start Date End Date Radha Eden MD [facility] [address] [place] MD PCP - General 11/07/20
--- OUTSIDE RECORDS SUMMARY | 2025-04-26 18:31 | XMS_ITS | Clinical Summary ---
Author Organization [facility] Address [address] [facility] [address] [place] [address] Care Team Providers Care Valve Inspector Name Role Phone Unavailable Primary Care Provider Unavailabl e Immunizations Immunization Administration Dates Next Due Moderna Covid-19 Vaccine 6+ Bivalent 11/22/2022 Social History Tobacco Use Types Packs/Day Years Used Date Smoking Tobacco: Never Assessed Comments Unknown Sex and Gender Information Value Date Recorded Sex Assigned at Female 08/27/2022 10:14 AM EDT Legal Sex Female 10:14 AM EDT Gender Identity Choose not to disclose 10:14 AM EDT Sexual Orientation Choose not [...] 10/23/2021, 03/09/2021, Additional history exists Influenza Vaccine (Season Ended) 2025 09/03/2022, 08/01/2021, 10/26/2020, Additional history exists DTaP/Tdap/Td Vaccines [...] patient's age to complete this topic Meningococcal B Vaccine Aged Out No l onger eligible based on patient's age to complete [...]
[2025-04-26 18:38] LABS: Troponin-I High Sensitivity 8.9 ng/L (<3.5-17.0)
--- NOTE | 2025-04-26 19:21 | ED.FALL ---
HPI - Fall General Chief Complaint: Fall Stated Complaint: fall, head strike , R wrist/ breast/ both knees Time Seen by Provider: 04/26/25 19:20 Source: patient Mode of arrival: ambulatory Limitations: no limitations History of Present Illness ED Provider: HPI Narrative: Patient apparently was walking outside tripped and fell and hitting her right side to the curb no head injury no loss of consciousness patient is still able to ambulate pain is in bilateral knees right side of the rib patient not on any anticoagulation Related Data Home Medications ?Medication ?Instructions ?Recorded ?Confirmed Hand held step stool 06/16/24 02/16/25 Previous Rx's ?Medication ?Instructions ?Recorded compr.stocking,thigh,reg,large #2 ea 11/22/21 AIR PURIFIER #1 ea 01/21/23 lidocaine 4 % topical patch 1 patch topical DAILY PRN pain #30 09/24/23 (Aspercreme (lidocaine)) ea albuterol sulfate 90 mcg/actuation 2 puff inhalation Q6H PRN 10/14/23 aerosol inhaler (Ventolin HFA) shortness of breath or wheezing #8.5 grams cholecalciferol (vitamin D3) 50 50 mcg PO DAILY 90 days #90 caps 01/20/24 mcg (2,000 unit) capsule aspirin 81 mg tablet,delayed 81 mg PO DAILY #90 tabs 04/08/24 release (Adult Low Dose Aspirin) step stool with handle #1 ea 06/16/24 potassium chloride 10 mEq 10 meq PO DAILY #90 tabs 06/30/24 tablet,extended release(part/cryst) (Klor-Con M) sertraline 25 mg tablet 25 mg PO DAILY #90 tabs 06/30/24 amlodipine 10 mg-benazepril 40 mg 1 cap PO DAILY 90 days #90 caps 09/29/24 capsule spironolactone 50 mg tablet 50 mg PO BID #180 tabs 12/23/24 azelastine 137 mcg (0.1 %) nasal 137 mcg (0.137 mL) intranasal BID 01/12/25 spray #30 mL bisacodyl 5 mg tablet,delayed 20 mg (4 x 5 mg) PO ONCE 03/23/25 release (Dulcolax (bisacodyl)) constipation 1 day #4 tabs polyethylene glycol 3350 17 238 g PO ONCE #238 grams 03/23/25 gram/dose oral powder (Miralax) omeprazole 20 mg capsule,delayed 20 mg PO DAILY@0630 #90 caps 03/31/25 release rosuvastatin 40 mg tablet 40 mg PO DAILY #90 tabs 04/20/25 Allergies Allergy/AdvReac Type Severity Reaction Status Date / Time Penicillins Allergy Severe DIFFICULTY Verified 04/20/25 08:55 BREATHING atorvastatin (From Lipitor) Allergy Unknown Unknown Verified 04/20/25 08:55 FRUITS Allergy Intermediate ITCHY Uncoded 04/20/25 08:55 THROAT, HOARSE VOICE SOMETIMES SOB bisoprolol AdvReac Intermediate Bradycardia Uncoded 04/20/25 08:55 Review of Systems Review of Systems: Yes all other systems are reviewed and are negative [facility] Past Medical History Medical History Peripheral vascular disease Hypokalemia Age-related osteoporosis without current pathological fracture Uncontrolled hypertension COVID-19 vaccine series completed Mitral regurgitation Hypertension Hypercholesterolemia Ischemic colitis Bile salt-induced diarrhea GERD (gastroesophageal reflux disease) Vaginal vault prolapse Anxiety Cardiomyopathy Obesity (BMI 30-39.9) Asthma Coronary artery disease Surgical History H/O colonoscopy History of neck surgery History of thumb surgery History of tubal ligation History of cholecystectomy Family History Family History Father Cancer Mother Cancer Social History Social History Household Members: None Housing: Apartment Do you presently have visiting nurse or other home services: Yes Alcohol intake: never Patient Tobacco Use Status: Never used Tobacco Tobacco use type: Cigarette e-Cigarette/Vaping Use: Never Used Second Hand Smoke Exposure: No service: No Current occupational status: disabled Cognitive needs: No Hearing needs: No Vision needs: Yes Physical Exam Vital Signs: Vital Signs: Last Vital Signs Temp 98.6 F 04/26/25 21:27 Pulse 78 04/26/25 21:27 Resp 20 04/26/25 21:27 BP 182/81 H 04/26/25 21:27 Pulse Ox 97 04/26/25 21:27 O2 Del Method Room Air 04/26/25 21:27 BMI result Body Mass Index 29.3 Appearance: Alert. Oriented X3. No acute distress. Eyes: PERRLA, No Nystagmus ENT: Pharynx normal. Oral Mucosa moist atraumatic normocephalic Neck: Normal inspection. Neck supple. CVS: Normal heart rate and rhythm. Pulses normal. Respiratory: No respiratory distress. Equal air entry bilateral, no wheezing/rales/rhonchi mild tenderness right diffuse ribs Abdomen: Soft and nontender. Bowel sounds are present, no mass palpable, no CVA tenderness Skin: Skin warm and dry. Normal skin color. Normal skin turgor. Extremities: Diffuse tenderness bilateral knee no knee effusion patient is able to ambulate No lower extremity edema. No calf tenderness Neuro: Oriented X 3. No motor deficit. No sensory deficit.No cerebellar signs , cranial nerves II-XII intact Medications Administered Discontinued Medications Generic Name Dose Route Start Last Admin Trade Name Freq PRN Reason Stop Dose Admin Ibuprofen 600 mg 04/26/25 19:37 04/26/25 20:11 Ibuprofen 600 Mg Tablet PO 04/26/25 19:38 600 mg ONCE ONE Administration Medical Decision Making Medical Decision Making [facility] Narrative: Patient is status post mechanical fall x-rays negative for rib fracture or new fracture patient ambulatory discharge patient home advised to be more cautious and take Tylenol/Motrin for pain Lab Data [facility] Lab Attestation statement: I reviewed the patient's lab results. 04/26/25 18:08 04/26/25 18:08 Labs: Lab Results 04/26/25 Range/Units 18:08 WBC 4.5 L (4.8-10.8) X10*3/uL RBC 3.74 L (4.20-5.50) X10*6/uL Hgb 11.4 L (12.0-16.0) g/dl Hct 33.0 L (37.0-47.0) % MCV 88.2 (80.0-98.0) fL MCH 30.5 (27.0-33.0) pg MCHC 34.5 (31.0-35.0) g/dl RDW 12.8 (11.0-16.0) % Plt Count 255 (160-400) X10*3/uL MPV 9.6 (9.4-12.3) fL Immature Gran % (Auto) 0.7 H (0.0-0.4) % Neut % (Auto) 58.1 (45-73) % Lymph % (Auto) 33.9 (20-40) % Morrow % (Auto) 6.2 (2-11) % Eos % (Auto) 0.9 (0-4) % Baso % (Auto) 0.2 (0-2) % Lymph # (Auto) 1.5 (1.2-4.9) X10*3/uL Morrow # (Auto) 0.3 (0.1-1.2) X10*3/uL Eos # (Auto) 0.0 (0.0-0.4) X10*3/uL Baso # (Auto) 0.0 (0.0-0.2) X10*3/uL Abs Immat Gran (auto) 0.03 (0.00-0.03) X10*3/uL Absolute Neuts (auto) 2.6 (2.0-8.3) x10*3/uL Absolute Nucleated RBC 0.000 (0.0-0.012) X10*3/uL Nucleated RBC % (auto) 0.0 (0.0-0.2) /100WBC Sodium 146 H (135-145) mmol/L Potassium 3.0 L (3.3-5.1) mmol/L Chloride 109 H (96-108) mmol/L Carbon Dioxide 27 (22-29) mmol/L Anion Gap 13 (12-20) BUN 10 (9-16) mg/dL Creatinine 0.69 (0.5-1.4) mg/dL Estim Creat Clear Calc 62.6 Estimated GFR > 60 Random Glucose 106 (60-115) mg/dL Calcium 8.8 (8.4-10.2) mg/dL Total Bilirubin 0.4 (0.0-1.0) mg/dL AST 32 H (5-31) U/L ALT 10 (0-31) U/L Alkaline Phosphatase 80 (39-117) U/L Troponin I High Sens 8.9 (<3.5-17.0) ng/L Total Protein 6.8 (6.5-8.0) g/dL Albumin 3.9 (3.5-5.0) g/dL Radiology Impression Discussion of test interpretation with radiology: I have reviewed the radiologist's reading. Discharge Plan Discharge Clinical Impression: Fall Patient Disposition: Home, Self-Care Instructions: Fall Prevention for Older Adults (ED) Additional Instructions: Use Prashant wrap for support Tylenol/Motrin for pain Prescriptions: No Action albuterol sulfate [Ventolin HFA] 90 mcg/actuation HFA aerosol inhaler 2 puff inhalation Q6H PRN (Reason: shortness of breath or wheezing) Qty: 8.5 3RF (DME) Hand held step stool 0 .Route .MEDSUPPLY (DME) step stool with handle See Rx Instructions .Route .MEDSUPPLY Qty: 1 0RF Rx Instructions: As directed potassium chloride [Klor-Con M10] 10 mEq tablet,ER particles/crystals 10 meq PO DAILY Qty: 90 2RF sertraline 25 mg tablet 25 mg PO DAILY Qty: 90 2RF spironolactone 50 mg tablet 50 mg PO BID Qty: 180 1RF omeprazole 20 mg capsule,delayed release(DR/EC) 20 mg PO DAILY@0630 Qty: 90 2RF lidocaine [Aspercreme (lidocaine)] 4 % adhesive patch,medicated 1 patch topical DAILY PRN (Reason: pain) Qty: 30 0RF aspirin [Adult Low Dose Aspirin] 81 mg tablet,delayed release (DR/EC) 81 mg PO DAILY Qty: 90 3RF (DME) compr.stocking,thigh,reg,large Misc See Rx Instructions .Route Qty: 2 0RF Rx Instructions: As directed 20-30 mm HG (DME) AIR PURIFIER See Rx Instructions .Route .MEDSUPPLY Qty: 1 0RF Rx Instructions: As directed cholecalciferol (vitamin D3) 50 mcg (2,000 unit) capsule 50 mcg PO DAILY 90 Days Qty: 90 3RF amlodipine-benazepril 10-40 mg capsule 1 cap PO DAILY 90 Days Qty: 90 2RF azelastine 137 mcg (0.1 %) spray,non-aerosol 137 mcg intranasal BID Qty: 30 0RF Rx Instructions: administer into each nostril rosuvastatin 40 mg tablet 40 mg PO DAILY Qty: 90 2RF bisacodyl [Dulcolax (bisacodyl)] 5 mg tablet,delayed release (DR/EC) 20 mg PO ONCE 1 Days Qty: 4 0RF Rx Instructions: take 4 tabs at noon the day before your colonoscopy polyethylene glycol 3350 [Miralax] 17 gram/dose powder 238 g PO ONCE Qty: 238 0RF Rx Instructions: As directed by gastroenterology department at [facility] Interventions: ED Discharge Assessment Last Done: 04/26/25 21:27 Discharge Date/Time: 04/26/25 21:33 Print Language: [place] Citizen
--- NOTE | 2025-04-26 19:29 | PC.NURSE ---
Took over care at 19:00, assist pt the the bathroom, and back to stretcher.
[2025-04-26] MEDS: Ibuprofen 600 MG TABLET PO (20:11)
--- NOTE | 2025-04-26 20:12 | PC.NURSE ---
pt medicated per mar,
[2025-04-26 20:30] VITALS: BP 167/74; PULSE 74; RESP 18; TEMP 36.9; O2SAT 97
[2025-04-26 21:18] VITALS: BP 174/74; PULSE 78; RESP 20; TEMP 37; O2SAT 97
[2025-04-26 21:27] VITALS: BP 182/81; PULSE 78; RESP 20; TEMP 37; O2SAT 97
== END 2025-04-26 21:33 | disposition home or self-care (01) ==
PROVIDERS: Emergency Provider Internal Medicine; PCP Internal Medicine
DX: Z04.3 Encounter for examination and observation following other accident (principal); R07.81 Pleurodynia; M79.672 Pain in left foot; M79.671 Pain in right foot
CPT/HCPCS: 36415; 71101; 73110; 73562; 80053; 84484; 85025; 93005; 99283; 99285

== ENCOUNTER → 2025-04-26 17:44 | Outpatient (BNV) | payer OTHER, SELFPAY | PROVIDERS: Emergency Provider Internal Medicine; PCP Internal Medicine; Visit Provider Internal Medicine Cardiovascular Disease | DX: R94.31 Abnormal electrocardiogram [ECG] [EKG] (principal); R07.9 Chest pain, unspecified; W19.XXXA Unspecified fall, initial encounter | CPT/HCPCS: 93010 ==

== ENCOUNTER → 2025-04-26 19:34 | Outpatient (BNV) | payer OTHER, SELFPAY | PROVIDERS: Emergency Provider Internal Medicine; PCP Internal Medicine; Visit Provider Student in an Organized Health Care Education/Training Program | DX: M19.031 Primary osteoarthritis, right wrist (principal); M17.0 Bilateral primary osteoarthritis of knee; R07.9 Chest pain, unspecified; W19.XXXA Unspecified fall, initial encounter | CPT/HCPCS: 71101; 73110; 73562 ==

== ENCOUNTER 2025-04-28 10:02 | Outpatient (AMB) | payer OTHER, SELFPAY ==
--- NOTE | 2025-04-28 10:19 | MHC.OFFVIS ---
Vital Signs 04/28/25 10:21 Height 5 ft 2 in Weight 166 lb 10.711 oz BMI 30.5 BP 140/72 H Blood Pressure Location Lt brachial Position Sitting Pulse 68 Pulse Source Monitor Intake Visit Reasons: f/u bradycardia Intake Note: f/up-wilber/ADH/ [employer] Field Technician Required: No Accompanied by: Daughter Allergies Penicillins Allergy (Severe, Verified 04/20/25 08:55) DIFFICULTY BREATHING atorvastatin (From Lipitor) Allergy (Unknown, Verified 04/20/25 08:55) Unknown FRUITS Allergy (Intermediate, Uncoded 04/20/25 08:55) ITCHY THROAT, HOARSE VOICE SOMETIMES SOB bisoprolol Adverse Reaction (Intermediate, Uncoded 04/20/25 08:55) Bradycardia Medication List - Last Reconciled 04/28/25 by Evan Dejesus MD [AIR PURIFIER As directed] albuterol sulfate 90 mcg/actuation (Ventolin HFA) 2 puffs inhalation Q6H PRN amlodipine-benazepril 10-40 mg 1 cap PO DAILY 90 days aspirin (Adult Low Dose Aspirin) 81 mg PO DAILY azelastine 137 mcg (0.137 mL) intranasal BID bisacodyl (Dulcolax (bisacodyl)) 20 mg (4 x 5 mg) PO ONCE 1 day cholecalciferol (vitamin D3) 50 mcg PO DAILY 90 days compr.stocking,thigh,reg,large As directed 20-30 mm HG [Hand held step stool ] lidocaine 4% (Aspercreme (lidocaine)) 1 patch topical DAILY PRN omeprazole 20 mg PO DAILY@0630 polyethylene glycol 3350 (Miralax) 238 grams PO ONCE potassium chloride ER (Klor-Con M) 10 mEq PO DAILY rosuvastatin 40 mg PO DAILY sertraline 25 mg PO DAILY spironolactone 50 mg PO BID [step stool with handle As directed] HPI Comments Details: [age] year female who is here for follow-up she has she was seen with GI bleed in the hospital and was also noticed to have bradycardia. She was on bisoprolol which was stopped. Subsequently data bradycardia improve. On follow-up she is denying any bleeding, dizziness or syncope. She has no chest pain or shortness of breath. Clinically stable and denying any symptoms at this point. ON LICENSE OF [facility] Medical History Peripheral vascular disease Hypokalemia Age-related osteoporosis without current pathological fracture Uncontrolled hypertension COVID-19 vaccine series completed Mitral regurgitation Hypertension Hypercholesterolemia Ischemic colitis Bile salt-induced diarrhea GERD (gastroesophageal reflux disease) Vaginal vault prolapse Anxiety Cardiomyopathy Obesity (BMI 30-39.9) Asthma Coronary artery disease Surgical History H/O colonoscopy History of neck surgery History of thumb surgery History of tubal ligation History of cholecystectomy Family History Father Cancer Mother Cancer Social History Household Members: None Housing: Apartment Do you presently have visiting nurse or other home services: Yes Alcohol intake: never Patient Tobacco Use Status: Never used Tobacco Tobacco use type: Cigarette e-Cigarette/Vaping Use: Never Used Second Hand Smoke Exposure: No service: No Current occupational status: disabled Cognitive needs: No Hearing needs: No Vision needs: Yes Review of Systems Const Denies chills, Denies fatigue, Denies fever(s), Denies frequent falls, Denies weakness, Denies weight gain and Denies weight loss ENT Denies dizziness Card Denies chest pain, Denies leg edema, Denies lightheadedness, Denies palpitations, Denies dyspnea and Denies dyspnea on exertion Resp Denies cough, Denies dyspnea and Denies dyspnea on exertion GI Denies hematochezia Musc Denies abnormal gait, Denies muscle weakness, Denies numbness, Denies radiating pain into limb and Denies tingling Neuro Denies abnormal gait, Denies dizziness, Denies frequent falls, Denies numbness, Denies tingling and Denies weakness Endo Denies fatigue and Denies palpitations Physical Exam Vital Signs: Last Vital Signs Pulse 68 04/28/25 10:21 BP 140/72 H 04/28/25 10:21 BMI result Body Mass Index 30.5 GENERAL APPEARANCE: in no acute distress, pleasant. NECK: no carotid bruit, no jugular venous distention. SKIN: no suspicious lesions, warm and dry. HEART: no murmurs, regular rate and rhythm. LUNGS: clear to auscultation bilaterally. ABDOMEN: soft, nontender. EXTREMITIES: no edema. PERIPHERAL PULSES: equal. NEUROLOGIC: No gross deficits, AAO X 3 Office Procedures EKG Details: NSR 68/min, low voltage, anterolateral infarct, QTc 444 msec. 44450-[id number], Complete Assessment & Plan Assessment & Plan (1) Resistant hypertension: Code(s): I10 - Essential (primary) hypertension Category: Medical (2) Bradycardia: Code(s): R00.1 - Bradycardia, unspecified Category: Medical Plan [age] year female who is here for follow-up. She was seen in the hospital when she presented with GI bleeding I am noticed to have bradycardia. She was on bisoprolol this was discontinued. Since then she has improvement in heart rate. She is denying any dizziness or syncope. No chest discomfort shortness of breath. Clinically stable. She will follow up with us in 1 year. Thank you for allowing me to participate in the care of your patient. Please feel free to contact me if you have any questions. Coding Level of Care Code Est Pt Level 3 (55138) Diagnoses Resistant hypertension I10 Bradycardia R00.1 CPT Codes EKG - CPT: 39694-[id number], Complete ([id number])
[2025-04-28 10:21] VITALS: BP 140/72; PULSE 68; BMI 30.5
--- OUTSIDE RECORDS SUMMARY | 2025-04-28 10:31 | XMS_ITS | Clinical Summary ---
Author Organization [employer] Address [address] [place] [address] Care Team Providers Care Lye Machine Operator Name Role Phone Unavailable Primary Care Provider [...]
--- OUTSIDE RECORDS SUMMARY | 2025-04-28 10:31 | XMS_ITS | Clinical Summary ---
Author Organization [facility] Address [address] [address] Care Team Providers Care Surgical Clinical Reviewer Name Role Phone Radha Eden MD Primary Care Provider [phone] Allergies Active Allergy Reactions Criticality Noted Date [...] patient's age to complete this topic Insurance [place] [id number] [facility] ([id number]) [facility] ([id number]) Care Teams Surgical Clinical Reviewer Relationship Specialty Start Date End Date Radha Eden MD [facility] [address] [place] PCP - General 11/07/20
== END 2025-04-28 10:49 | disposition home or self-care (01) ==
LOC: HO.HCS 10:04
PROVIDERS: PCP Internal Medicine; Visit Provider Internal Medicine Cardiovascular Disease
DX: I10 Essential (primary) hypertension (principal); R00.1 Bradycardia, unspecified
CPT/HCPCS: 93010; 99213

== ENCOUNTER → 2025-04-28 10:02 | Outpatient (BNVA) | payer OTHER, SELFPAY | PROVIDERS: PCP Internal Medicine; Visit Provider Internal Medicine Cardiovascular Disease | DX: I10 Essential (primary) hypertension (principal); R00.1 Bradycardia, unspecified | CPT/HCPCS: 93005; 99212 ==

== ENCOUNTER 2025-07-01 08:09 | Day surgery (SDC) | payer OTHER, SELFPAY ==
--- OUTSIDE RECORDS SUMMARY | 2025-06-10 12:51 | XMS_ITS | Clinical Summary ---
Author Organization [facility] Facility Address [address] [address] Care Team Providers Care Lamination Spinner Name Role Phone Radha Eden MD Primary Care Provider [phone] Allergies Active Allergy Reactions Criticality Noted Date [...] 2 - PCV) 07/01/2016 07/01/2015 Influenza Vaccine (#1) 2025 08/10/2015 Pneumococcal Vaccine: Peds ( 0 to 5 Years) and At-Risk Patients (6 to 49 Years) Discontinued 07/01/2015 Hepatitis B Vaccine Aged Out No longe r eligible based on patient's age to complete this topic Insurance [place] [id number] [facility] ([id number]) [facility] ([id number]) Care Teams Lamination Spinner Relationship Specialty Start Date End Date Radha Eden MD [facility] [address] [place] PCP - General 11/07/20
--- OUTSIDE RECORDS SUMMARY | 2025-06-10 12:51 | XMS_ITS | Clinical Summary ---
Author Organization [employer] Address [address] [place] [address] Care Team Providers Care Administrative Program Specialist Name Role Phone Unavailable Primary Care [...] 03/09/2021, Additional history exists Influenza Vaccine (#1) 2025 2, 08/01/2021, 10/26/2020, Additional history exists DTaP/Tdap/Td [...]
[2025-06-29 12:18] VITALS: BMI 30.5
--- NOTE | 2025-07-01 08:37 | MHC.SHP ---
Pre-Procedural Eval Section A - 24 Hr Update-Section A only Date of Service: 07/01/25 Section B - Complete if H&P > 30 days Chief Complaint: screening Details of Present Illness: Peripheral vascular disease Hypokalemia Age-related osteoporosis without current pathological fracture Uncontrolled hypertension COVID-19 vaccine series completed Mitral regurgitation Hypertension Hypercholesterolemia Ischemic colitis Bile salt-induced diarrhea GERD (gastroesophageal reflux disease) Vaginal vault prolapse Anxiety Cardiomyopathy Obesity (BMI 30-39.9) Asthma Coronary artery disease Surgical History H/O colonoscopy History of neck surgery History of thumb surgery History of tubal ligation History of cholecystectomy Allergies: Allergies Allergy/AdvReac Type Severity Reaction Status Date / Time Penicillins Allergy Severe DIFFICULTY Verified 04/20/25 08:55 BREATHING atorvastatin (From Lipitor) Allergy Unknown Unknown Verified 04/20/25 08:55 bisoprolol AdvReac Intermediate bradycardia Verified 06/29/25 12:11 FRUITS Allergy Intermediate ITCHY Uncoded 06/29/25 12:11 THROAT/HOARSE VOICE/SOMETIMES SOB Review of Systems Review of Systems Comment: Ten point ROS negative Exam Exam Comment: Gen appear: No acute distress HEENT: no icterus Chest: No overt resp distress Abd: soft, nontender, nondistended Psych: Stable affect, answering questions appropriately Neuro: A/Ox3 noted to move all extremities spontaneously Ext: no peripheral edema Plan Diagnosis/Plan: Unchanged I have reviewed the history and physical and performed a pertinent physical examination on my patient. No changes have occurred unless specified. Time Spent With Patient Time: Total time managing care of this patient today ____ minutes.
[2025-07-01 09:10] VITALS: BP 127/52; PULSE 68; RESP 12; TEMP 36.3; O2SAT 100; BMI 29.8
[2025-07-01] MEDS: Lactated Ringers 1,000 ML 100 ML IVCONT (09:13)
--- NOTE | 2025-07-01 09:38 | P.CONAN_ITS ---
Documented by User: Letty Hong NP 06/30/25 09:35 HPI - Anesthesia Eval Consult details Narrative: 80 yr old female for colonoscopy Resistant hypertension with hypokalemia: Follows with renal, last K+ was 3.0 04/26/25, will repeat today; she is on K+ supplementation CAD/cardiomyopathy: NSTMI October 2011 stress cardiomyopathy son May 2014; follows with [facility] [place] [facility], [facility] Active Problems Active Problems: All Active Problems (Updated 06/29/25 @ 12:09 by Balbina Burr RN) Rectal bleeding (Acute) Bradycardia (Acute) Hypertensive emergency (Acute) Hearing loss (Acute) Adult general medical exam (Acute) Left shoulder pain (Acute) Resistant hypertension (Acute) Varicose veins of right lower extremity with inflammation (Acute) Peripheral vascular disease (Acute) Generalized anxiety disorder (Acute) Cataract (Acute) Preoperative clearance (Acute) Breast cancer screening by mammogram (Acute) Vitamin D deficiency (Acute) Osteoarthritis of knee (Acute) Anserine bursitis (Acute) Knee pain, right (Acute) Hypokalemia (Acute) Hypercholesterolemia (Acute) GERD (gastroesophageal reflux disease) (Acute) Cardiomyopathy (Acute) Obesity (BMI 30-39.9) (Acute) Asthma (Acute) Coronary artery disease (Acute) Past Medical History Medical History Peripheral vascular disease Hypokalemia Age-related osteoporosis without current pathological fracture Mitral regurgitation Hypertension Hypercholesterolemia Ischemic colitis Bile salt-induced diarrhea GERD (gastroesophageal reflux disease) Anxiety Cardiomyopathy Obesity (BMI 30-39.9) Asthma Coronary artery disease Family History Family History Father Cancer Mother Cancer Family history of problems with anesthesia: No Surgical History Surgical History (Updated 06/29/25 @ 12:08 by Balbina Burr RN) Hx of bilateral cataract extraction H/O colonoscopy History of neck surgery History of thumb surgery History of tubal ligation History of cholecystectomy History of Problems with Anesthesia: Yes Social History Social History Household Members: None Housing: Apartment Are you a primary child care aide to a significant other at home: No Do you presently have visiting nurse or other home services: No Alcohol intake: never Patient Tobacco Use Status: Never used Tobacco Tobacco use type: Cigarette e-Cigarette/Vaping Use: Never Used Second Hand Smoke Exposure: No Use of substances other than those prescribed or required for medical reasons: No Have you been hit, kicked, punched, or otherwise hurt by someone within the past year? If so, by whom?: No Are you DNR?: No Advance Directives: No Advance Directives Information Provided: Yes Patient : No Poor oral hygiene: No service: No Current occupational status: disabled Cognitive needs: No Hearing needs: No Vision needs: Yes Meds Allergies Allergy/AdvReac Type Severity Reaction Status Date / Time Penicillins Allergy Severe DIFFICULTY Verified 07/01/25 09:08 BREATHING atorvastatin (From Lipitor) Allergy Unknown Unknown Verified 07/01/25 09:08 bisoprolol AdvReac Intermediate bradycardia Verified 07/01/25 09:08 FRUITS Allergy Intermediate ITCHY Uncoded 07/01/25 09:08 THROAT/HOARSE VOICE/SOMETIMES SOB Home Medications ?Medication ?Instructions ?Recorded ?Confirmed ?Last Taken ?Type Hand held step stool 06/16/24 04/28/25 Unknown H istory Exam Height,Weight and Vital Signs: Height 5 ft 2 in Weight 75.75 kg Narrative Narrative: EKG 03/2025 Vent. Rate : 72 BPM Atrial Rate : 72 BPM P-R Int : 146 ms QRS Dur : 92 ms QT Int : 434 ms P-R-T Axes : 12 -39 33 degrees QTcB Int : 475 ms Normal sinus rhythm Left axis deviation Possible Lateral infarct (cited on or before 10-Sep-2024) Abnormal ECG When compared with ECG of 10-Sep-2024 22:48, Premature ventricular complexes are no longer Present Questionable change in initial forces of Lateral leads ECHO from 2021 Conclusions: - The left ventricular systolic function is normal. The calculated ejection fraction is 67% by biplane method. - There is mild aortic valve regurgitation. Assessment and Plan Final Anesthetic Review Family History of Problems with Anesthesia: No History of Problems with Anesthesia: Yes Documented by User: Sravanthi Briseno DO 07/01/25 09:39 PMFSH Past Medical History Medical History Peripheral vascular disease Hypokalemia Age-related osteoporosis without current pathological fracture Mitral regurgitation Hypertension Hypercholesterolemia Ischemic colitis Bile salt-induced diarrhea GERD (gastroesophageal reflux disease) Anxiety Cardiomyopathy Obesity (BMI 30-39.9) Asthma Coronary artery disease Family History Family History Father Cancer Mother Cancer Family history of problems with anesthesia: No Surgical History Surgical History (Updated 06/29/25 @ 12:08 by Balbina Burr RN) Hx of bilateral cataract extraction H/O colonoscopy History of neck surgery History of thumb surgery History of tubal ligation History of cholecystectomy History of Problems with Anesthesia: Yes (PONV) Social History Social History Household Members: None Housing: Apartment Are you a primary child care aide to a significant other at home: No Do you presently have visiting nurse or other home services: No Alcohol intake: never Patient Tobacco Use Status: Never used Tobacco Tobacco use type: Cigarette e-Cigarette/Vaping Use: Never Used Second Hand Smoke Exposure: No Use of substances other than those prescribed or required for medical reasons: No Have you been hit, kicked, punched, or otherwise hurt by someone within the past year? If so, by whom?: No Are you DNR?: No Advance Directives: No Advance Directives Information Provided: Yes Patient : No Poor oral hygiene: No service: No Current occupational status: disabled Cognitive needs: No Hearing needs: No Vision needs: Yes Meds Allergies Allergy/AdvReac Type Severity Reaction Status Date / Time Penicillins Allergy Severe DIFFICULTY Verified 07/01/25 09:08 BREATHING atorvastatin (From Lipitor) Allergy Unknown Unknown Verified 07/01/25 09:08 bisoprolol AdvReac Intermediate bradycardia Verified 07/01/25 09:08 FRUITS Allergy Intermediate ITCHY Uncoded 07/01/25 09:08 THROAT/HOARSE VOICE/SOMETIMES SOB Home Medications ?Medication ?Instructions ?Recorded ?Confirmed ?Last Taken ?Type Hand held step stool 06/16/24 04/28/25 Unknown H istory Exam Exam Date and Time: 07/01/25 0938 Height,Weight and Vital Signs: Height 5 ft 2 in Weight 75.75 kg Vital Signs Temperature 97.4 F 07/01/25 09:10 Pulse Rate 68 07/01/25 09:10 Respiratory Rate 12 07/01/25 09:10 Blood Pressure 127/52 L 07/01/25 09:10 Pulse Oximetry 100 07/01/25 09:10 Oxygen Delivery Method Room Air 07/01/25 09:10 Temperature 97.4 F 07/01/25 09:10 Pulse Rate 68 07/01/25 09:10 Respiratory Rate 12 07/01/25 09:10 Blood Pressure 127/52 L 07/01/25 09:10 Pulse Oximetry 100 07/01/25 09:10 Oxygen Delivery Method Room Air 07/01/25 09:10 Airway Mallampati Class: III TM Dist: <=3cm Neck ROM: Limited Loose/Missing/Broken Teeth: No (patient denies any loose or broken teeth) Heart: S1S2 Lungs: CTAB Assessment and Plan Assessment Anesthesia Assessment: Anesthesia Plan Discussed and Chart Reviewed Final Anesthetic Review Family History of Problems with Anesthesia: No History of Problems with Anesthesia: Yes (PONV) NPO: Yes ASA Class: III Final Preanesthetic Review: No Changes in Pt Med Stat, Meds/Allgs Chart Reviewed, Consent Obtained/Reviewed (freelance interpreter/translator at bedside for translation) and Anes Risks/Benef Reviewed Patient Risk: Low Procedure Risk: Low Anesthetic Plan Anesthetic Plan: MAC: and Agree w/ Assess. and Plan Disposition: Standard PACU
[2025-07-01 10:00] LABS: Anion Gap 14 (12-20); Carbon Dioxide 27 mmol/L (22-29); Chloride 105 mmol/L (96-108); Potassium 3.4 mmol/L (3.3-5.1); Sodium 143 mmol/L (135-145)
[2025-07-01 11:06] VITALS: BP 90/40; PULSE 55; RESP 16; TEMP 36.8; O2SAT 96
--- NOTE | 2025-07-01 11:19 | P.OPN-COLO_ITS ---
Colonoscopy Operative Note Operative Note Date of Service: 07/01/25 Narrative: Procedure: Colonoscopy Indication: rectal bleeding Endoscopist: Martha Paris MD Anesthesia Provider: Karmen Srinivasan CRNA Anesthesia type: MAC Instrument: Olympus [id number]-H190L Consent: Indication, risks vs benefits, and alternatives were discussed with the patient who gave written informed consent to proceed. An document scanner was utilized to assist with the consent. EKG, pulse, pulse oximetry and blood pressure were monitored throughout the procedure. Please see anesthesia flowsheet. Procedure: The patient was brought to the procedure room and placed in the left lateral decubitus position. IV medications were administered by the anesthesia provider in attendance. A digital rectal exam was performed which was abnormal due to finding of hemorrhoids. A distal attachment cap was affixed to the tip of the colonoscope which was then inserted through the anus and advanced through the colon to the cecum at 80 cm. Appendiceal orifice and ileocecal valve were identified. Mucosa was carefully examined under high definition white light as the instrument was slowly withdrawn in a retrograde panoramic fashion. Retroflexion was performed in rectum. The procedure was somewhat difficult and required pressure to intubate the cecum. There were no immediate obvious complications. The quality of the prep was BBPS: 2+3+2 = adequate Withdrawal time 6 minutes. Limitations: No limitations. Findings: Mucosa: Normal to cecum Protruding lesions: * 1 sessile polyp of size 4 mm in sigmoid colon. Cold snare polypectomy was performed. The polyp was completely removed and retrieved. * Medium internal hemorrhoids without stigmata of recent bleeding. Impression: 1. Normal colon mucosa 2. Total of 1 polyp removed 3. External and internal hemorrhoids Recommendations: - Follow path results. - Repeat colonoscopy in 7-10 years is optional, if patient in good health.
[2025-07-01 11:21] VITALS: BP 123/60; PULSE 60; RESP 16; O2SAT 99
[2025-07-01 11:26] VITALS: BP 151/57; PULSE 54; RESP 16; TEMP 36.5; O2SAT 97
== END 2025-07-01 12:16 | disposition home or self-care (01) ==
PROVIDERS: Nurse Practitioner; PCP Internal Medicine; Visit Provider Internal Medicine
PROC: 0DJD8ZZ Inspection of Lower Intestinal Tract, Via Natural or Artificial Opening Endoscopic (ICD-10-PCS; CPT 45378; principal; 2025-07-01 10:10)
DX: Z12.11 Encounter for screening for malignant neoplasm of colon (principal); K63.5 Polyp of colon; K64.8 Other hemorrhoids; K64.4 Residual hemorrhoidal skin tags; I10 Essential (primary) hypertension; E78.00 Pure hypercholesterolemia, unspecified; J45.909 Unspecified asthma, uncomplicated; Z79.02 Long term (current) use of antithrombotics/antiplatelets; Z79.82 Long term (current) use of aspirin; Z79.899 Other long term (current) drug therapy
CPT/HCPCS: 45385; 36415; 80051; 88305; J2003; J2704

== ENCOUNTER → 2025-07-01 08:09 | Outpatient (BNV) | payer OTHER, SELFPAY | PROVIDERS: PCP Internal Medicine; Visit Provider Internal Medicine | DX: Z12.11 Encounter for screening for malignant neoplasm of colon (principal); D12.5 Benign neoplasm of sigmoid colon; K64.8 Other hemorrhoids | CPT/HCPCS: 45385 ==

== ENCOUNTER 2025-08-16 11:09 | Outpatient (REF) | payer OTHER, SELFPAY ==
[2025-08-16 12:14] LABS: Anion Gap 13 (12-20); Blood Urea Nitrogen 11 mg/dL (9-16); Calcium 9.4 mg/dL (8.4-10.2); Carbon Dioxide 30 mmol/L (22-29); Chloride 105 mmol/L (96-108); Estimated Glomerular Filt Rate > 60; Potassium 4.0 mmol/L (3.3-5.1); Sodium 144 mmol/L (135-145)
--- OUTSIDE RECORDS SUMMARY | 2025-08-16 13:39 | XMS_ITS | Clinical Summary ---
Author Organization [facility] Facility Address [address] [address] Care Team Providers Care Drywall Contractor Name Role Phone Radha Eden MD Primary Care Provider [phone] Allergies Active Allergy Reactions Criticality Noted Date [...] patient's age to complete this topic [place] [address] [place] [id number] [facility] ([id number]) [facility] ([id number]) Care Teams Drywall Contractor Relationship Specialty Start Date End Date Radha Eden MD [facility] [address] [place] PCP - General 11/07/20
--- OUTSIDE RECORDS SUMMARY | 2025-08-16 13:39 | XMS_ITS | Clinical Summary ---
Author Organization [employer] Address [address] [place] [address] [address] [place] [address] Care Team Providers Care Rn L And D Name Role Phone Unavailable Primary Care Provider [...] 75+ series) 2022 COVID-19 Vaccine ( season) 2025 11/22/2022, 10/23/2021, 03/09/2021, Additional history exists Influenza [...]
== END 2025-08-16 11:10 | disposition home or self-care (01) ==
LOC: HO.LAB 11:09
PROVIDERS: PCP Internal Medicine; Visit Provider Internal Medicine Hypertension Specialist
DX: I10 Essential (primary) hypertension (principal)
CPT/HCPCS: 36415; 80048

== ENCOUNTER 2025-08-17 09:57 | Outpatient (AMB) | payer OTHER, SELFPAY ==
[2025-08-17 10:08] VITALS: BP 158/70; PULSE 65; O2SAT 99; BMI 32.2
--- NOTE | 2025-08-17 10:08 | HO.NEPHOV ---
Vital Signs 08/17/25 10:08 08/17/25 10:18 Height 5 ft Weight 165 lb BMI 32.2 BP 158/70 H 140/60 H Blood Pressure Location Rt brachial Rt brachial Position Sitting Sitting Pulse 65 Pulse Source Pulse Oximeter Pulse Oximetry (%) 99 Oxygen Delivery Method Room Air Intake Visit Reasons: 6 MO FU confirmed Product Design Specialist Required: No Product Design Specialist Services: Product Design Specialist Offered & Declined (SHEARING MACHINE FEEDER will translate) Accompanied by: SHEARING MACHINE FEEDER Allergies Penicillins Allergy (Severe, Verified 08/17/25 10:10) DIFFICULTY BREATHING atorvastatin (From Lipitor) Allergy (Unknown, Verified 08/17/25 10:10) Unknown bisoprolol Adverse Reaction (Intermediate, Verified 08/17/25 10:10) bradycardia FRUITS Allergy (Intermediate, Uncoded 07/01/25 09:08) ITCHY THROAT/HOARSE VOICE/SOMETIMES SOB Medication List - Last Reconciled 08/17/25 by Jerry Brown MD [AIR PURIFIER As directed] albuterol sulfate 90 mcg/actuation (Ventolin HFA) 2 puffs inhalation Q6H PRN amlodipine-benazepril 10-40 mg 1 cap PO DAILY 90 days aspirin (Adult Low Dose Aspirin) 81 mg PO DAILY azelastine 137 mcg (0.137 mL) intranasal BID cholecalciferol (vitamin D3) 50 mcg PO DAILY 90 days compr.stocking,thigh,reg,large As directed 20-30 mm HG [Hand held step stool ] lidocaine 4% (Aspercreme (lidocaine)) 1 patch topical DAILY PRN omeprazole 20 mg PO DAILY@0630 potassium chloride ER (Klor-Con M) 10 mEq PO DAILY rosuvastatin 40 mg PO DAILY sertraline 25 mg PO DAILY spironolactone 50 mg PO BID [step stool with handle As directed] HPI Comments Details: 78-year-old woman with a history of resistant hypertension with hypokalemia. Previously she was seen a year ago. Subsequently lost to follow-up. Currently she is accompanied by her SHEARING MACHINE FEEDER. Her blood pressure has been elevated and she has had episodes of hypokalemia. Currently she is on lisinopril along with potassium supplementation and Aldactazide. Today she denies any new complaints no nausea vomiting no polyuria polydipsia no edema. 05/19/2024. Home blood pressure readings are excellent. Accompanied by caregiver. No specific complaints today. She walks about 20-30 minutes every day 02/16/25 DOing well. No new issues Accompanied by daughter- Adenike 08/17/25 - The patient is a 80-year-old female presenting with hypertension and hypokalemia. h/o superimposed WCE - Hypertension: Blood pressure recorded at 158/70 mmHg. - Hypokalemia: Managed with potassium chloride and spironolactone. - Recent labs: Normal with BUN of 11. - Medication adherence: Taking amlodipine, benazepril, potassium chloride, spironolactone. [facility] Medical History Peripheral vascular disease Hypokalemia Age-related osteoporosis without current pathological fracture Mitral regurgitation Hypertension Hypercholesterolemia Ischemic colitis Bile salt-induced diarrhea GERD (gastroesophageal reflux disease) Anxiety Cardiomyopathy Obesity (BMI 30-39.9) Asthma Coronary artery disease Surgical History Hx of bilateral cataract extraction H/O colonoscopy History of neck surgery History of thumb surgery History of tubal ligation History of cholecystectomy Family History Father Cancer Mother Cancer Social History Household Members: None Housing: Apartment Are you a primary caretaker grounds to a significant other at home: No Do you presently have visiting nurse or other home services: No Alcohol intake: never Patient Tobacco Use Status: Never used Tobacco Tobacco use type: Cigarette e-Cigarette/Vaping Use: Never Used Second Hand Smoke Exposure: No service: No Current occupational status: disabled Cognitive needs: No Hearing needs: No Vision needs: Yes Physical Exam Vital Signs: Last Vital Signs Pulse 65 08/17/25 10:08 BP 140/60 H 08/17/25 10:18 Pulse Ox 99 08/17/25 10:08 Oxygen Delivery Method Room Air 08/17/25 10:08 BMI result Body Mass Index 32.2 Results Reviewed Nephrology Results: Hgb, (12.0-16.0) 11.4 g/dl L 04/26/25 WBC, (4.8-10.8) 4.5 X10*3/uL L 04/26/25 Plt Count, (160-400) 255 X10*3/uL 04/26/25 Sodium, (135-145) 144 mmol/L 08/16/25 Potassium, (3.3-5.1) 4.0 mmol/L 08/16/25 Chloride, (96-108) 105 mmol/L 08/16/25 Carbon Dioxide, (22-29) 30 mmol/L H 08/16/25 BUN, (9-16) 11 mg/dL 08/16/25 Creatinine, (0.5-1.4) 0.67 mg/dL 08/16/25 Calcium, (8.4-10.2) 9.4 mg/dL Δ 08/16/25 Renal US 12/31/22 Assessment & Plan Assessment & Plan (1) Hypokalemia: Code(s): E87.6 - Hypokalemia Category: Medical (2) Resistant hypertension: Code(s): I10 - Essential (primary) hypertension Category: Medical Plan Elderly woman with resistant hypertension and hypokalemia. No significant alkalosis With the combination of alkalosis and hypokalemia , hyperaldosteronism is a possibility. However aldosterone level is low at 2 and PA/PRA ratio is 12.5 24 hours ABPM shows reasonably controlled HTN with 24 hr average SBP of 133 WITH superimposed white coat effect. Low salt diet Keep current meds Keep Lotrel one a day. spironolactone 50 mg b.i.d. Coding Level of Care Code Est Pt Level 4 (43541) Diagnoses Hypokalemia E87.6 Resistant hypertension I10
[2025-08-17 10:18] VITALS: BP 140/60
--- OUTSIDE RECORDS SUMMARY | 2025-08-17 11:30 | XMS_ITS | Clinical Summary ---
Author Organization [employer] Address [address] [place] [address] [address] [place] [address] Care Team Providers Care Exceptional Children Teacher Assistant Name Role Phone Unavailable Primary Care Provider [...]
--- OUTSIDE RECORDS SUMMARY | 2025-08-17 11:30 | XMS_ITS | Clinical Summary ---
Author Organization [facility] Facility Address [address] [address] Care Team Providers Care Pvc Loader Name Role Phone Radha Eden MD Primary Care Provider [phone] Allergies Active Allergy Reactions Criticality Noted Date [...] patient's age to complete this topic [place] [id number] [facility] ([id number]) [facility] ([id number]) Care Teams Pvc Loader Relationship Specialty Start Date End Date Radha Eden MD [facility] [address] [place] PCP - General 11/07/20
== END 2025-08-17 10:23 | disposition home or self-care (01) ==
PROVIDERS: PCP Internal Medicine; Visit Provider Internal Medicine Hypertension Specialist
DX: E87.6 Hypokalemia (principal); I10 Essential (primary) hypertension
CPT/HCPCS: 99214

== ENCOUNTER → 2025-08-17 09:57 | Outpatient (BNVA) | payer OTHER, SELFPAY | PROVIDERS: PCP Internal Medicine; Visit Provider Internal Medicine Hypertension Specialist | DX: I10 Essential (primary) hypertension (principal); E87.6 Hypokalemia | CPT/HCPCS: 99212 ==

== ENCOUNTER 2025-10-12 09:15 | Outpatient (REF) | payer OTHER, SELFPAY ==
--- OUTSIDE RECORDS SUMMARY | 2025-10-12 10:38 | XMS_ITS | Clinical Summary ---
Author Organization [employer] Address [address] [place] [address] [address] [place] [address] Care Team Providers Care Door Builder Name Role Phone Unavailable Primary Care Provider [...]
== END 2025-10-12 09:16 ==
LOC: HO.MAMMO 09:15
PROVIDERS: PCP Internal Medicine; Visit Provider Internal Medicine
DX: Z12.31 Encounter for screening mammogram for malignant neoplasm of breast (principal)
CPT/HCPCS: 77063; 77067

== ENCOUNTER → 2025-10-12 09:30 | Outpatient (BNV) | payer OTHER, SELFPAY | PROVIDERS: PCP Internal Medicine; Visit Provider Internal Medicine | DX: Z12.31 Encounter for screening mammogram for malignant neoplasm of breast (principal) | CPT/HCPCS: 77063; 77067 ==